=== PATIENT | female | born 1965 | race Caucasian/White ===

== ENCOUNTER 2017-03-05 16:41 | Emergency (ER) | payer BC ==
[2017-03-05 16:45] VITALS: BP 125/82; PULSE 103; TEMP 98; BMI 29.2
--- NOTE | 2017-03-13 17:54 | EKG ---
Test Reason : Blood Pressure : / mmHG Vent. Rate : 102 BPM Atrial Rate : 102 BPM P-R Int : 158 ms QRS Dur : 102 ms QT Int : 378 ms P-R-T Axes : 065 042 077 degrees QTc Int : 492 ms SINUS TACHYCARDIA ,I CANNOT RULE OUT INFERIOR WALL NC OFINDETERMINATE AGE ABNORMAL ECG WHEN COMPARED WITH ECG OF 28-FEB-2017 13:18, PREMATURE VENTRICULAR COMPLEXES ARE NO LONGER PRESENT REPEAT EKG IF CLINICALLY INDICATED Confirmed by REJI KHAN MD ([id number]) on 03/13/2017 5:54:27 PM Referred By: Confirmed By:REJI KHAN MD
== END 2017-03-05 18:17 | disposition left against medical advice (07) ==
LOC: JER 16:41
DX: Z53.21 Procedure and treatment not carried out due to patient leaving prior to being seen by health care provider (principal)
CPT/HCPCS: 93005; 93010; 99281-25

== ENCOUNTER 2017-03-05 18:33 | Emergency (ER) | payer BC ==
--- NOTE | 2017-03-05 19:12 | PDOC ---
History of Present Illness - General History Source: Patient, Old Records, Primary Care Provider Exam Limitations: No Limitations <Kacey Clements - Last Filed: 03/05/17 19:53> - General History Source: Patient Exam Limitations: No Limitations <Kelechi uAgustin I - Last Filed: 03/05/17 20:22> - General Chief Complaint: Tachycardia Stated Complaint: ABNORMAL EKG Time Seen by Provider: 03/05/17 19:09 - History of Present Illness Initial Comments: 03/05/17 19:46 The patient is a 51 year old female, with a significant past medical history of asthma, hypertension, chronic back pain, uterine CA and bilateral breast CA, who presents to the emergency department sent by her PCP for evaluation. The patient states that she is scheduled to undergo a bilateral mastectomy tomorrow secondary to breast CA and as part of her medical clearance for surgery, she had an EKG done in her PCPs office earlier today. However, in office she was slightly tachycardic at 108 bpm and her EKG was read as abnormal so she was referred to the ED for further evaluation. PAST MEDICAL HISTORY: See HPI. PAST SURGICAL HISTORY: No significant history. FAMILY HISTORY: No pertinent history. SOCIAL HISTORY: Patient lives with family and is employed. MEDICATIONS: Reviewed. ALLERGIES: As per nursing notes. Adult ROS General: No fevers or chills, no weakness, no weight loss HEENT: No change in vision. No sore throat. No ear pain CardioVascular: No chest pain or shortness of breath Respiratory: No cough or wheezing Gastrointestinal: No nausea, vomiting, diarrhea or constipation. No rectal bleeding Genitourinary: No dysuria, hematuria, or frequency Musculoskeletal: No joint or muscle pain or swelling Neurologic: No headache, vertigo, dizziness or loss of consciousness Psychiatric: No depression Skin: No rashes or easy bruising Endocrine: No increased thirst or abnormal weight change Allergic: No skin or latex allergy All other systems reviewed and normal. Adult Exam: General: Well-nourished well-developed individual, no acute distress. HEENT: Throat: Normal, tonsils normal, no erythema or exudate. Neck: Supple, no meningeal signs, no lymphadenopathy. Eyes: Pupils equal reactive and round, extraocular motion intact. Chest: Nontender to palpation. Cardiac: S1-S2 normal, regular rate and rhythm, no murmurs rubs or gallops. Respiratory: Lungs clear to auscultation bilateral. Abdomen: Soft, nondistended, normal bowel sounds, nontender to palpation diffusely. Extremities: Warm, dry, no cyanosis, clubbing or edema. Skin: No rashes. Neuro: Alert and oriented x3, nonfocal exam, grossly intact, normal gait. Psych: Normal mood and affect. (Kacey Clements) 03/05/17 20:18 A portion of this note was documented by scribe services under my direction. I have reviewed the details of the note, within reason, and agree with the documentation. The case summary and management plan written by me. This is a 51-year-old female who was sent in by her primary care doctor for evaluation of an abnormal EKG. Patient had an a.m. EKG in the office that was read by the machine as being abnormal. Patient's EKG was repeated here in the emergency room and was unchanged from the one in the office however my interpretation of the EKG is that there is no acute ST-T wave changes there is no acute pathology it is a normal EKG. Patient had a basic workup including a CBC chemistries and a TSH as well as a troponin. Patient's workup was negative however the TSH was still pending at the time patient was discharged. Patient was given copies of her blood work and well exam with her tomorrow morning when she goes for her surgery. Patient is scheduled for bilateral mastectomy for breast cancer. Patient's surgeon was called Dr. Pina and discussed the workup with him as well. I told Dr. Pina that I would give her copies of her blood work at that she would take that with her in the morning. (Kelechi Augustin I) Past History <Kacey Clements - Last Filed: 03/05/17 19:53> - Past Medical History Anemia: No Asthma: Yes Cancer: Yes (uterine ca stage 1, hemangioma of chest and thigh) Cardiac Disorders: No CVA: No COPD: No CHF: No Dementia: No Diabetes: No GI Disorders: No Disorders: No HTN: Yes Hypercholesterolemia: No Kidney Stones: Yes Liver Disease: No Suicide Attempt (Hx): No Seizures: No Thyroid Disease: No Other medical history: CHRONIC BACK PAIN - Surgical History Abdominal Surgery: No Appendectomy: No Cardiac Surgery: No Cholecystectomy: No Lung Surgery: No Neurologic Surgery: No Orthopedic Surgery: No - Immunization History Immunization Up to Date: Yes - Psycho/Social/Smoking Cessation Hx Anxiety: No Suicidal Ideation: No Smoking History: Never smoked Have you smoked in the past 12 months: Yes Number of Cigarettes Smoked Daily: 20 'Breaking Loose' booklet given: 07/11/14 Hx Alcohol Use: No Drug/Substance Use Hx: No Substance Use Type: None Hx Substance Use Treatment: No <Kelechi Augustin I - Last Filed: 03/05/17 20:22> - Past Medical History Allergies/Adverse Reactions: Allergies Allergy/AdvReac Type Severity Reaction Status Date / Time Iodine and Iodide Containing Allergy Hives Verified 03/05/17 16:46 Produc Penicillins Allergy Rash Verified 03/05/17 16:46 Home Medications: Ambulatory Orders Morphine Sulfate [Ms Contin] 15 mg PO BID 07/21/14 Diphenhydramine HCl [Benadryl Capsule -] 25 mg PO Q6H PRN #30 capsule 07/23/14 Methylnaltrexone [place] [Relistor -] 12 mg SQ DAILY PRN 02/28/17 Alprazolam [Xanax] 0.5 mg PO TID 03/05/17 Cyclobenzaprine HCl [Flexeril 10 mg] 10 mg PO BID PRN 03/05/17 Escitalopram Oxalate [Lexapro -] 10 mg PO DAILY 03/05/17 Hydrochlorothiazide [Hctz -] 25 mg PO DAILY 03/05/17 Hydromorphone [Dilaudid -] 2 mg PO Q6H 03/05/17 Valsartan [Diovan] 160 mg PO DAILY 03/05/17 Cardiac Specific PMH - Complaint Specific PMHX Pacemaker: No <Kelechi Augustin I - Last Filed: 03/05/17 20:22> - Vital Signs Last Vital Signs Temp Pulse Resp BP Pulse Ox 99.4 F 95 H 18 121/72 96 03/05/17 18:34 03/05/17 18:34 03/05/17 18:34 03/05/17 18:34 03/05/17 18:34 Heart Score/ECG Review #1 General ECG Interpretation: Sinus Rhythm, Normal Rate (95 bpm; Normal EKG.) <VeniceKacey benjamin - Last Filed: 03/05/17 19:53> ED Treatment Course - LABORATORY CBC & Chemistry Diagram: 03/05/17 19:40 03/05/17 19:40 <VeniceKacey benjamin - Last Filed: 03/05/17 19:53> - LABORATORY CBC & Chemistry Diagram: 03/05/17 19:40 03/05/17 19:40 <Kelechi Augustin Sher - Last Filed: 03/05/17 20:22> - ADDITIONAL ORDERS Additional order review: Laboratory Results 03/05/17 19:40 Sodium 135 L Potassium 3.5 Chloride 95 L Carbon Dioxide 32 H Anion Gap 8 BUN 24 H Creatinine 0.8 Creat Clearance w eGFR > 60 Random Glucose 92 Calcium 9.6 Total Bilirubin 0.2 AST 22 ALT 22 Alkaline Phosphatase 75 Creatine Kinase 65 Total Protein 6.9 Albumin 3.9 03/05/17 19:40 RBC 4.95 MCV 89.4 MCHC 33.8 RDW 13.4 MPV 9.0 Neutrophils % 71.0 Lymphocytes % 20.0 Monocytes % 5.5 Eosinophils % 1.4 Basophils % 2.1 H *DC/Admit/Observation/Transfer <VeniceKacey benjamin - Last Filed: 03/05/17 19:53> - Discharge Dispostion Admit: No <KrishnaIfeanyiKelechi hawkins Sher - Last Filed: 03/05/17 20:22> Diagnosis at time of Disposition: General medical exam - Discharge Dispostion Disposition: HOME Condition at time of disposition: Good - Referrals Referrals: Sergio Dennis MD [Primary Care Provider] - - Patient Instructions Additional Instructions: Take a copy of your blood work with you tomorrow when you go for your surgery. You were given a copy of your blood work take it with you tomorrow when you go for your surgery. A copy of her EKG was transmitted to your surgical's Center. They will also be able to get a copy of your blood work at the surgical center but take your copy with your copy with you. Return to the emergency department immediately with ANY new, persistent or worsening symptoms. Continue any medications as previously prescribed by your physician. You should follow up with your primary doctor as soon as possible regarding today's emergency department visit. . Please make sure your doctor reviews the results of your emergency evaluation. Thank you for coming to the Emergency Department today for your care. It was a pleasure to see you today. Please note that your evaluation is INCOMPLETE until you follow-up with your doctor. - Attestations Scribe Attestion: 03/05/17 19:37 Documentation prepared by Kacey Clements, acting as medical reimbursement specialist for Kelechi Augustin MD. (Kacey Clements)
[2017-03-05 19:13] VITALS: BP 121/72; PULSE 95; TEMP 99.4; BMI 29.2
[2017-03-05 19:57] LABS: BASOPHIL 2.1 % (0-2.0); EOSINOPHIL 1.4 % (0-4.5); MCH 30.2 pg (25.7-33.7); MCHC 33.8 g/dl (32.0-36.0); MEAN CELL VOLUME 89.4 fl (80-96); PLATELET COUNT 219 K/MM3 (134-434); RDW 13.4 % (11.6-15.6); WHITE BLOOD COUNT 8.3 K/mm3 (4.0-10.8)
[2017-03-05 20:13] LABS: ALBUMIN 3.9 g/dl (3.5-5.0); ALK PHOS 75 U/L (32-92); ANION GAP 8 (8-16); BILIRUBIN,TOTAL 0.2 mg/dl (0.2-1.0); CALCIUM 9.6 mg/dl (8.4-10.2); CO2 32 mmol/L (22-28); CPK 65 IU/L (26-192); CREATININE 0.8 mg/dl (0.6-1.3); GLUCOSE,RANDOM 92 mg/dl (74-106); SGOT/AST 22 U/L (10-42); SGPT/ALT 22 U/L (10-40); TOT PROT 6.9 g/dl (6.4-8.3)
[2017-03-05 20:22] LABS: TROPONIN I (DFP) < 0.03 ng/ml (0.03-0.50)
[2017-03-05 21:19] LABS: THYROID STIMULATING HORMONE 0.36 uIU/ml (0.358-3.74)
--- NOTE | 2017-03-06 19:34 | EKG ---
Test Reason : Blood Pressure : / mmHG Vent. Rate : 095 BPM Atrial Rate : 095 BPM P-R Int : 148 ms QRS Dur : 104 ms QT Int : 380 ms P-R-T Axes : 060 029 070 degrees QTc Int : 477 ms NORMAL SINUS RHYTHM LEFT ATRIAL ABNORMALITY ST-T ABNORMALITIES WHEN COMPARED WITH ECG OF 05-MAR-2017 16:54, ST-T ABNORMALITIES ARE AGAIN NOTED IN aVL CLINICAL CORRELATION IS RECOMMENDED Confirmed by REJI KHAN MD ([id number]) on 03/06/2017 7:34:27 PM Referred By: Jason MORALES Confirmed By:REJI KHAN MD
== END 2017-03-05 20:27 | disposition home or self-care (01) ==
LOC: FER 18:33
DX: Z01.818 Encounter for other preprocedural examination (principal); I10 Essential (primary) hypertension; J45.909 Unspecified asthma, uncomplicated; Z85.3 Personal history of malignant neoplasm of breast; Z85.42 Personal history of malignant neoplasm of other parts of uterus
CPT/HCPCS: 36415; 80053; 84443; 84484; 85025; 93005; 93010; 99282-25

== ENCOUNTER 2017-03-06 07:23 | Day surgery (SDC) | payer BC ==
[2017-02-28 13:07] VITALS: BMI 29.2
--- NOTE | 2017-02-28 14:27 | HP ---
Admitting History and Physical - Primary Care Physician PCP: Joy Maxwell - Admission Chief Complaint: bilateral breast cancer History of Present Illness: 51 yo female noted to have suspicious lesions on mammo and US bilateral breast, underwent bilateral US guided core bxs (01/19/2017) which were positive for invasive ductal carcinoma. Hormone studies as follows: right- ER positive, IA and Her 2 negative, left- ER and IA positive, Her 2 negative. Patient has opted to have bilateral mastectomies, snbxs, possible andxs with lymphoscintogram and reconstruction. History Source: Patient Limitations to Obtaining History: No Limitations - Past Medical History CLINICAL BUSINESS ANALYST: Yes: Other (hearing impaired) Cardiovascular: Yes: HTN Gastrointestinal: Yes: Other (h/o radiation colitis) Heme/Onc: Yes: Cancer (uterine cancer 2013) Infectious Disease: Yes: C-Diff, MRSA Psych: Yes: Panic - Past Surgical History Past Surgical History: Yes: Hysterectomy, Oopherectomy Additional Past Surgical History: multiple exploratory laps sec to radiation colitis - Smoking History Smoking history: Current every day smoker Have you smoked in the past 12 months: Yes Aproximately how many cigarettes per day: 20 - Alcohol/Substance Use Hx Alcohol Use: No Home Medications - Allergies Allergies/Adverse Reactions: Allergies Allergy/AdvReac Type Severity Reaction Status Date / Time Iodine and Iodide Containing Allergy Hives Verified 02/28/17 13:24 Produc Penicillins Allergy Rash Verified 02/28/17 13:24 - Home Medications Home Medications: Ambulatory Orders Morphine Sulfate [Ms Contin] 15 mg PO BID 07/21/14 Diphenhydramine HCl [Benadryl Capsule -] 25 mg PO Q6H PRN #30 capsule 07/23/14 FENTANYL 12mcg PATCH [DURAGESIC 12mcg PATCH -] 1 each TD Q72H #10 patch.td72 Methylnaltrexone [place] [Relistor -] 12 mg SQ DAILY PRN 02/28/17 Family Disease History - Family Disease History Family Disease History: CA: Mother (breast cancer 50s) Other Family History: maternal GM-breast cancer 70s. maternal cousin-breast cancer-20s. maternal aunt-uterine cancer. maternal aunt-cancer unknown type Review of Systems - Review of Systems Constitutional: reports: Chills, Other (insomnia and weight gain) Eyes: reports: Blurred Vision HENT: reports: Hearing Loss Cardiovascular: reports: Palpitations Respiratory: reports: Wheezing Musculoskeletal: reports: Back Pain, Joint Pain, Muscle Pain, Other (neck pain) Neurological: reports: Change in Speech, Syncope Hematology/Lymphatic: reports: Easily Bruised Psychiatric: reports: Anxiety Physical Examination Constitutional: Yes: Well Nourished Cardiovascular: Yes: Regular Rate and Rhythm Respiratory: Yes: CTA Bilaterally Breast(s): Yes: Other (breasts are diffusely nodular without suspicious masses or adenopathy noted bilaterally) Problem List - Problems (1) Bilateral breast cancer Code(s): C50.911 - MALIGNANT NEOPLASM OF UNSP SITE OF RIGHT FEMALE BREAST C50.912 - MALIGNANT NEOPLASM OF UNSPECIFIED SITE OF LEFT FEMALE BREAST Qualifiers: Breast location: overlapping sites of breast Patient sex: female Assessment/Plan Plan: bilateral mastectomy with snbx, poss andx, lymphoscintogram and reconstruction
[2017-03-06] MEDS ORDERED: ISOSULFAN BLUE 10 MG/ML VIAL SQ ONE (07:56)
[2017-03-06] MEDS ORDERED: HEPARIN NA (PORCINE) 5,000 UNITS/ML 1ML VIAL ONE (07:56)
[2017-03-07] MEDS ORDERED: HEPARIN NA (PORCINE) 5,000 UNITS/ML 1ML VIAL SQ SCH (10:00)
--- NOTE | 2017-03-07 14:59 | HP ---
History & Physical Update - History History: Change (see notes) (Patient had an abnormal EKG during preop and was seen by a manager business continuity who has cleared patient.) - Physical Physical: No Change - Assessment Assessment: No Change - Plan Plan: No Change
[2017-03-14] MEDS ORDERED: HEPARIN NA (PORCINE) 5,000 UNITS/ML 1ML VIAL SQ SCH (10:00)
== END 2017-03-06 09:30 | disposition home or self-care (01) ==
LOC: JASUSAT 07:23 → JSAMEDAYSX 07:23 → UNDOADMIN 07:23 → EDSTATUS 09:00 → UNDODISIN 09:30 → JASUSAT 09:30
PROVIDERS: ATTEND Surgery Surgical Oncology
PROC: 0HBV0ZZ Excision of Bilateral Breast, Open Approach (ICD-10-PCS; principal; 2017-03-06)
DX: C50.912 Malignant neoplasm of unspecified site of left female breast (principal); C50.911 Malignant neoplasm of unspecified site of right female breast; Z53.8 Procedure and treatment not carried out for other reasons
CPT/HCPCS: 78195-TC; A9541; J1644

== ENCOUNTER 2017-03-13 06:06 | Inpatient (IN) | payer BC ==
[2017-03-13 06:38] VITALS: BMI 29.2
[2017-03-13] MEDS ORDERED: ACETAMINOPHEN INJECTION 200 ML IVPB ONE (07:34)
[2017-03-13] MEDS ORDERED: ROPIVACAINE HCL 0.5% 30ML VIAL ONE (07:36)
[2017-03-13] MEDS ORDERED: DESFLURANE GAS 240 ML BOTTLE IH ONE (07:36)
[2017-03-13] MEDS ORDERED: SEVOFLURANE 250 ML BTL ONE (07:36)
[2017-03-13] MEDS ORDERED: SCOPOLAMINE HYDROBROMIDE 1 PATCH PATCH.TD72 ONE (07:36)
[2017-03-13] MEDS ORDERED: PROPOFOL 20 ML ONE ×2 (07:44)
[2017-03-13] MEDS ORDERED: ISOSULFAN BLUE 10 MG/ML VIAL SQ ONE (07:44)
[2017-03-13] MEDS ORDERED: PHENYLEPHRINE HCL 10 MG/1 ML SINGLE DOSE VIAL ONE (07:44)
[2017-03-13] MEDS ORDERED: DEXAMETHASONE SOD PHOSPHATE 4 MG/1 ML VIAL ONE (07:44)
[2017-03-13] MEDS ORDERED: ROCURONIUM BROMIDE 50 MG/5 ML VIAL ONE ×4 (07:45)
[2017-03-13] MEDS ORDERED: MIDAZOLAM HCL 2 MG/2 ML SINGLE DOSE VIAL ONE ×2 (07:45)
[2017-03-13] MEDS ORDERED: SUCCINYLCHOLINE CHLORIDE 200 MG/10 ML VIAL ONE (07:45)
[2017-03-13] MEDS ORDERED: LIDOCAINE HCL/PF 2% SDV 5ML VIAL ONE (07:50)
[2017-03-13] MEDS ORDERED: DEXAMETHASONE SOD PHOSPHATE/PF 10 MG/ML SDV ONE (07:59)
[2017-03-13] MEDS ORDERED: ZOLPIDEM TARTRATE 5 MG TABLET PO PRN (08:59)
[2017-03-13] MEDS ORDERED: ONDANSETRON 4 MG/2 ML VIAL IVPB PRN (08:59)
[2017-03-13] MEDS ORDERED: DEXTROSE 5%-0.45% SALINE 1,000 ML IV SCH (09:00)
[2017-03-13] MEDS ORDERED: CYCLOBENZAPRINE HCL 10 MG TABLET (FP) PO PRN (09:01)
[2017-03-13] MEDS ORDERED: HYDROmorphone HCL 2 MG TABLET PO SCH (09:15)
[2017-03-13] MEDS ORDERED: HEPARIN NA (PORCINE) 5,000 UNITS/ML 1ML VIAL ONE (09:21)
[2017-03-13] MEDS ORDERED: LEVOFLOXACIN 500 MG IVPB 100 ML IVPB ONE ×2 (09:25→16:53)
[2017-03-13] MEDS ORDERED: CLINDAMYCIN PHOSPHATE 600 MG/4 ML VIAL ONE (09:26)
[2017-03-13] MEDS ORDERED: CLINDAMYCIN 600 MG PREMIX BAG IVPB ONE (09:28)
[2017-03-13] MEDS: ACETAMINOPHEN 1000 MG/100 ML VIAL (NON FORMULARY) IVPB ONE ×2 (10:00→16:30)
[2017-03-13] MEDS ORDERED: amLODIPine BESYLATE 10 MG TABLET (FP) PO SCH (10:00)
[2017-03-13] MEDS ORDERED: morphine SO4 SUSTAINED ACTING 15 MG TABLET.SA PO SCH (10:00)
[2017-03-13] MEDS ORDERED: ESCITALOPRAM OXALATE 10 MG TABLET (FP) PO SCH (10:00)
[2017-03-13] MEDS ORDERED: HYDROmorphone HCL/PF 1 MG/ML VIAL (FOR PYXIS CHARGING ONLY) ONE (10:42)
[2017-03-13] MEDS ORDERED: GENTAMICIN SO4 80 MG/2 ML VIAL ONE ×2 (11:31→12:38)
[2017-03-13] MEDS ORDERED: SODIUM CHLORIDE 0.9% P/F 10 ML VIAL IJ ONE (13:22)
[2017-03-13] MEDS ORDERED: GLYCOPYRROLATE 0.2 MG/1 ML VIAL ONE (13:22)
[2017-03-13] MEDS ORDERED: NEOSTIGMINE METHYLSULFATE 0.5 MG/ML - 10 ML MDV ONE (13:25)
[2017-03-13] MEDS ORDERED: HYDROmorphone *PCA* 10MG/50ML DISP.SYRIN PCA ONE (15:50)
[2017-03-13] MEDS ORDERED: ONDANSETRON 4 MG/2 ML VIAL IVPUSH PRN (15:55)
[2017-03-13] MEDS ORDERED: PROMETHAZINE HCL 25 MG/1 ML VIAL IVPUSH PRN (15:55)
[2017-03-13] MEDS ORDERED: PROMETHAZINE HCL 25 MG/1 ML VIAL IVPB PRN (15:55)
--- NOTE | 2017-03-13 15:55 | OP ---
Operative Note - Note: Operative Date: 03/13/17 Pre-Operative Diagnosis: bilateral absence of breasts Operation: bilateral breast reconstruction with tissue expanders and ADM, bilateral axillary closures and SPY Findings: above Post-Operative Diagnosis: Same as Pre-op Surgeon: Alan Sharma Tack Cleaner: Yoon Thrasher Anesthesia: General Specimens Removed: bilateral breast skin Estimated Blood Loss (mls): 400 Drains & Tubes with Location: OSMAR x 2 each side
[2017-03-13] MEDS ORDERED: LACTATED RINGERS SOLUTION 1,000 ML IV SCH (16:00)
[2017-03-13] MEDS: HYDROmorphone *PCA* 10MG/50ML DISP.SYRIN PCA SCH (16:05)
--- NOTE | 2017-03-13 16:12 | SURG ---
Surgery Tobacco Packing Machine Operator Note Tobacco Packing Machine Operator: Yoon Thrasher PA-C Date of Service: 03/13/17 Diagnosis: bilateral absence of breasts Procedure: bilateral breast reconstruction with tissue expanders and ADM, bilateral axillary closures and SPY I was present for the entirety of the operative procedure. For further detail, please refer to operative report. Visit type - Case Type Case Type: Scheduled Admission - Emergency Emergency Visit: No - New patient This patient is new to me today: Yes Date on this admission: 03/13/17 - Critical Care Critical Care patient: No
--- NOTE | 2017-03-13 16:48 | OP ---
DATE OF OPERATION: 03/13/2017 ADDENDUM Please note that the patient was given sequential compression stockings and GLEN hose preoperatively and were on for the entirety of the case. UMANG CUNNINGHAM M.D. [id number]
[2017-03-13] MEDS ORDERED: LEVOFLOXACIN 500 MG PREMIX BAG IVPB ONE (17:00)
[2017-03-13] MEDS: HYDROCHLOROTHIAZIDE 25 MG TABLET (FP) PO SCH (18:28)
[2017-03-13] MEDS: SODIUM CHLORIDE 0.9%/KCL 1,000 ML IV SCH (18:31)
--- NOTE | 2017-03-13 18:44 | OP ---
DATE OF OPERATION: 03/13/2017 PREOPERATIVE DIAGNOSIS: Bilateral breast cancer. POSTOPERATIVE DIAGNOSIS: Bilateral breast cancer. PROCEDURE: Left modified radical mastectomy, right total mastectomy, and bilateral sentinel lymph node biopsies. ANESTHESIA: General intubated. ATTENDING SURGEON: Mady Maxwell MD CUSTOMER COUNTER REPRESENTATIVE: PENG Barbosa ESTIMATED BLOOD LOSS: Minimal. COMPLICATIONS: None. Patient was made aware of the risks and benefits of the procedure and consented. She was placed in a supine position after going to Nuclear Medicine where radioactive mapping was performed on both breasts. After general anesthesia was induced, the patient was intubated. The left side was approached first, and 2.5 mL of 1% isosulfan blue were locally infiltrated. The operative site was prepped and draped in the usual sterile fashion. After waiting approximately 10 minutes with gentle manual compression, a curvilinear incision was made in the left axilla. Using blunt and sharp dissection, tissues were dissected down. Using the Neoprobe, we identified at least 4 lymph nodes that were blue and hot, and these were submitted for frozen section. Frozen section was reported as positive for metastasis. While we waited for that report, a circular incision was widely made around the left nipple. After injecting the breast with a mixture of 1 L injectable normal saline with an ampule of epinephrine and 40 mL of 1% lidocaine. Using sharp dissection with the facelift scissors, skin flaps were made superior to the clavicle, medial to the sternum, lateral to latissimus dorsi, and inferior to the inframammary fold. Using electrocautery, the breast tissue was taken off the pectoral muscle extending laterally. The clavipectoral fascia was incised, revealing the lateral chest wall and the axillary vein. Long thoracic nerve was identified and retracted medially, as well as the thoracodorsal trunk which was retracted laterally. Tissues between the two were bluntly and sharply dissected free. Hemostasis maintained by pressure and electrocautery. The specimen was then submitted with a short suture superior/long suture lateral. Additional axillary nodes were submitted separately. Investigation of the breast showed that there was some dense breast tissue anteriorly, so an additional anterior margin was submitted with a clip at the new margin. X-ray of the left breast showed that the clips were all in the specimen. Wound was copiously irrigated with normal saline. Hemostasis maintained by pressure, electrocautery, and hemoclips. That procedure was then turned over to Dr. Sharma who performed an hvac service technician reconstruction. He will dictate that portion of the procedure. After changing gloves and gowns as well as obtaining new instruments, the right side was approached. Next, 2.5 mL of 1% isosulfan blue were locally infiltrated. After waiting approximately 10 minutes, with gentle manual compression, a curvilinear incision was made in the right axilla. Using blunt and sharp dissection, tissues were dissected down where again a cluster of blue and hot lymph nodes were identified, totaling about 3 lymph nodes which were submitted for frozen section. These were reported as no evidence of metastasis. Palpation of the rest of the axilla showed no other suspicious masses, and interrogation by the Neoprobe showed the background was low, less than 10% of the baseline. The right breast was then injected with the fluid previously described. A wide circular incision was made around the nipple, and using facelift scissors, flaps were made superior to the clavicle, medial to the sternum, lateral to latissimus dorsi, and inferior to the inframammary fold. Using electrocautery, the breast tissue was taken off the pectoralis muscle extending to the latissimus dorsi. The specimen was then submitted with a short suture superior/long suture lateral. The wound was copiously irrigated with normal saline. Hemostasis maintained by electrocautery. Dr. Sharma again was to perform an hvac service technician implant on that portion of the chest wall which he will dictate separately. MADY MAXWELL M.D. [id number]
[2017-03-13] MEDS: HYDROmorphone HCL 2 MG TABLET PO SCH (21:13)
[2017-03-13] MEDS: BUDESONIDE/FORMETEROL FUMARATE 80/4.5 mcg INHALER IH SCH (21:45)
[2017-03-14] MEDS: CYCLOBENZAPRINE HCL 10 MG TABLET (FP) PO PRN (00:50)
[2017-03-14] MEDS: HYDROmorphone HCL 2 MG TABLET PO SCH (03:34)
[2017-03-14] MEDS: SODIUM CHLORIDE 0.9%/KCL 1,000 ML IV SCH (03:35)
[2017-03-14] MEDS ORDERED: HYDROmorphone *PCA* 10MG/50ML DISP.SYRIN PCA ONE (06:05)
[2017-03-14] MEDS: HYDROmorphone *PCA* 10MG/50ML DISP.SYRIN PCA SCH ×4 (06:08→23:55)
--- NOTE | 2017-03-14 08:08 | PN ---
Progress Note (short form) - Note Progress Note: POD 1 All tissues viable, VSSAF No collections, no bleed, CBC pending OSMAR's thin and functioning UOP 1000 josue shrestha d/c'd this morning OOB ambulate today Patient with pain, will continue KEYPUNCH OPERATORS SUPERVISOR for today, evaluated by anesthesia Fluids decreased to maintenance
[2017-03-14] MEDS ORDERED: HYDROmorphone *PCA* 10MG/50ML DISP.SYRIN PCA SCH (08:30)
--- NOTE | 2017-03-14 08:32 | PN ---
Progress Note (short form) - Note Progress Note: Anesthesia postop note. POD#1. S/P Bilateral mastectomy , under GETA. HIGHWAY PAINTER HELPER. Pat seen and examined. VSS. No post anesthesia complications. C/O pain. 6-04/17, when trying to move. Reviewed the HIGHWAY PAINTER HELPER . Increased Dilaudid, 0.3 mg q 6 min and 0.5 mg iv Dilaudid for breakthrough pain. D/C all po narcotic orders.Informed the RN, Ms Ferguson and the pharmacy. Will follow uo.
--- NOTE | 2017-03-14 08:56 | PN ---
Progress Note, Physician Chief Complaint: Bilateral breast cancer S/P Left modified radical mastectomy and right total mastectomy sentenel node biopsies director global and alloder reconstruction POD #1 History of Present Illness: Patient is C/O pain , eating small amounts. Anesthesia discontinued all PO narcotics and increased Dilaudid and added breakthrough dose. Patient has not been OOB walking this am - Current Medication List Current Medications: Active Medications Acetaminophen (Tylenol -) 650 mg PO Q4H PRN PRN Reason: FEVER Amlodipine Besylate (Norvasc -) 10 mg PO DAILY [facility] Budesonide/Formoterol Fumarate (Symbicort 80/4.5mcg -) 2 puff IH BID RUBEN Last Admin: 03/13/17 21:45 Dose: 2 puff Cyclobenzaprine HCl (Flexeril -) 10 mg PO BID PRN PRN Reason: PAIN Last Admin: 03/14/17 00:50 Dose: 10 mg Escitalopram Oxalate (Lexapro -) 10 mg PO DAILY [facility] Heparin Sodium (Porcine) (Heparin -) 5,000 unit SQ BID [facility] Hydrochlorothiazide (Hctz -) 25 mg PO BID@0600,1800 [facility] Last Admin: 03/13/17 18:28 Dose: Not Given Sodium Chloride (1/2 Normal Saline) 1,000 mls @ 75 mls/hr IV ASDIR [facility] Ondansetron HCl (Zofran Injection) 4 mg IVPB Q6H PRN PRN Reason: NAUSEA AND/OR VOMITING Promethazine HCl (Phenergan Injection -) 12.5 mg IVPB Q6H PRN PRN Reason: NAUSEA AND/OR VOMITING - Objective Vital Signs: Vital Signs Temperature 98.0 F 03/14/17 05:00 Pulse Rate 96 H 03/14/17 06:08 Respiratory Rate 20 03/14/17 06:08 Blood Pressure 96/70 03/14/17 06:08 O2 Sat by Pulse Oximetry (%) 93 L 03/13/17 21:00 Constitutional: Yes: Other (C/O pain) Breast(s): Yes: Other (Bilateral Flaps viable incision intact no signs of infection OSMAR drains functioning) Problem List - Problems (1) History of bilateral breast cancer Code(s): Z85.3 - PERSONAL HISTORY OF MALIGNANT NEOPLASM OF BREAST Assessment/Plan continue ARCHITECTURAL PRACTICE MANAGER to be reevaluated by anesthesia, All po narcotics were DC'd OOB with assitance Iv antibiotics SCD and heparin BID CBC pending
[2017-03-14 09:05] LABS: MCH 29.7 pg (25.7-33.7); MEAN PLT VOLUME 8.7 fl (7.5-11.1); PLATELET COUNT 180 K/MM3 (134-434); RDW 14.3 % (11.6-15.6); WHITE BLOOD COUNT 11.4 K/mm3 (4.0-10.0)
[2017-03-14] MEDS ORDERED: PT OWN MED DRAWER 7, Y5N ONE ×2 (09:22→20:47)
[2017-03-14] MEDS: ESCITALOPRAM OXALATE 10 MG TABLET (FP) PO SCH (09:32)
[2017-03-14] MEDS: amLODIPine BESYLATE 10 MG TABLET (FP) PO SCH (09:32)
[2017-03-14] MEDS: HEPARIN NA (PORCINE) 5,000 UNITS/ML 1ML VIAL SQ SCH ×2 (09:32→21:27)
[2017-03-14] MEDS: SODIUM CHLORIDE 0.45% 1,000 ML IV SCH (09:34)
[2017-03-14] MEDS: BUDESONIDE/FORMETEROL FUMARATE 80/4.5 mcg INHALER IH SCH ×2 (09:35→21:27)
--- NOTE | 2017-03-14 10:21 | CONSULT ---
Consult Reason for Consultation:: HTN - History of Present Illness History of Present Illness: 51 Y/O FEMALE WITH H/O ENDOMETRIAL CA S/P PRANAV AND DSO,HTN ADMITTED FOR MASTECTOMY PT IS POD #1 C/O PAIN WHEN MOVING - Past Medical History VP TRANSPORTATION: Yes: Other (hearing impaired) Cardio/Vascular: Yes: HTN Gastrointestinal: Yes: Other (h/o radiation colitis) Reproductive: Yes: Other (ENDOMETRIAL CA) Infectious Disease: Yes: C-Diff Psych: Yes: Anxiety, Depression, Panic - Past Surgical History Past Surgical History: Yes: Hysterectomy, Oopherectomy - Alcohol/Substance Use Hx Alcohol Use: No - Smoking History Smoking history: Current every day smoker Have you smoked in the past 12 months: Yes Aproximately how many cigarettes per day: 20 Home Medications - Allergies Allergies/Adverse Reactions: Allergies Allergy/AdvReac Type Severity Reaction Status Date / Time Iodine and Iodide Containing Allergy Hives Verified 03/05/17 16:46 Produc Penicillins Allergy Rash Verified 03/05/17 16:46 - Home Medications Home Medications: Ambulatory Orders Morphine Sulfate [Ms Contin] 15 mg PO BID 07/21/14 Cyclobenzaprine HCl [Flexeril 10 mg] 10 mg PO BID PRN 03/05/17 Escitalopram Oxalate [Lexapro -] 10 mg PO DAILY 03/05/17 Hydrochlorothiazide [Hctz -] 25 mg PO BID 03/05/17 Hydromorphone [Dilaudid -] 2 mg PO Q6H 03/05/17 Amlodipine Besylate 10 mg PO DAILY 03/13/17 Budesonide/Formeterol Fumarate [SYMBICORT 80/4.5mcg -] 2 inh PO BID 03/13/17 Family Disease History - Family Disease History Family Disease History: CA: Mother (breast cancer 50s) Review of Systems - Review of Systems Cardiovascular: reports: Chest Pain (WHEN MOVING). denies: Palpitations, Shortness of Breath Respiratory: denies: SOB, SOB on Exertion Gastrointestinal: reports: No Symptoms Physical Exam Vital Signs: Vital Signs Temperature 98.0 F 03/14/17 05:00 Pulse Rate 96 H 03/14/17 06:08 Respiratory Rate 20 03/14/17 06:08 Blood Pressure 96/70 03/14/17 06:08 O2 Sat by Pulse Oximetry (%) 93 L 03/13/17 21:00 Cardiovascular: Yes: Regular Rate and Rhythm Respiratory: Yes: Diminished Gastrointestinal: Yes: Normal Bowel Sounds, Soft Edema: No Wound/Incision: Yes: Dressing Dry and Intact Labs: CBC, BMP 03/14/17 08:00 Problem List - Problems (1) DVT prophylaxis Assessment/Plan: ORDERED Code(s): [id number] - (2) History of bilateral breast cancer Assessment/Plan: PER SURGERY ONCOLOGY CONSULT OUTPATIENT Code(s): Z85.3 - PERSONAL HISTORY OF MALIGNANT NEOPLASM OF BREAST (3) S/P mastectomy, bilateral Assessment/Plan: PER SUREGERY INCENTIVE SPIROMETRY NEBS Code(s): Z90.13 - ACQUIRED ABSENCE OF BILATERAL BREASTS AND NIPPLES (4) HTN (hypertension) Assessment/Plan: MONITOR ON MEDS Code(s): I10 - ESSENTIAL (PRIMARY) HYPERTENSION
[2017-03-14] MEDS: ALBUTEROL SO4 2.5/IPRATROPIUM 0.5 INH SOL 3 ML VIAL.NEB. NEB SCH ×2 (11:14→18:50)
[2017-03-14] MEDS: HYDROCHLOROTHIAZIDE 25 MG TABLET (FP) PO SCH (17:22)
[2017-03-15] MEDS: SODIUM CHLORIDE 0.45% 1,000 ML IV SCH (02:40)
[2017-03-15] MEDS: HYDROCHLOROTHIAZIDE 25 MG TABLET (FP) PO SCH ×3 (06:22→17:08)
[2017-03-15] MEDS: ALBUTEROL SO4 2.5/IPRATROPIUM 0.5 INH SOL 3 ML VIAL.NEB. NEB SCH ×5 (06:30→23:05)
[2017-03-15] MEDS: HYDROmorphone *PCA* 10MG/50ML DISP.SYRIN PCA SCH (07:18)
[2017-03-15] MEDS ORDERED: PT OWN MED DRAWER 7, Y5N ONE ×2 (09:06→15:21)
--- NOTE | 2017-03-15 09:06 | PN ---
Progress Note, Physician Chief Complaint: S/P bilateral mastectomy with reconstruction POD#2 History of Present Illness: Patient seen this am and continues to complain of pain. Otherwise she is tolerating po well and is ambulating. - Current Medication List Current Medications: Active Medications Acetaminophen (Tylenol -) 650 mg PO Q4H PRN PRN Reason: FEVER Albuterol/Ipratropium (Duoneb -) 1 amp NEB QIDR [facility] Last Admin: 03/15/17 06:30 Dose: 1 amp Amlodipine Besylate (Norvasc -) 10 mg PO DAILY [facility] Last Admin: 03/14/17 09:32 Dose: 10 mg Budesonide/Formoterol Fumarate (Symbicort 80/4.5mcg -) 2 puff IH BID [facility] Last Admin: 03/14/17 21:27 Dose: 2 puff Cyclobenzaprine HCl (Flexeril -) 10 mg PO BID PRN PRN Reason: PAIN Last Admin: 03/14/17 00:50 Dose: 10 mg Diphenhydramine HCl (Benadryl Injection -) 12.5 mg IVPUSH ONCE PRN PRN Reason: FOR ITCHING Escitalopram Oxalate (Lexapro -) 10 mg PO DAILY [facility] Last Admin: 03/14/17 09:32 Dose: 10 mg Heparin Sodium (Porcine) (Heparin -) 5,000 unit SQ BID [facility] Last Admin: 03/14/17 21:27 Dose: 5,000 unit Hydrochlorothiazide (Hctz -) 25 mg PO BID@0600,1800 [facility] Last Admin: 03/15/17 06:22 Dose: 25 mg Hydromorphone HCl (Dilaudid Softball Coach -) 10 mg MANAGER FLORAL MANAGER FLORAL [facility] PRN Reason: Protocol Stop: 03/21/17 09:45 Last Admin: 03/15/17 07:18 Dose: 10 mg Sodium Chloride (1/2 Normal Saline) 1,000 mls @ 75 mls/hr IV ASDIR [facility] Last Admin: 03/15/17 02:40 Dose: 75 mls/hr Ondansetron HCl (Zofran Injection) 4 mg IVPB Q6H PRN PRN Reason: NAUSEA AND/OR VOMITING Promethazine HCl (Phenergan Injection -) 12.5 mg IVPB Q6H PRN PRN Reason: NAUSEA AND/OR VOMITING - Objective Vital Signs: Vital Signs Temperature 98.3 F 03/15/17 05:00 Pulse Rate 102 H 03/15/17 06:00 Respiratory Rate 20 03/15/17 06:00 Blood Pressure 112/64 03/15/17 06:00 O2 Sat by Pulse Oximetry (%) 93 L 03/13/17 21:00 Constitutional: Yes: Well Nourished, Mild Distress Breast(s): Yes: Other (Bilateral incisions clean with flaps that are somewhat dusky. JPs with serosanginous discharge noted. Very tender to touch.) Labs: CBC, BMP 03/14/17 08:00 Problem List - Problems (1) History of bilateral breast cancer Code(s): Z85.3 - PERSONAL HISTORY OF MALIGNANT NEOPLASM OF BREAST Assessment/Plan Assessment: Bilateral mastectomy with reconstruction POD#2 Plan: Pain management consult flight attendant inflight services to see patient for VNS OOB today with assistance IS 10xs hourly Plan as per Dr. Sharma
[2017-03-15] MEDS: HEPARIN NA (PORCINE) 5,000 UNITS/ML 1ML VIAL SQ SCH ×2 (09:11→22:06)
[2017-03-15] MEDS: ESCITALOPRAM OXALATE 10 MG TABLET (FP) PO SCH (09:11)
[2017-03-15] MEDS: amLODIPine BESYLATE 10 MG TABLET (FP) PO SCH (09:11)
[2017-03-15] MEDS: BUDESONIDE/FORMETEROL FUMARATE 80/4.5 mcg INHALER IH SCH ×2 (10:10→22:12)
--- NOTE | 2017-03-15 10:32 | PN ---
Progress Note, Physician Chief Complaint: BL mastectomy History of Present Illness: Ms Reynolds, a pleasant 51 yo femal had BL mastectomy 2 days ago. Seen by me and anesthesiology in the room, complains of BL breast pain 04/17. Also has chronic back pain, for which she sees Dr Tucker Jensen outpatient. currently on PASSENGER SERVICE REPRESENTATIVE Dilaudid 10 mg/day, cyclobenzaprine 10 BID. at home takes MS contin 15 BID, and dilaudid 2 mg Q6H and cyclobenzaprine for chronic back pain. She absolutely has high tolerance to pain medications at this time and would require higher doses and better management. - Current Medication List Current Medications: Active Medications Acetaminophen (Tylenol -) 650 mg PO Q4H PRN PRN Reason: FEVER Albuterol/Ipratropium (Duoneb -) 1 amp NEB QIDR [facility] Last Admin: 03/15/17 06:30 Dose: 1 amp Amlodipine Besylate (Norvasc -) 10 mg PO DAILY [facility] Last Admin: 03/15/17 09:11 Dose: 10 mg Budesonide/Formoterol Fumarate (Symbicort 80/4.5mcg -) 2 puff IH BID [facility] Last Admin: 03/15/17 10:10 Dose: 2 puff Cyclobenzaprine HCl (Flexeril -) 10 mg PO BID PRN PRN Reason: PAIN Last Admin: 03/14/17 00:50 Dose: 10 mg Diphenhydramine HCl (Benadryl Injection -) 12.5 mg IVPUSH ONCE PRN PRN Reason: FOR ITCHING Escitalopram Oxalate (Lexapro -) 10 mg PO DAILY [facility] Last Admin: 03/15/17 09:11 Dose: 10 mg Heparin Sodium (Porcine) (Heparin -) 5,000 unit SQ BID [facility] Last Admin: 03/15/17 09:11 Dose: 5,000 unit Hydrochlorothiazide (Hctz -) 25 mg PO BID@0600,1800 [facility] Last Admin: 03/15/17 06:22 Dose: 25 mg Hydromorphone HCl (Dilaudid Filament Shaper -) 10 mg PASSENGER SERVICE REPRESENTATIVE PASSENGER SERVICE REPRESENTATIVE [facility] PRN Reason: Protocol Stop: 03/21/17 09:45 Last Admin: 03/15/17 07:18 Dose: 10 mg Sodium Chloride (1/2 Normal Saline) 1,000 mls @ 75 mls/hr IV ASDIR [facility] Last Admin: 03/15/17 02:40 Dose: 75 mls/hr Ondansetron HCl (Zofran Injection) 4 mg IVPB Q6H PRN PRN Reason: NAUSEA AND/OR VOMITING Promethazine HCl (Phenergan Injection -) 12.5 mg IVPB Q6H PRN PRN Reason: NAUSEA AND/OR VOMITING - Objective Vital Signs: Vital Signs Temperature 98.3 F 03/15/17 05:00 Pulse Rate 102 H 03/15/17 06:00 Respiratory Rate 20 03/15/17 06:00 Blood Pressure 112/64 03/15/17 06:00 O2 Sat by Pulse Oximetry (%) 93 L 03/13/17 21:00 Constitutional: Yes: Well Nourished, Calm, Mild Distress (pain) Cardiovascular: Yes: Regular Rate and Rhythm Respiratory: Yes: Regular, Diminished (BLL) Gastrointestinal: Yes: Normal Bowel Sounds Musculoskeletal: Yes: WNL Extremities: Yes: WNL Edema: No Peripheral Pulses WNL: Yes Neurological: Yes: Alert, Oriented Psychiatric: Yes: Alert, Oriented Labs: CBC, BMP 03/14/17 08:00 Problem List - Problems (1) HTN (hypertension) Code(s): I10 - ESSENTIAL (PRIMARY) HYPERTENSION (2) History of bilateral breast cancer Code(s): Z85.3 - PERSONAL HISTORY OF MALIGNANT NEOPLASM OF BREAST (3) S/P mastectomy, bilateral Code(s): Z90.13 - ACQUIRED ABSENCE OF BILATERAL BREASTS AND NIPPLES Assessment/Plan -BP controlled -pain management- Dr Jensen to see her -Physical therapy -labs today -Goal to get her off PASSENGER SERVICE REPRESENTATIVE -Nitro paste ordered by Surgery, would monitor her BP closely.
--- NOTE | 2017-03-15 10:54 | PN ---
Progress Note (short form) - Note Progress Note: Pain Follow up Pain is not under control,iv BEAUTY DIRECTOR helps but still needed. Continue BEAUTY DIRECTOR. Taylor Mobley MD
[2017-03-15 11:01] LABS: BASOPHIL 0.5 % (0-2.0); EOSINOPHIL 0.5 % (0-4.5); MCH 29.7 pg (25.7-33.7); MCHC 33.2 g/dl (32.0-36.0); MEAN CELL VOLUME 89.5 fl (80-96); MEAN PLT VOLUME 8.2 fl (7.5-11.1); NEUTROPHILS 74.3 % (42.8-82.8); PLATELET COUNT 160 K/MM3 (134-434); RDW 14.6 % (11.6-15.6); WHITE BLOOD COUNT 7.9 K/mm3 (4.0-10.0)
[2017-03-15 11:36] LABS: ALBUMIN 2.9 g/dl (3.4-5.0); ALK PHOS 64 U/L (45-117); ANION GAP 5 (8-16); BILIRUBIN,TOTAL 0.3 mg/dL (0.2-1.0); CALCIUM 8.7 mg/dL (8.5-10.1); CO2 33 mmol/L (21-32); CREATININE 0.7 mg/dL (0.55-1.02); GLUCOSE,RANDOM 95 mg/dL (74-106); SGOT/AST 23 U/L (15-37); SGPT/ALT 24 U/L (12-78); TOT PROT 5.9 g/dl (6.4-8.2)
[2017-03-15] MEDS ORDERED: morphine SO4 SUSTAINED ACTING 15 MG TABLET.SA PO PRN (12:32)
[2017-03-15] MEDS: NITROGLYCERIN 2% OINTMENT - 1GM PACKET TD SCH ×2 (15:28)
[2017-03-15] MEDS: morphine SO4 SUSTAINED ACTING 15 MG TABLET.SA PO SCH ×2 (17:08→22:05)
--- NOTE | 2017-03-15 19:02 | PN ---
Progress Note (short form) - Note Progress Note: VSS AF POD 2 Pain is much better controlled on MS contin 15mg TID as per pain management No collections Skin flaps with some duskiness, but I believe that they are entirely viable OOB ambulating, Good UOP Patient can go home tomorrow on current pain regimen and PO levaquin prophylaxis. f/u heron in one week.
[2017-03-15] MEDS: CYCLOBENZAPRINE HCL 10 MG TABLET (FP) PO PRN (20:08)
[2017-03-15] MEDS: LEVOFLOXACIN 500 MG TABLET (FP) PO SCH (20:08)
[2017-03-15] MEDS ORDERED: morphine SO4 SUSTAINED ACTING 15 MG TABLET.SA PO SCH (22:00)
[2017-03-15] MEDS: ACETAMINOPHEN 325 MG TABLET (FP) PO PRN (23:16)
[2017-03-16] MEDS ORDERED: HYDROmorphone HCL CARPU-JECT 1 MG/1 ML DISP.SYRIN IVPB ONE (00:30)
[2017-03-16] MEDS: morphine SO4 SUSTAINED ACTING 15 MG TABLET.SA PO SCH ×3 (05:50→21:28)
[2017-03-16] MEDS: HYDROCHLOROTHIAZIDE 25 MG TABLET (FP) PO SCH ×2 (05:51→18:28)
[2017-03-16] MEDS: ALBUTEROL SO4 2.5/IPRATROPIUM 0.5 INH SOL 3 ML VIAL.NEB. NEB SCH ×3 (06:58→17:20)
--- NOTE | 2017-03-16 08:49 | PN ---
Progress Note, Physician Chief Complaint: S/P bilateral mastectomy with reconstruction POD#2 History of Present Illness: Patient seen this am and reports better pain control then yesterday. Tolerating po well. - Current Medication List Current Medications: Active Medications Acetaminophen (Tylenol -) 650 mg PO Q4H PRN PRN Reason: FEVER Last Admin: 03/15/17 23:16 Dose: 650 mg Albuterol/Ipratropium (Duoneb -) 1 amp NEB QIDR [facility] Last Admin: 03/16/17 06:58 Dose: 1 amp Amlodipine Besylate (Norvasc -) 10 mg PO DAILY [facility] Last Admin: 03/15/17 09:11 Dose: 10 mg Budesonide/Formoterol Fumarate (Symbicort 80/4.5mcg -) 2 puff IH BID [facility] Last Admin: 03/15/17 22:12 Dose: 2 puff Cyclobenzaprine HCl (Flexeril -) 10 mg PO BID PRN PRN Reason: PAIN Last Admin: 03/15/17 20:08 Dose: 10 mg Diphenhydramine HCl (Benadryl Injection -) 12.5 mg IVPUSH ONCE PRN PRN Reason: FOR ITCHING Escitalopram Oxalate (Lexapro -) 10 mg PO DAILY [facility] Last Admin: 03/15/17 09:11 Dose: 10 mg Heparin Sodium (Porcine) (Heparin -) 5,000 unit SQ BID [facility] Last Admin: 03/15/17 22:06 Dose: 5,000 unit Hydrochlorothiazide (Hctz -) 25 mg PO BID@0600,1800 [facility] Last Admin: 03/16/17 05:51 Dose: 25 mg Levofloxacin (Levaquin -) 500 mg PO DAILY [facility] Last Admin: 03/15/17 20:08 Dose: 500 mg Morphine Sulfate (Ms Contin -) 15 mg PO TID [facility] Last Admin: 03/16/17 05:50 Dose: 15 mg Nitroglycerin (Nitro-Bid 2% Paste -) 1 inch TD DAILY [facility] Last Admin: 03/15/17 15:28 Dose: 1 inch Nitroglycerin (Nitro-Bid 2% Paste -) 1 inch TD DAILY [facility] Last Admin: 03/15/17 15:28 Dose: 1 inch Ondansetron HCl (Zofran Injection) 4 mg IVPB Q6H PRN PRN Reason: NAUSEA AND/OR VOMITING Promethazine HCl (Phenergan Injection -) 12.5 mg IVPB Q6H PRN PRN Reason: NAUSEA AND/OR VOMITING - Objective Vital Signs: Vital Signs Temperature 98.5 F 03/16/17 05:55 Pulse Rate 102 H 03/16/17 05:55 Respiratory Rate 20 03/16/17 05:55 Blood Pressure 148/86 03/16/17 05:55 O2 Sat by Pulse Oximetry (%) 96 03/15/17 23:07 Constitutional: Yes: Well Nourished, Calm Breast(s): Yes: Other (Incision is clean without discharge. OSMAR intact with serosanginous discharge noted. Flaps appear less dusky. Less pain with touch is noted. Nitrate patch in place.) Labs: CBC, BMP 03/15/17 10:45 03/15/17 10:45 Problem List - Problems (1) History of bilateral breast cancer Code(s): Z85.3 - PERSONAL HISTORY OF MALIGNANT NEOPLASM OF BREAST Assessment/Plan Assessment/Plan 1. Febrile at 101 around 10 pm but is currently afebrile -con't axbx and IS 10xs hourly 2. Will discuss possible discharge later with Dr. Maxwell 3. environmental services lead to set up VNS at home 4. Patient to followup with Dr. Maxwell and Dr. Sharma next week.
--- NOTE | 2017-03-16 09:20 | PN ---
Progress Note (short form) - Note Progress Note: Post op day33.Patient stable.NONPROFIT MANAGER was DC yesterday and patient on po pain medication now and is doing well.No any anesthesia related problem.Patient DC from the anesthesia care.
[2017-03-16] MEDS ORDERED: PT OWN MED DRAWER 7, Y5N ONE (10:03)
[2017-03-16] MEDS: BUDESONIDE/FORMETEROL FUMARATE 80/4.5 mcg INHALER IH SCH ×2 (10:04→21:31)
[2017-03-16] MEDS: LEVOFLOXACIN 500 MG TABLET (FP) PO SCH (10:05)
[2017-03-16] MEDS: amLODIPine BESYLATE 10 MG TABLET (FP) PO SCH (10:06)
[2017-03-16] MEDS: CYCLOBENZAPRINE HCL 10 MG TABLET (FP) PO PRN (10:06)
[2017-03-16] MEDS: ESCITALOPRAM OXALATE 10 MG TABLET (FP) PO SCH (10:06)
[2017-03-16] MEDS: HEPARIN NA (PORCINE) 5,000 UNITS/ML 1ML VIAL SQ SCH ×2 (10:06→21:28)
[2017-03-16] MEDS: NITROGLYCERIN 2% OINTMENT - 1GM PACKET TD SCH ×2 (10:10)
--- NOTE | 2017-03-16 10:34 | PN ---
Progress Note, Physician Chief Complaint: BL mastectomy History of Present Illness: Ms Reynolds, a pleasant 51 yo femal had BL mastectomy 2 days ago. Seen by me and anesthesiology in the room, complains of BL breast pain 04/17. Also has chronic back pain, for which she sees Dr Tucker Jensen outpatient. currently on NURSE EMERGENCY Dilaudid 10 mg/day, cyclobenzaprine 10 BID. at home takes MS contin 15 BID, and dilaudid 2 mg Q6H and cyclobenzaprine for chronic back pain. She absolutely has high tolerance to pain medications at this time and would require higher doses and better management. Still in severe pain on MS contin 15 TID and cyclobenzaprine 10 BID. Crying, anxious, has been on lexapro recently started outpatient. OOB without assistance. - Current Medication List Current Medications: Active Medications Acetaminophen (Tylenol -) 650 mg PO Q4H PRN PRN Reason: FEVER Last Admin: 03/15/17 23:16 Dose: 650 mg Albuterol/Ipratropium (Duoneb -) 1 amp NEB QIDR [facility] Last Admin: 03/16/17 06:58 Dose: 1 amp Amlodipine Besylate (Norvasc -) 10 mg PO DAILY [facility] Last Admin: 03/16/17 10:06 Dose: 10 mg Budesonide/Formoterol Fumarate (Symbicort 80/4.5mcg -) 2 puff IH BID [facility] Last Admin: 03/16/17 10:04 Dose: 2 puff Cyclobenzaprine HCl (Flexeril -) 10 mg PO BID PRN PRN Reason: PAIN Last Admin: 03/16/17 10:06 Dose: 10 mg Diphenhydramine HCl (Benadryl Injection -) 12.5 mg IVPUSH ONCE PRN PRN Reason: FOR ITCHING Escitalopram Oxalate (Lexapro -) 10 mg PO DAILY [facility] Last Admin: 03/16/17 10:06 Dose: 10 mg Heparin Sodium (Porcine) (Heparin -) 5,000 unit SQ BID [facility] Last Admin: 03/16/17 10:06 Dose: 5,000 unit Hydrochlorothiazide (Hctz -) 25 mg PO BID@0600,1800 [facility] Last Admin: 03/16/17 05:51 Dose: 25 mg Levofloxacin (Levaquin -) 500 mg PO DAILY [facility] Last Admin: 03/16/17 10:05 Dose: 500 mg Morphine Sulfate (Ms Contin -) 15 mg PO TID [facility] Last Admin: 03/16/17 05:50 Dose: 15 mg Nitroglycerin (Nitro-Bid 2% Paste -) 1 inch TD DAILY [facility] Last Admin: 03/16/17 10:10 Dose: 1 inch Nitroglycerin (Nitro-Bid 2% Paste -) 1 inch TD DAILY [facility] Last Admin: 03/16/17 10:10 Dose: 1 inch Ondansetron HCl (Zofran Injection) 4 mg IVPB Q6H PRN PRN Reason: NAUSEA AND/OR VOMITING Promethazine HCl (Phenergan Injection -) 12.5 mg IVPB Q6H PRN PRN Reason: NAUSEA AND/OR VOMITING - Objective Vital Signs: Vital Signs Temperature 98.6 F 03/16/17 09:00 Pulse Rate 102 H 03/16/17 09:00 Respiratory Rate 20 03/16/17 09:00 Blood Pressure 159/90 03/16/17 09:00 O2 Sat by Pulse Oximetry (%) 96 03/15/17 23:07 Constitutional: Yes: Well Nourished, Anxious, Mild Distress Cardiovascular: Yes: Regular Rate and Rhythm Respiratory: Yes: Other (shallow due to pain) Gastrointestinal: Yes: Normal Bowel Sounds Genitourinary: Yes: WNL Musculoskeletal: Yes: WNL Extremities: Yes: WNL Edema: No Peripheral Pulses WNL: Yes Neurological: Yes: Alert, Oriented Psychiatric: Yes: Alert, Oriented Labs: CBC, BMP 03/15/17 10:45 03/15/17 10:45 Problem List - Problems (1) HTN (hypertension) Code(s): I10 - ESSENTIAL (PRIMARY) HYPERTENSION (2) History of bilateral breast cancer Code(s): Z85.3 - PERSONAL HISTORY OF MALIGNANT NEOPLASM OF BREAST (3) S/P mastectomy, bilateral Code(s): Z90.13 - ACQUIRED ABSENCE OF BILATERAL BREASTS AND NIPPLES Assessment/Plan -BP controlled -pain management- added Valium 5 mg po TID PRN -seen by Physical therapy -labs today -off NURSE EMERGENCY -Nitro paste ordered by Surgery, would monitor her BP closely. -discharge as per surgery, when ready
[2017-03-16] MEDS: diazePAM 5 MG TABLET PO PRN ×2 (11:21→19:51)
[2017-03-16] MEDS: ACETAMINOPHEN 325 MG TABLET (FP) PO PRN (11:22)
--- NOTE | 2017-03-16 18:31 | PN ---
Progress Note (short form) - Note Progress Note: Afebrile todya All tissues viable with no collections No wound infection Pt requesting more pain meds. Dr. Jensen to make recommendations prior to discharge. If afebrile, may discharge tomorrow.
[2017-03-17] MEDS: ALBUTEROL SO4 2.5/IPRATROPIUM 0.5 INH SOL 3 ML VIAL.NEB. NEB SCH ×3 (00:05→11:13)
[2017-03-17] MEDS: CYCLOBENZAPRINE HCL 10 MG TABLET (FP) PO PRN (02:36)
[2017-03-17] MEDS: diazePAM 5 MG TABLET PO PRN (03:35)
[2017-03-17] MEDS: morphine SO4 SUSTAINED ACTING 15 MG TABLET.SA PO SCH ×2 (05:50→14:03)
[2017-03-17] MEDS: HYDROCHLOROTHIAZIDE 25 MG TABLET (FP) PO SCH (05:51)
--- NOTE | 2017-03-17 08:42 | PN ---
Progress Note, Physician History of Present Illness: 51 Y/O FEMALE WITH H/O ENDOMETRIAL CA S/P PRANAV AND DSO,HTN ADMITTED FOR MASTECTOMY PT IS POD #1 C/O PAIN WHEN MOVING - Current Medication List Current Medications: Active Medications Acetaminophen (Tylenol -) 650 mg PO Q4H PRN PRN Reason: FEVER Last Admin: 03/16/17 11:22 Dose: 650 mg Albuterol/Ipratropium (Duoneb -) 1 amp NEB QIDR [facility] Last Admin: 03/17/17 07:20 Dose: 1 amp Amlodipine Besylate (Norvasc -) 10 mg PO DAILY [facility] Last Admin: 03/16/17 10:06 Dose: 10 mg Budesonide/Formoterol Fumarate (Symbicort 80/4.5mcg -) 2 puff IH BID [facility] Last Admin: 03/16/17 21:31 Dose: 2 puff Cyclobenzaprine HCl (Flexeril -) 10 mg PO BID PRN PRN Reason: PAIN Last Admin: 03/17/17 02:36 Dose: 10 mg Diazepam (Valium -) 5 mg PO TID PRN PRN Reason: ANXIETY Last Admin: 03/17/17 03:35 Dose: 5 mg Diphenhydramine HCl (Benadryl Injection -) 12.5 mg IVPUSH ONCE PRN PRN Reason: FOR ITCHING Escitalopram Oxalate (Lexapro -) 10 mg PO DAILY [facility] Last Admin: 03/16/17 10:06 Dose: 10 mg Heparin Sodium (Porcine) (Heparin -) 5,000 unit SQ BID [facility] Last Admin: 03/16/17 21:28 Dose: 5,000 unit Hydrochlorothiazide (Hctz -) 25 mg PO BID@0600,1800 [facility] Last Admin: 03/17/17 05:51 Dose: 25 mg Levofloxacin (Levaquin -) 500 mg PO DAILY [facility] Last Admin: 03/16/17 10:05 Dose: 500 mg Morphine Sulfate (Ms Contin -) 15 mg PO TID [facility] Last Admin: 03/17/17 05:50 Dose: 15 mg Nitroglycerin (Nitro-Bid 2% Paste -) 1 inch TD DAILY [facility] Last Admin: 03/16/17 10:10 Dose: 1 inch Nitroglycerin (Nitro-Bid 2% Paste -) 1 inch TD DAILY [facility] Last Admin: 03/16/17 10:10 Dose: 1 inch Ondansetron HCl (Zofran Injection) 4 mg IVPB Q6H PRN PRN Reason: NAUSEA AND/OR VOMITING Promethazine HCl (Phenergan Injection -) 12.5 mg IVPB Q6H PRN PRN Reason: NAUSEA AND/OR VOMITING - Objective Vital Signs: Vital Signs Temperature 98 F 03/17/17 06:00 Pulse Rate 91 H 03/17/17 06:00 Respiratory Rate 20 03/17/17 06:00 Blood Pressure 160/87 03/17/17 06:00 O2 Sat by Pulse Oximetry (%) 94 L 03/16/17 20:00 Cardiovascular: Yes: Regular Rate and Rhythm Respiratory: Yes: Regular, CTA Bilaterally Gastrointestinal: Yes: Normal Bowel Sounds, Soft Wound/Incision: Yes: Dressing Dry and Intact Labs: CBC, BMP 03/15/17 10:45 03/15/17 10:45 Problem List - Problems (1) DVT prophylaxis Code(s): [id number] - (2) History of bilateral breast cancer Assessment/Plan: PER SURGERY ONCOLOGY CONSULT OUTPATIENT Code(s): Z85.3 - PERSONAL HISTORY OF MALIGNANT NEOPLASM OF BREAST (3) S/P mastectomy, bilateral Assessment/Plan: PER SUREGERY INCENTIVE SPIROMETRY NEBS Code(s): Z90.13 - ACQUIRED ABSENCE OF BILATERAL BREASTS AND NIPPLES (4) HTN (hypertension) Assessment/Plan: CONTROLLED MONITOR ON MEDS Code(s): I10 - ESSENTIAL (PRIMARY) HYPERTENSION (5) Pain Assessment/Plan: SAME MEDS D/W PT WILL FOLLOW UP OUTPATIENT Code(s): R52 - PAIN, UNSPECIFIED Assessment/Plan DC HOME ONCE CLEARED BY SURGERY
[2017-03-17 08:50] VITALS: BP 134/66; TEMP 98.8
[2017-03-17] MEDS: HEPARIN NA (PORCINE) 5,000 UNITS/ML 1ML VIAL SQ SCH (09:27)
[2017-03-17] MEDS: LEVOFLOXACIN 500 MG TABLET (FP) PO SCH (09:38)
[2017-03-17] MEDS: ESCITALOPRAM OXALATE 10 MG TABLET (FP) PO SCH (09:39)
[2017-03-17] MEDS: BUDESONIDE/FORMETEROL FUMARATE 80/4.5 mcg INHALER IH SCH (09:39)
[2017-03-17] MEDS: amLODIPine BESYLATE 10 MG TABLET (FP) PO SCH (09:39)
[2017-03-17 11:13] VITALS: PULSE 73
--- NOTE | 2017-03-19 14:42 | PATH ---
Surgical Pathology Report Patient Name: JIM BENDER [facility]. Rec. #: [id number] /Age/Gender: 1965 (Age: 51) / F Account: [id number] Location: [address] [place] [address] [place] Taken: 03/13/2017 Received: 03/13/2017 Reported: 03/19/2017 Physicians: Ray Morales Specimen(s) Received A: LEFT AXILLARY SENTINEL NODES B: RIGHT AXILLARY SENTINEL NODES C: LEFT BREAST D: ANTERIOR MARGIN E: LEFT AXILLARY CONTENTS F: RIGHT BREAST G: LEFT BREAST SKIN H: RIGHT BREAST SKIN Clinical History Bilateral breast cancer Intraoperative Consult Diagnosis A. Left axillary sentinel nodes, 3 touch preps, 2 frozen sections: 3 lymph nodes, 2 nodes positive for carcinoma. B. Right axillary nodes, 2 frozen sections: 3 lymph nodes, no carcinoma identified. Ernst Arzate M.D., 03/13/17 Final Diagnosis A. SENTINEL LYMPH NODES, LEFT AXILLARY, BIOPSY: ONE OF THREE LYMPH NODES POSITIVE FOR METASTATIC CARCINOMA (1/3). SIZE OF THE LARGERST TUMOR DEPOSIT: 0.5 CM (MACROMETASTASIS). EXTRANODAL EXTENSIONS: NOT DEFINITIVELY IDENTIFIED. Comment: Metastases in two fragments of lymph node were seen on original frozen sections; they appear to be portions of the same lymph node on the permanent sections. B. SENTINEL LYMPH NODES, RIGHT AXILLARY, BIOPSY: THREE LYMPH NODES NEGATIVE FOR METASTATIC CARCINOMA BY H&E STAIN (0/3). C. BREAST, LEFT, MASTECTOMY: INVASIVE DUCTAL CARCINOMA, MODERATELY DIFFERENTIATED, WITH FOCAL MICROPAPILLARY FEATURES (MAITE HISTOLOGIC SCORE OF 7: TUBULE FORMATION 3 OF 3, NUCLEAR PLEOMORPHISM 2 OF 2, MITOTIC RATE 2 OF 2). INVASIVE CARCINOMA FOCALITY AND SIZE: 2.5 CM FOCUS IN THE UPPER INNER QUADRANT, 1.2 CM FOCUS IN THE LOWER INNER QUADRANT AND 0.2 CM SATELLITE FOCUS IN THE UPPER INNER QUADRANT. DUCTAL CARCINOMA IN SITU (DCIS), INTERMEDIATE NUCLEAR GRADE, CRIBRIFORM AND SOLID TYPES. DCIS EXTENT: DCIS IS MINOR (<25%), PRESENT IN ASSOCIATION WITH THE FOCI OF INVASIVE CARCINOMA AND IS PRESENT FOCALLY AWAY THEM. SURGICAL RESECTION MARGINS: NEGATIVE FOR INVASIVE CARCINOMA OR DCIS; CLOSEST MARGIN (ANTERIOR SOFT TISSUE) IS 0.9 CM FROM INVASIVE CARCINOMA AND 1.2 CM FROM DCIS. PRIOR BIOPSY SITE CHANGES PRESENT (x2). LYMPHOVASCULAR INVASION: FOCALLY IDENTIFIED. PERINEURAL INVASION: NOT DEFINITIVELY IDENTIFIED. SKIN: NOT INVOLVES BY CARCINOMA NIPPLE: NOT INVOLVED BY DCIS. SKELETAL MUSCLE: NOT INVOLVED BY CARCINOMA. SURROUNDING BREAST TISSUE: FIBROCYSTIC CHANGE WITH FOCAL USUAL DUCTAL HYPERPLASIA, CYSTIC APOCRINE METAPLASIA, DUCT DILATATION, CYSTS FORMATION WITH EVIDENCE OF CYSTS RUPTURE. FOUR INTRAMAMMARY LYMPH NODES NEGATIVE FOR METASTATIC CARCINOMA (0/4). PATHOLOGIC STAGING: mpT2 pN1a (ALSO REFER TO CHECKLIST BELOW). RECEPTOR STATUS: REFER TO CHECKLIST BELOW. Comment: Immunohistochemical stain for E-cadherin performed and interpreted at [facility] on block C3 shows strong membranous staining in tumor cells supporting ductal phenotype. D. BREAST, LEFT, ANTERIOR MARGIN, EXCISION: BENIGN FATTY TISSUE. NEGATIVE FOR INVASIVE OR IN SITU CARCINOMA. E. AXILLARY CONTENTS, LEFT, DISSECTION: FOURTEEN LYMPH NODES NEGATIVE FOR METASTATIC CARCINOMA (0/14). F. BREAST, RIGHT, MASTECTOMY: INVASIVE DUCTAL CARCINOMA, MODERATELY DIFFERENTIATED, WITH LOBULAR GROWTH PATTERN (MAITE HISTOLOGIC SCORE OF 7 TUBULE FORMATION 3 OF 3, NUCLEAR PLEOMORPHISM 2 OF 2, MITOTIC RATE 2 OF 2). INVASIVE CARCINOMA FOCALITY AND SIZE: SINGLE FOCUS, 1.0 CM (LOWER INNER QUADRANT). DUCTAL CARCINOMA IN SITU (DCIS), INTERMEDIATE NUCLEAR GRADE, CRIBRIFORM AND SOLID TYPES. DCIS EXTENT: DCIS IS MINOR (<25%), ASSOCIATED WITH INVASIVE CARCINOMA. SURGICAL RESECTION MARGINS: NEGATIVE FOR INVASIVE CARCINOMA OR DCIS; CLOSEST RESECTION MARGIN (ANTERIOR SOFT TISSUE) IS >1.0 CM FROM INVASIVE CARCINOMA AND DCIS PRIOR BIOPSY SITE CHANGES PRESENT. LYMPHOVASCULAR INVASION: NOT DEFINITIVELY IDENTIFIED. PERINEURAL INVASION: NOT IDENTIFIED. SKIN: NOT INVOLVED BY CARCINOMA. NIPPLE: NOT INVOLVED BY DCIS. SURROUNDING BREAST TISSUE: INTRADUCTAL PAPILLOMA, FIBROCYSTIC CHANGE WITH FOCAL USUAL DUCTAL HYPERPLASIA, CYSTIC APOCRINE METAPLASIA, DUCT DILATATION, CYSTS FORMATION WITH EVIDENCE OF CYSTS RUPTURE. PATHOLOGIC STAGING: pT1b pN0(sn) (ALSO REFER TO CHECKLIST BELOW). RECEPTOR STATUS: REFER TO CHECKLIST BELOW. Comment: Immunohistochemical stain for E-cadherin performed and interpreted [facility] on block F22 shows strong membranous staining in tumor cells supporting ductal phenotype. G. SKIN, LEFT BREAST, EXCISION: BENIGN SKIN AND SUBCUTANEOUS TISSUE. NEGATIVE FOR INVASIVE OR IN SITU CARCINOMA. H. SKIN, RIGHT BREAST, EXCISION: BENIGN SKIN AND SUBCUTANEOUS TISSUE. NEGATIVE FOR INVASIVE CARCINOMA OR IN SITU CARCINOMA. Comments Breast Invasive Carcinoma: Surgical Pathology Cancer Case Summary Based on AJCC/UICC TNM, 7th edition PART C: Procedure _x_ Total mastectomy (including nipple and skin) Lymph Node Sampling _x_ [place] lymph nodes (left axillar) _x_ Left axillary dissection _x_ Lymph nodes present within the left breast specimen Specimen Laterality _x_ Left Tumor Size: Size of Largest Invasive Carcinoma Greatest dimension of largest focus of invasion over 1 mm: 2.5 cm (25 mm) Tumor Focality _x_ Multiple foci of invasive carcinoma Number of foci: 2 main foci and 1 satellite focus Sizes of individual foci: 2.5 cm, 1.2 cm and 0.2 cm (satellite focus) Macroscopic and Microscopic Extent of Tumor Skin _x_ Invasive carcinoma does not invade into the dermis or epidermis Nipple _x_ DCIS does not involve the nipple epidermis Skeletal Muscle _x_ Carcinoma does not invades skeletal muscle Ductal Carcinoma In Situ (DCIS) _x_ DCIS is present _x_ as a minor component (< 25% of tumor) Histologic Type of Invasive Carcinoma: _x_ Invasive ductal carcinoma with focal micropapillary features Histologic Grade: (Maite Histologic Score) Tubular Differentiation _x_ Score 3 Nuclear Pleomorphism _x_ Score 2 Mitotic Rate _x_ Score 2 Overall Grade _x_ Grade 2: scores of 7 (moderately differentiated) Margins _x_ Margins uninvolved by invasive carcinoma Distance from closest margin: 0.9 cm Specify margin: anterior soft tissue _x_ Margins uninvolved by DCIS (required only if residual DCIS is present in specimen) Distance from closest margin: 1.2 cm Specify margin: anterior soft tissue Lymph-Vascular Invasion _x_ Focally identified Lymph Nodes Total number of lymph nodes examined (sentinel and nonsentinel): 21 Number of sentinel lymph nodes examined: 3 Number of lymph nodes with macrometastases (> 2 mm): 1 Number of lymph nodes with micrometastases (>0.2 mm to 2 mm and/or >200cells):0 Number of lymph nodes with isolated tumor cells (=0.2 mm and =200 cells): 0 Size of largest metastatic deposit (if present): 0.5 cm Extranodal Extension _x_ Not identified Pathologic Staging (pTNM) Primary Tumor (Invasive Carcinoma): mpT2 Regional Lymph Nodes (pN): pN1a Distant Metastasis (pM): not applicable Biomarker Studies Results of ER and SD studies performed on this specimen (block C3) at [facility] are as follows: ER (clone [id number] mouse monoclonal antibody by [employer]): >95% nuclear staining with strong intensity (POSITIVE). SD (clone16 mouse monoclonal antibody by [employer]): `15% nuclear staining with moderate to weak intensity (POSITIVE). Results of Her2 and Ki67 studies will be reported separately in an addendum. Positive and negative controls (internal if applicable) show appropriate results. Formalin fixation and cold ischemic times are within current ASCO/CAP recommendations for ER, SD and Her2 testing. PART F: Procedure _x_ Total mastectomy (including nipple and skin) Lymph Node Sampling _x_ [place] lymph nodes (right axillary) Specimen Laterality _x_ Right Tumor Size: Size of Largest Invasive Carcinoma Greatest dimension of largest focus of invasion over 1 mm: 1.0 cm (10 mm) Tumor Focality _x_ Single focus of invasive carcinoma Macroscopic and Microscopic Extent of Tumor Skin _x_ Invasive carcinoma does not invade into the dermis or epidermis Nipple _x_ DCIS does not involve the nipple epidermis Skeletal Muscle _x_ No skeletal muscle present Ductal Carcinoma In Situ (DCIS) _x_ DCIS is present _x_ as a minor component (< 25% of tumor) Histologic Type of Invasive Carcinoma: _x_ Invasive ductal carcinoma with lobular growth features Histologic Grade: (Maite Histologic Score) Tubular Differentiation _x_ Score 3 Nuclear Pleomorphism _x_ Score 2 Mitotic Rate _x_ Score 2 Overall Grade _x_ Grade 2: scores of 6 or 7 (moderately differentiated) Margins _x_ Margins uninvolved by invasive carcinoma Distance from closest margin: >1.0 cm Specify margin: anterior soft tissue _x_ Margins uninvolved by DCIS Distance from closest margin: >1.0 mm Specify margin: anterior soft tissue Lymph-Vascular Invasion _x_ Not definitively identified Lymph Nodes Total number of lymph nodes examined (sentinel and nonsentinel): 3 Number of sentinel lymph nodes examined: 3 Number of lymph nodes with macrometastases (> 2 mm): 0 Number of lymph nodes with micrometastases (>0.2 mm to 2 mm and/or >200cells):0 Number of lymph nodes with isolated tumor cells (=0.2 mm and =200 cells): 0 Size of largest metastatic deposit (if present): n/a Extranodal Extension _x_ Not applicable Pathologic Staging (pTNM) Primary Tumor (Invasive Carcinoma): pT1b Regional Lymph Nodes (pN): pN0(sn) Distant Metastasis (pM): not applicable Biomarker Studies Results of ER and SD studies performed on this specimen (block F22) at [facility] are as follows: ER (clone [id number] mouse monoclonal antibody by [employer]): ~80% nuclear staining with moderate intensity (POSITIVE). SD (clone16 mouse monoclonal antibody by [employer]): ~90% nuclear staining with strong intensity (POSITIVE). Results of Her2 and Ki67 studies will be reported separately in an addendum. Positive and negative controls (internal if applicable) show appropriate results. Formalin fixation and cold ischemic times are within current ASCO/CAP recommendations for ER, SD and Her2 testing. Electronically Signed Venkatesh Arzate M.D. Addendum Reported: 03/21/2017 Addendum Diagnosis Part C: Results of Her2 (IHC) & Ki-67 studies performed on block C3 at [place], [place] ([id number]) are as follows: Her2 IHC (EP3 from [employer], formerly known as [id number], using [employer] Polymer Refine detection kit): 0 (Negative) Ki-67: up to 45-50% (High proliferation index) Part F: Results of Her2 (IHC) & Ki-67 studies performed on block F22 at [place], [place] ([id number]) are as follows: Her2 IHC (EP3 from [employer], formerly known as [id number], using [employer] Polymer Refine detection kit): 1+ (Negative) Ki-67: up to 15-20% (Intermediate proliferation index) Positive and negative controls (internal if applicable) show appropriate results. Venkatesh Arzate M.D. Gross Description A. Received fresh labeled "left axillary sentinel nodes" are 3 white, irregular lymph nodes with attached fat ranging from 0.7-1.1 cm in greatest dimension. The 2 larger lymph nodes are bisected and touch preps are performed on all of the lymph nodes. The specimen is entirely submitted for frozen section. The frozen section residue is entirely submitted in 2 cassettes as follows: 1-one whole bisected lymph node; 2-one whole bisected lymph node and one whole lymph node (differentially inked blue). B. Received fresh labeled "right axillary sentinel nodes" are 3 white, irregular lymph nodes with attached fat ranging from 0.3-1.7 cm in greatest dimension. The largest lymph node is bisected and one of the smaller lymph nodes is differentially inked blue. The specimen is entirely submitted for frozen section. The frozen section residue is entirely submitted in 2 cassettes as follows: 1-2 whole lymph nodes (one differentially inked blue); 2-one whole bisected lymph node. C. Received in formalin, labeled "left breast" is a 1028 gram, 22.0 x 16.0 x 6.8 cm left mastectomy specimen with a short suture marking the superior aspect and a long suture marking the lateral aspect of the specimen, per the surgeon. The anterior surface displays a 7.0 x 6.5 cm white, elliptical portion of skin with a 1.2 cm in diameter nipple. The deep margin is inked black and the anterior soft tissue margin is inked blue. The specimen is serially sectioned from medial to lateral. Sectioning reveals 2.5 x 2.5 x 2.2 cm white, indurated mass in the upper inner quadrant (UIQ). The mass is at 1.2 cm from the anterior soft tissue margin and 3.1 cm from the deep margin. There is a second mass identified in the lower inner quadrant (LIQ). The mass is 1.2 x 1.0 x 0.9 cm and is 2 cm from the skin. The remaining breast parenchyma displays foci of white fibrous tissue. There are 4 lymph nodes identified at the lateral aspect of the specimen. [employer] sections are submitted in 23 cassettes as follows: 1-serially sectioned nipple; 2-subareolar shave; 3-4-one full face bisected section of mass; 5-additional mass; 6-7-mass with anterior soft tissue margin; 8-7-ksrnzsgbxm UIQ tissue; 10-11-lower inner quadrant; 12-13-upper outer quadrant; 14-15-lower outer quadrant; 16-skin and anterior soft tissue margin; 17-deep margin; 18- two whole lymph nodes; 19-20-one bisected lymph node each; 21-22-one full face section each of second (LIQ) mass; 23-fibrous tissue surrounding second mass. Time to fixation: <1h Total formalin fixation time: ~29h D. Received in formalin labeled "anterior margin" is a 5.0 x 3.3 x 0.8 cm irregular portion of fibroadipose tissue with a clip marking the new margin, per the surgeon. The new margin is inked blue and the specimen is serially sectioned. The specimen is entirely and sequentially submitted in 7 cassettes. E. Received in formalin labeled "left axillary contents" is a 7.0 x 6.8 x 1.8 cm aggregate of yellow, lobulated adipose tissue. Sectioning reveals multiple white-brown, irregular lymph nodes. The lymph nodes are entirely submitted in 5 cassettes as follows: 1-3 whole lymph nodes; 2-5-one bisected lymph node each. F. Received in formalin, labeled "right breast" is a 1217 gram, 20.0 x 19.0 x 7.2 cm. right mastectomy specimen with a short suture marking the superior aspect and a long suture marking the lateral aspect of the specimen, per the surgeon. The anterior surface displays an 8.8 x 6.5 cm white, elliptical portion of skin with a 1.2 cm in diameter nipple. The deep margin is inked black and the anterior soft tissue margin is inked blue. The specimen is serially sectioned from lateral to medial. Sectioning reveals a focus of hemorrhage in the upper inner quadrant (UIQ). The focus of hemorrhage abuts the anterior soft tissue margin. The remaining breast parenchyma displays multiple foci of fibrocystic tissue. Additional, 0.3 cm focus of hemorrhage is seen in the lower inner quadrant (LIQ). Separately received within the same container is an additional 14.5 x 5.5 x 3.3 cm irregular, unoriented portion of fibroadipose tissue. Sectioning reveals foci of white fibrous tissue. [employer] sections are submitted in 34 cassettes as follows: 1-serially sectioned nipple; 2-subareolar shave; 3-5-UIQ possible previous biopsy site; 6-1-ctbguqcvde UIQ tissue; 10-12-lower inner quadrant; 13-15-upper outer quadrant; 16-18-lower outer quadrant; 19-skin and anterior soft tissue margin; 20-deep margin; 21-fibrous tissue firm separately received portion of tissue; 28-71-stbagmsrne LIQ tissue; 85-46-oitqmayazmyo tissue Time to fixation: <1h Total formalin fixation time: ~29h G. Received in formalin labeled "left breast skin" is a 9.0 x 5.7 cm white, irregular, unoriented portion of skin excised to a depth of 0.9 cm. Additionally received within the same container is a 17.0 x 0.8 cm white, irregular, unoriented skin shave. The epidermal surfaces are unremarkable. No lesions are identified. [employer] sections are submitted in one cassette. H. Received in formalin labeled "right breast skin" is an 11.0 x 8.0 x 1.3 cm aggregate of multiple irregular, unoriented, unremarkable portions of skin and lobulated soft tissue. No lesions or masses are identified. [employer]mer sections are submitted in one cassette. 03/13/2017 [facility]03/13/2017
== END 2017-03-17 15:25 | disposition home or self-care (01) | DRG 580 ==
LOC: JSAMEDAYSX 06:06 → EDSTATUS 08:30 → JSAMEDAYSX 09:42 → J6S 18:09
PROVIDERS: ADMIT Surgery Surgical Oncology; ATTEND Surgery Surgical Oncology
PROC: 0HHV0NZ Insertion of Tissue Expander into Bilateral Breast, Open Approach (ICD-10-PCS; 2017-03-13)
PROC: 0HRV0JZ Replacement of Bilateral Breast with Synthetic Substitute, Open Approach (ICD-10-PCS; 2017-03-13)
PROC: 4A1GXSH Monitoring of Skin and Breast Vascular Perfusion using Indocyanine Green Dye, External Approach (ICD-10-PCS; 2017-03-13)
PROC: 0HTV0ZZ Resection of Bilateral Breast, Open Approach (ICD-10-PCS; principal; 2017-03-13 08:30)
PROC: 07B60ZX Excision of Left Axillary Lymphatic, Open Approach, Diagnostic (ICD-10-PCS; 2017-03-13 08:30)
PROC: 07B50ZX Excision of Right Axillary Lymphatic, Open Approach, Diagnostic (ICD-10-PCS; 2017-03-13 08:30)
DX: C50.911 Malignant neoplasm of unspecified site of right female breast (principal); C77.3 Secondary and unspecified malignant neoplasm of axilla and upper limb lymph nodes; C50.912 Malignant neoplasm of unspecified site of left female breast; H91.8X3 Other specified hearing loss, bilateral; E78.5 Hyperlipidemia, unspecified; E05.80 Other thyrotoxicosis without thyrotoxic crisis or storm; E66.8 Other obesity; I10 Essential (primary) hypertension; F41.8 Other specified anxiety disorders; F17.210 Nicotine dependence, cigarettes, uncomplicated; M54.89 Other dorsalgia; Z85.42 Personal history of malignant neoplasm of other parts of uterus; Z68.29 Body mass index [BMI] 29.0-29.9, adult
CPT/HCPCS: 36415; 80053; 85025; 85027; 86850; 86900; 86901; 88305-TC; 88307-TC; 88331-TC; 88332; 94010; 94640; 94760; 97116-GP; 97161-GP; J1644

== ENCOUNTER 2019-06-20 12:58 | Day surgery (SDC) | payer BC ==
[2019-06-20 13:29] LABS: BASO % 0.6 % (0-2.0); EOS % 1.3 % (0-4.5); HEMOGLOBIN 15.8 GM/dL (10.7-15.3); LYMPH % 27.7 % (8-40); MCH 30.2 pg (25.7-33.7); MCHC 33.6 g/dl (32.0-36.0); MEAN CELL VOLUME 89.7 fl (80-96); MEAN PLT VOLUME 8.3 fl (7.5-11.1); MONO % 8.1 % (3.8-10.2); NEUT % 62.3 % (42.8-82.8); PLATELET COUNT 188 K/MM3 (134-434); RBC 5.24 M/mm3 (3.60-5.2); RDW 15.4 % (11.6-15.6); WHITE BLOOD COUNT 5.6 K/mm3 (4.0-10.0)
[2019-06-20 13:59] LABS: BILIRUBIN,TOTAL 0.4 mg/dL (0.2-1); BLOOD UREA NITROGEN 24.8 mg/dL (7-18); CALCIUM 9.6 mg/dL (8.5-10.1); CREATININE 0.9 mg/dL (0.55-1.3); POTASSIUM 3.2 mmol/L (3.5-5.1); TOT PROT 7.1 g/dl (6.4-8.2)
[2019-06-20 14:00] LABS: INR 0.99 (0.83-1.09); PROTHROMBIN TIME (PATIENT) 11.7 SEC (9.7-13.0)
[2019-06-20 14:33] VITALS: BP 137/91; PULSE 110; TEMP 98.7; BMI 30.9
== END 2019-06-20 16:30 | disposition home or self-care (01) ==
LOC: JRADIR 12:58
PROVIDERS: ATTEND Neurological Surgery
DX: Z53.8 Procedure and treatment not carried out for other reasons (principal)
CPT/HCPCS: 36415; 80053; 85025; 85610

== ENCOUNTER 2019-06-26 09:06 | Day surgery (SDC) | payer BC ==
[2019-06-25 18:05] VITALS: BMI 30.9
[2019-06-26] MEDS ORDERED: methylPREDNISolone NA SUCC 125 MG/2 ML VIAL IVPUSH ONE (10:42)
[2019-06-26 15:15] VITALS: TEMP 97.9
[2019-06-26 16:16] VITALS: BP 152/108; PULSE 102
== END 2019-06-26 16:00 | disposition home or self-care (01) ==
LOC: JRADIR 09:06
PROVIDERS: ATTEND Neurological Surgery
PROC: 3E0R3KZ Introduction of Other Diagnostic Substance into Spinal Canal, Percutaneous Approach (ICD-10-PCS; principal; 2019-06-26)
PROC: B01BYZZ Fluoroscopy of Spinal Cord using Other Contrast (ICD-10-PCS; 2019-06-26)
DX: M50.80 Other cervical disc disorders, unspecified cervical region (principal)
CPT/HCPCS: 62302; 72125-TC; 72240-TC-FY

== ENCOUNTER → 2019-10-03 | Day surgery (SDC) | payer BC | END | disposition home or self-care (01) | LOC: JRADIR 09:10 | PROVIDERS: ATTEND Nurse Practitioner | PROC: 0TP5X0Z Removal of Drainage Device from Kidney, External Approach (ICD-10-PCS; principal; 2019-10-03) | DX: N13.8 Other obstructive and reflux uropathy (principal) | CPT/HCPCS: 50431 ==

== ENCOUNTER 2021-04-12 11:56 | Inpatient (IN) | payer BC ==
[2021-04-12 14:32] LABS: EPI CELLS 14 /uL (0-25.1); HYALINE CASTS 1 /uL (0-3.1); PH,URINE 5.5 (5.0-8.0); URINE APPEARANCE CLEAR; URINE BACTERIA 14 /uL (0-1359); URINE BILIRUBIN NEGATIVE (NEGATIVE); URINE COLOR YELLOW; URINE GLUCOSE (UA) NEGATIVE (NEGATIVE); URINE KETONE NEGATIVE (NEGATIVE); URINE LEUK ESTERASE 2+ (NEGATIVE); URINE NITRITE NEGATIVE (NEGATIVE); URINE PROTEIN TRACE (NEGATIVE); URINE RBC 19 /uL (0-23.9); URINE UROBILINOGEN 0.2 mg/dL (0.2-1.0); URINE WBC 77 /uL (0-25.8)
[2021-04-12 15:16] LABS: ALBUMIN 3.5 g/dl (3.4-5.0); CALCIUM 8.6 mg/dL (8.5-10.1)
[2021-04-12 15:17] LABS: BLOOD UREA NITROGEN 76.7 mg/dL (7-18); MAGNESIUM 2.2 mg/dL (1.8-2.4)
[2021-04-12 15:19] LABS: URIC ACID 4.7 mg/dL (2.6-7.2)
[2021-04-12 15:20] LABS: CREATININE 4.6 mg/dL (0.55-1.3)
[2021-04-12 15:21] LABS: BILIRUBIN,TOTAL 0.4 mg/dL (0.2-1); TOT PROT 7.8 g/dl (6.4-8.2)
[2021-04-12 15:44] LABS: BASO % 0.8 % (0-2.0); EOS % 1.9 % (0-4.5); HEMATOCRIT 30.1 % (32.4-45.2); LYMPH % 15.7 % (8-40); MCH 31.6 pg (25.7-33.7); MCHC 33.2 g/dl (32.0-36.0); MEAN CELL VOLUME 95.2 fl (80-96); MEAN PLT VOLUME 8.7 fl (7.5-11.1); MONO % 6.7 % (3.8-10.2); NEUT % 74.9 % (42.8-82.8); PLATELET COUNT 167 10^3/uL (134-434); RBC 3.16 M/mm3 (3.60-5.2); RDW 14.3 % (11.6-15.6); WHITE BLOOD COUNT 5.4 K/mm3 (4.0-10.0)
[2021-04-12 15:54] LABS: INR 0.94 (0.83-1.09); PROTHROMBIN TIME (PATIENT) 11.6 SEC (9.7-13.0)
[2021-04-12 16:06] LABS: CHLORIDE 111 mmol/L (98-107); SODIUM 141 mmol/L (136-145)
[2021-04-12 16:08] LABS: CALCIUM 8.5 mg/dL (8.5-10.1)
[2021-04-12 16:09] LABS: ALBUMIN 3.4 g/dl (3.4-5.0); ANION GAP 6 MMOL/L (8-16); BLOOD UREA NITROGEN 78.9 mg/dL (7-18); CO2 23 mmol/L (21-32); GLUCOSE,RANDOM 132 mg/dL (74-106); MAGNESIUM 2.1 mg/dL (1.8-2.4)
[2021-04-12 16:12] LABS: CREATININE 4.6 mg/dL (0.55-1.3); PHOSPHOROUS 4.7 mg/dL (2.5-4.9); SGOT/AST 20 U/L (15-37); SGPT/ALT 18 U/L (13-61)
[2021-04-12 16:13] LABS: BILIRUBIN,TOTAL 0.3 mg/dL (0.2-1)
[2021-04-12 16:14] LABS: TOT PROT 7.5 g/dl (6.4-8.2)
[2021-04-12 16:15] LABS: ALK PHOS 88 U/L (45-117)
[2021-04-12] MEDS ORDERED: ACETAMINOPHEN 325 MG TABLET (FP) PO PRN (17:05)
[2021-04-12] MEDS ORDERED: SODIUM CHLORIDE 1,000 ML IV SCH (17:15)
[2021-04-12] MEDS ORDERED: ALBUTEROL SO4 HFA INHALER IH PRN (17:15)
[2021-04-12] MEDS ORDERED: SODIUM CHLORIDE 0.45% 1,000 ML IV SCH (17:30)
[2021-04-12] MEDS: HEPARIN NA (PORCINE) 5,000 UNITS/ML 1ML VIAL SQ SCH (22:12)
[2021-04-12] MEDS: oxyCODONE HCL 10 MG SUSTAINED ACTING TABLET PO SCH (22:12)
[2021-04-13] MEDS: oxyCODONE HCL 5 MG TABLET PO PRN ×3 (00:09→15:55)
[2021-04-13] MEDS: BUDESONIDE/FORMETEROL FUMARATE 160/4.5 mcg INHALER IH SCH ×3 (00:11→21:24)
[2021-04-13 08:36] LABS: BASO % 0.9 % (0-2.0); EOS % 2.5 % (0-4.5); HEMATOCRIT 28.9 % (32.4-45.2); HEMOGLOBIN 9.6 GM/dL (10.7-15.3); LYMPH % 18.9 % (8-40); MCH 31.6 pg (25.7-33.7); MCHC 33.4 g/dl (32.0-36.0); MEAN CELL VOLUME 94.7 fl (80-96); MEAN PLT VOLUME 8.3 fl (7.5-11.1); MONO % 9.9 % (3.8-10.2); NEUT % 67.8 % (42.8-82.8); PLATELET COUNT 150 10^3/uL (134-434); RBC 3.05 M/mm3 (3.60-5.2); RDW 14.2 % (11.6-15.6); WHITE BLOOD COUNT 5.2 K/mm3 (4.0-10.0)
[2021-04-13 08:43] LABS: INR 0.99 (0.83-1.09); PROTHROMBIN TIME (PATIENT) 12.2 SEC (9.7-13.0)
[2021-04-13 09:10] LABS: CALCIUM 8.2 mg/dL (8.5-10.1)
[2021-04-13 09:11] LABS: BLOOD UREA NITROGEN 80.1 mg/dL (7-18)
[2021-04-13 09:13] LABS: CREATININE 4.7 mg/dL (0.55-1.3)
[2021-04-13 09:15] LABS: BILIRUBIN,TOTAL 0.4 mg/dL (0.2-1); TOT PROT 6.6 g/dl (6.4-8.2)
[2021-04-13] MEDS: oxyCODONE HCL 10 MG SUSTAINED ACTING TABLET PO SCH ×2 (13:00→21:25)
[2021-04-13] MEDS ORDERED: predniSONE 40 MG, predniSONE 10 MG PO ONE (14:45)
[2021-04-13] MEDS ORDERED: PT OWN MED DRAWER 7, Y5N ONE (15:43)
[2021-04-13] MEDS: amLODIPine BESYLATE 5 MG TABLET (FP) PO SCH (15:55)
[2021-04-13] MEDS: NEBIVOLOL 10 MG TABLET (FP) PO SCH (18:39)
[2021-04-13] MEDS ORDERED: predniSONE 20 MG TABLET (UD) PO SCH (20:00)
[2021-04-13] MEDS ORDERED: predniSONE 20 MG TABLET (UD) PO ONE (20:00)
[2021-04-13] MEDS ORDERED: predniSONE 20 MG TABLET (UD) ONE (20:19)
[2021-04-13] MEDS ORDERED: predniSONE 10 MG TABLET (UD) ONE (20:19)
[2021-04-13] MEDS: predniSONE 40 MG, predniSONE 10 MG PO SCH (20:31)
[2021-04-13] MEDS: diazePAM 2 MG TABLET PO PRN (20:32)
[2021-04-14] MEDS ORDERED: predniSONE 10 MG TABLET (UD) ONE ×2 (01:11→07:48)
[2021-04-14] MEDS ORDERED: predniSONE 20 MG TABLET (UD) ONE ×2 (01:12→07:48)
[2021-04-14] MEDS: oxyCODONE HCL 5 MG TABLET PO PRN ×4 (01:31→20:24)
[2021-04-14] MEDS: predniSONE 40 MG, predniSONE 10 MG PO SCH ×2 (01:32→07:53)
[2021-04-14] MEDS ORDERED: predniSONE 20 MG TABLET (UD) PO ONE ×2 (02:00→08:00)
[2021-04-14] MEDS ORDERED: predniSONE 40 MG, predniSONE 10 MG PO ONE ×3 (02:00→08:00)
[2021-04-14] MEDS ORDERED: diphenhydrAMINE HCL 25 MG CAPSULE (FP) PO ONE ×2 (08:00)
[2021-04-14] MEDS ORDERED: SODIUM CHLORIDE 500 ML IV ONE (09:40)
[2021-04-14] MEDS ORDERED: MIDAZOLAM HCL 2 MG/2 ML SINGLE DOSE VIAL IVPUSH ONE ×3 (09:50→10:15)
[2021-04-14] MEDS: oxyCODONE HCL 10 MG SUSTAINED ACTING TABLET PO SCH ×2 (10:00→21:49)
[2021-04-14] MEDS ORDERED: PT OWN MED DRAWER 7, Y5N ONE (13:54)
[2021-04-14] MEDS: amLODIPine BESYLATE 5 MG TABLET (FP) PO SCH (14:13)
[2021-04-14] MEDS: NEBIVOLOL 10 MG TABLET (FP) PO SCH (14:13)
[2021-04-14] MEDS: BUDESONIDE/FORMETEROL FUMARATE 160/4.5 mcg INHALER IH SCH ×2 (14:14→21:54)
[2021-04-14] MEDS: diazePAM 2 MG TABLET PO PRN (21:53)
[2021-04-15] MEDS: oxyCODONE HCL 5 MG TABLET PO PRN ×3 (02:51→19:35)
[2021-04-15 09:10] LABS: BASO % 0.1 % (0-2.0); HEMATOCRIT 29.1 % (32.4-45.2); HEMOGLOBIN 9.6 GM/dL (10.7-15.3); LYMPH % 10.7 % (8-40); MCH 31.2 pg (25.7-33.7); MCHC 32.9 g/dl (32.0-36.0); MEAN CELL VOLUME 94.9 fl (80-96); MONO % 7.3 % (3.8-10.2); NEUT % 81.9 % (42.8-82.8); PLATELET COUNT 164 10^3/uL (134-434); RBC 3.06 M/mm3 (3.60-5.2); RDW 14.4 % (11.6-15.6); WHITE BLOOD COUNT 9.4 K/mm3 (4.0-10.0)
[2021-04-15 09:33] LABS: CALCIUM 8.9 mg/dL (8.5-10.1)
[2021-04-15 09:34] LABS: ALBUMIN 3.4 g/dl (3.4-5.0); BLOOD UREA NITROGEN 86.9 mg/dL (7-18)
[2021-04-15 09:37] LABS: CREATININE 4.9 mg/dL (0.55-1.3)
[2021-04-15 09:38] LABS: BILIRUBIN,TOTAL 0.5 mg/dL (0.2-1)
[2021-04-15 09:39] LABS: TOT PROT 7.4 g/dl (6.4-8.2)
[2021-04-15] MEDS ORDERED: PT OWN MED DRAWER 7, Y5N ONE (10:51)
[2021-04-15] MEDS: oxyCODONE HCL 10 MG SUSTAINED ACTING TABLET PO SCH ×2 (10:52→21:09)
[2021-04-15] MEDS: amLODIPine BESYLATE 5 MG TABLET (FP) PO SCH (10:53)
[2021-04-15] MEDS: NEBIVOLOL 10 MG TABLET (FP) PO SCH (10:53)
[2021-04-15] MEDS: BUDESONIDE/FORMETEROL FUMARATE 160/4.5 mcg INHALER IH SCH ×2 (10:53→22:37)
[2021-04-15] MEDS: HEPARIN NA (PORCINE) 5,000 UNITS/ML 1ML VIAL SQ SCH ×2 (15:09→21:09)
[2021-04-15] MEDS: diazePAM 2 MG TABLET PO PRN (15:16)
[2021-04-15] MEDS ORDERED: oxyCODONE HCL 5 MG TABLET PO ONE (23:45)
[2021-04-15] MEDS ORDERED: ACETAMINOPHEN 325 MG TABLET (FP) PO ONE (23:45)
[2021-04-16] MEDS: oxyCODONE HCL 5 MG TABLET PO PRN ×3 (04:51→19:00)
[2021-04-16] MEDS ORDERED: PT OWN MED DRAWER 7, Y5N ONE (09:15)
[2021-04-16] MEDS: oxyCODONE HCL 10 MG SUSTAINED ACTING TABLET PO SCH ×2 (09:21→21:36)
[2021-04-16] MEDS: NEBIVOLOL 10 MG TABLET (FP) PO SCH ×2 (09:22→11:13)
[2021-04-16] MEDS: amLODIPine BESYLATE 5 MG TABLET (FP) PO SCH ×2 (09:22→11:14)
[2021-04-16] MEDS: PANTOPRAZOLE 40 MG TABLET PO SCH (09:22)
[2021-04-16] MEDS: HEPARIN NA (PORCINE) 5,000 UNITS/ML 1ML VIAL SQ SCH ×2 (09:22→21:37)
[2021-04-16] MEDS: diazePAM 2 MG TABLET PO PRN (09:22)
[2021-04-16] MEDS: BUDESONIDE/FORMETEROL FUMARATE 160/4.5 mcg INHALER IH SCH ×2 (09:32→21:37)
[2021-04-16 12:29] LABS: BASO % 0.5 % (0-2.0); HEMATOCRIT 27.7 % (32.4-45.2); HEMOGLOBIN 9.2 GM/dL (10.7-15.3); LYMPH % 23.7 % (8-40); MCH 31.6 pg (25.7-33.7); MCHC 33.4 g/dl (32.0-36.0); MEAN CELL VOLUME 94.7 fl (80-96); MONO % 11.9 % (3.8-10.2); NEUT % 62.9 % (42.8-82.8); PLATELET COUNT 151 10^3/uL (134-434); RBC 2.92 M/mm3 (3.60-5.2); RDW 14.4 % (11.6-15.6); WHITE BLOOD COUNT 5.8 K/mm3 (4.0-10.0)
[2021-04-16 12:56] LABS: CALCIUM 8.5 mg/dL (8.5-10.1)
[2021-04-16 12:58] LABS: ALBUMIN 2.9 g/dl (3.4-5.0); BLOOD UREA NITROGEN 94.4 mg/dL (7-18)
[2021-04-16 13:01] LABS: BILIRUBIN,TOTAL 0.3 mg/dL (0.2-1); CREATININE 5.4 mg/dL (0.55-1.3); TOT PROT 6.7 g/dl (6.4-8.2)
[2021-04-17] MEDS: oxyCODONE HCL 5 MG TABLET PO PRN ×3 (00:48→20:21)
[2021-04-17 09:25] LABS: BASO % 0.5 % (0-2.0); EOS % 1.3 % (0-4.5); HEMATOCRIT 29.2 % (32.4-45.2); HEMOGLOBIN 9.6 GM/dL (10.7-15.3); LYMPH % 22.2 % (8-40); MCH 31.3 pg (25.7-33.7); MCHC 32.9 g/dl (32.0-36.0); MEAN CELL VOLUME 95.2 fl (80-96); MONO % 12.2 % (3.8-10.2); NEUT % 63.8 % (42.8-82.8); PLATELET COUNT 159 10^3/uL (134-434); RBC 3.06 M/mm3 (3.60-5.2); RDW 14.6 % (11.6-15.6)
[2021-04-17 10:08] LABS: CALCIUM 8.8 mg/dL (8.5-10.1)
[2021-04-17 10:09] LABS: ALBUMIN 3.4 g/dl (3.4-5.0); BLOOD UREA NITROGEN 98.4 mg/dL (7-18)
[2021-04-17 10:12] LABS: CREATININE 5.2 mg/dL (0.55-1.3)
[2021-04-17 10:14] LABS: BILIRUBIN,TOTAL 0.5 mg/dL (0.2-1); TOT PROT 7.3 g/dl (6.4-8.2)
[2021-04-17] MEDS: NEBIVOLOL 10 MG TABLET (FP) PO SCH (10:18)
[2021-04-17] MEDS: amLODIPine BESYLATE 5 MG TABLET (FP) PO SCH (10:18)
[2021-04-17] MEDS: HEPARIN NA (PORCINE) 5,000 UNITS/ML 1ML VIAL SQ SCH ×2 (10:21→22:01)
[2021-04-17] MEDS: PANTOPRAZOLE 40 MG TABLET PO SCH (10:22)
[2021-04-17] MEDS: oxyCODONE HCL 10 MG SUSTAINED ACTING TABLET PO SCH ×2 (10:22→22:01)
[2021-04-17] MEDS: diazePAM 2 MG TABLET PO PRN (10:22)
[2021-04-17] MEDS: BUDESONIDE/FORMETEROL FUMARATE 160/4.5 mcg INHALER IH SCH ×2 (10:25→22:01)
[2021-04-17] MEDS ORDERED: PT OWN MED DRAWER 7, Y5N ONE (11:01)
[2021-04-17] MEDS ORDERED: SODIUM CHLORIDE 500 ML IV ONE (12:00)
[2021-04-17] MEDS: SODIUM CHLORIDE 1,000 ML IV SCH (23:50)
[2021-04-18] MEDS: SODIUM CHLORIDE 1,000 ML IV SCH ×3 (00:12→17:02)
[2021-04-18] MEDS: diazePAM 2 MG TABLET PO PRN (08:18)
[2021-04-18] MEDS ORDERED: ONDANSETRON 4 MG/2 ML VIAL IVPUSH PRN ×2 (10:05→16:47)
[2021-04-18] MEDS ORDERED: PT OWN MED DRAWER 7, Y5N ONE (10:11)
[2021-04-18] MEDS: PANTOPRAZOLE 40 MG TABLET PO SCH (10:13)
[2021-04-18] MEDS: amLODIPine BESYLATE 5 MG TABLET (FP) PO SCH (10:13)
[2021-04-18] MEDS: HEPARIN NA (PORCINE) 5,000 UNITS/ML 1ML VIAL SQ SCH ×2 (10:13→22:01)
[2021-04-18] MEDS: oxyCODONE HCL 10 MG SUSTAINED ACTING TABLET PO SCH ×2 (10:14→22:00)
[2021-04-18] MEDS: NEBIVOLOL 10 MG TABLET (FP) PO SCH (10:14)
[2021-04-18] MEDS: BUDESONIDE/FORMETEROL FUMARATE 160/4.5 mcg INHALER IH SCH ×2 (10:17→22:01)
[2021-04-18 11:01] LABS: BASO % 0.3 % (0-2.0); EOS % 1.1 % (0-4.5); HEMATOCRIT 24.7 % (32.4-45.2); HEMOGLOBIN 8.1 GM/dL (10.7-15.3); LYMPH % 6.6 % (8-40); MCH 31.2 pg (25.7-33.7); MCHC 32.7 g/dl (32.0-36.0); MEAN CELL VOLUME 95.5 fl (80-96); MEAN PLT VOLUME 8.5 fl (7.5-11.1); MONO % 7.1 % (3.8-10.2); NEUT % 84.9 % (42.8-82.8); PLATELET COUNT 133 10^3/uL (134-434); RBC 2.59 M/mm3 (3.60-5.2); WHITE BLOOD COUNT 6.9 K/mm3 (4.0-10.0)
[2021-04-18] MEDS ORDERED: ceFAZolin SODIUM 1 GM VIAL ONE (13:55)
[2021-04-18] MEDS ORDERED: DEXTROSE 5%-WATER - 50 ML IVPB ONE (13:55)
[2021-04-18 14:04] VITALS: BMI 22.1
[2021-04-18] MEDS ORDERED: CEFAZOLIN 1 GM in DEXTROSE 5%-WATER - 50 ML IVPB ONE ×2 (15:00→16:47)
[2021-04-18] MEDS ORDERED: MIDAZOLAM HCL 2 MG/2 ML SINGLE DOSE VIAL ONE (15:24)
[2021-04-18] MEDS ORDERED: PROPOFOL 20 ML ONE (15:24)
[2021-04-18] MEDS ORDERED: ceFAZolin SODIUM 1 GM VIAL IVPB ONE (15:45)
[2021-04-18] MEDS ORDERED: ACETAMINOPHEN 325 MG TABLET (FP) PO PRN (16:47)
[2021-04-18] MEDS ORDERED: diazePAM 2 MG TABLET PO PRN (16:47)
[2021-04-18] MEDS ORDERED: ALBUTEROL SO4 HFA INHALER IH PRN (16:47)
[2021-04-18] MEDS ORDERED: predniSONE 40 MG, predniSONE 10 MG PO ONE (16:47)
[2021-04-18] MEDS ORDERED: CEFAZOLIN 1 GM/D5W 1 GM/50 ML BAG IVPB ONE (17:00)
[2021-04-18 19:55] LABS: BLOOD UREA NITROGEN 95.1 mg/dL (7-18)
[2021-04-18 19:58] LABS: CREATININE 4.7 mg/dL (0.55-1.3)
[2021-04-18 20:42] LABS: ALBUMIN 2.6 g/dl (3.4-5.0); BILIRUBIN,TOTAL 0.3 mg/dL (0.2-1)
[2021-04-18] MEDS: oxyCODONE HCL 5 MG TABLET PO PRN (23:46)
[2021-04-19] MEDS ORDERED: ACETAMINOPHEN 1000 MG/100 ML VIAL IVPB ONE (04:16)
[2021-04-19] MEDS: oxyCODONE HCL 5 MG TABLET PO PRN ×2 (06:19→21:30)
[2021-04-19] MEDS: SODIUM CHLORIDE 1,000 ML IV SCH (06:28)
[2021-04-19 09:51] LABS: BASO % 0.4 % (0-2.0); EOS % 2.6 % (0-4.5); HEMATOCRIT 22.8 % (32.4-45.2); HEMOGLOBIN 7.3 GM/dL (10.7-15.3); LYMPH % 18.4 % (8-40); MCH 31.3 pg (25.7-33.7); MCHC 32.2 g/dl (32.0-36.0); MEAN CELL VOLUME 97.3 fl (80-96); MEAN PLT VOLUME 9.1 fl (7.5-11.1); MONO % 9.9 % (3.8-10.2); NEUT % 68.7 % (42.8-82.8); PLATELET COUNT 119 10^3/uL (134-434); RBC 2.34 M/mm3 (3.60-5.2)
[2021-04-19 10:07] LABS: CALCIUM 7.2 mg/dL (8.5-10.1)
[2021-04-19 10:08] LABS: ALBUMIN 2.4 g/dl (3.4-5.0)
[2021-04-19 10:11] LABS: CREATININE 4.2 mg/dL (0.55-1.3)
[2021-04-19 10:13] LABS: BILIRUBIN,TOTAL 0.2 mg/dL (0.2-1); TOT PROT 5.4 g/dl (6.4-8.2)
[2021-04-19] MEDS: PANTOPRAZOLE 40 MG TABLET PO SCH (10:59)
[2021-04-19] MEDS: amLODIPine BESYLATE 5 MG TABLET (FP) PO SCH ×2 (10:59→11:25)
[2021-04-19] MEDS: oxyCODONE HCL 10 MG SUSTAINED ACTING TABLET PO SCH ×2 (10:59→22:16)
[2021-04-19] MEDS: HEPARIN NA (PORCINE) 5,000 UNITS/ML 1ML VIAL SQ SCH ×2 (11:01→22:16)
[2021-04-19] MEDS: NEBIVOLOL 10 MG TABLET (FP) PO SCH (11:25)
[2021-04-19] MEDS: BUDESONIDE/FORMETEROL FUMARATE 160/4.5 mcg INHALER IH SCH ×2 (11:28→21:32)
[2021-04-19 12:10] LABS: GLIADIN ANTIBODY IGA 2 units (0-19); GLIADIN ANTIBODY IGG 1 units (0-19); TRANSGLUTAMINASE IGG < 2 U/mL (0-5)
[2021-04-19] MEDS ORDERED: SODIUM CHLORIDE 0.45% 1,000 ML IV SCH (13:00)
[2021-04-19] MEDS: SODIUM BICARBONATE 650 MG TABLET PO SCH (13:59)
[2021-04-20] MEDS: oxyCODONE HCL 5 MG TABLET PO PRN ×2 (03:32→15:55)
[2021-04-20 08:08] LABS: BASO % 0.4 % (0-2.0); EOS % 2.8 % (0-4.5); HEMATOCRIT 28.5 % (32.4-45.2); HEMOGLOBIN 9.4 GM/dL (10.7-15.3); LYMPH % 17.7 % (8-40); MCH 31.1 pg (25.7-33.7); MEAN CELL VOLUME 94.2 fl (80-96); MEAN PLT VOLUME 8.5 fl (7.5-11.1); MONO % 10.2 % (3.8-10.2); NEUT % 68.9 % (42.8-82.8); PLATELET COUNT 131 10^3/uL (134-434); RBC 3.02 M/mm3 (3.60-5.2); RDW 15.4 % (11.6-15.6); WHITE BLOOD COUNT 5.8 K/mm3 (4.0-10.0)
[2021-04-20 08:49] LABS: ALBUMIN 2.8 g/dl (3.4-5.0); BLOOD UREA NITROGEN 88.3 mg/dL (7-18)
[2021-04-20 08:52] LABS: BILIRUBIN,TOTAL 0.4 mg/dL (0.2-1); CALCIUM 8.3 mg/dL (8.5-10.1); CREATININE 4.4 mg/dL (0.55-1.3); TOT PROT 6.2 g/dl (6.4-8.2)
[2021-04-20] MEDS ORDERED: PT OWN MED DRAWER 7, Y5N ONE (10:11)
[2021-04-20] MEDS: NEBIVOLOL 10 MG TABLET (FP) PO SCH (10:13)
[2021-04-20] MEDS: BUDESONIDE/FORMETEROL FUMARATE 160/4.5 mcg INHALER IH SCH ×2 (10:13→21:28)
[2021-04-20] MEDS: HEPARIN NA (PORCINE) 5,000 UNITS/ML 1ML VIAL SQ SCH ×2 (10:13→22:08)
[2021-04-20] MEDS: PANTOPRAZOLE 40 MG TABLET PO SCH (10:14)
[2021-04-20] MEDS: amLODIPine BESYLATE 5 MG TABLET (FP) PO SCH (10:14)
[2021-04-20] MEDS: SODIUM BICARBONATE 650 MG TABLET PO SCH (10:14)
[2021-04-20] MEDS: oxyCODONE HCL 10 MG SUSTAINED ACTING TABLET PO SCH ×2 (10:14→21:27)
[2021-04-21] MEDS: oxyCODONE HCL 5 MG TABLET PO PRN (00:14)
[2021-04-21 05:46] VITALS: PULSE 70; TEMP 98.4
[2021-04-21 09:12] LABS: HEMATOCRIT 29.4 % (32.4-45.2); HEMOGLOBIN 9.6 GM/dL (10.7-15.3); MCH 30.9 pg (25.7-33.7); MCHC 32.5 g/dl (32.0-36.0); MEAN CELL VOLUME 94.8 fl (80-96); MEAN PLT VOLUME 8.8 fl (7.5-11.1); PLATELET COUNT 141 10^3/uL (134-434); RDW 15.6 % (11.6-15.6); WHITE BLOOD COUNT 5.3 K/mm3 (4.0-10.0)
[2021-04-21 09:41] LABS: BLOOD UREA NITROGEN 89.4 mg/dL (7-18)
[2021-04-21 09:44] LABS: CREATININE 4.3 mg/dL (0.55-1.3)
[2021-04-21] MEDS: NEBIVOLOL 10 MG TABLET (FP) PO SCH (10:01)
[2021-04-21] MEDS: amLODIPine BESYLATE 5 MG TABLET (FP) PO SCH (10:02)
[2021-04-21] MEDS ORDERED: PT OWN MED DRAWER 7, Y5N ONE (10:14)
[2021-04-21 10:34] VITALS: BP 115/63
[2021-04-21] MEDS: HEPARIN NA (PORCINE) 5,000 UNITS/ML 1ML VIAL SQ SCH (10:34)
[2021-04-21] MEDS: SODIUM BICARBONATE 650 MG TABLET PO SCH (10:34)
[2021-04-21] MEDS: oxyCODONE HCL 10 MG SUSTAINED ACTING TABLET PO SCH (10:37)
[2021-04-21] MEDS: PANTOPRAZOLE 40 MG TABLET PO SCH (10:38)
[2021-04-21] MEDS: BUDESONIDE/FORMETEROL FUMARATE 160/4.5 mcg INHALER IH SCH (10:40)
== END 2021-04-21 12:34 | disposition home or self-care (01) | DRG 661 ==
LOC: JER 11:56 → JERBED 16:27 → J5S 21:53
PROVIDERS: ADMIT Family Medicine; ATTEND Family Medicine
PROC: BT14ZZZ Fluoroscopy of Kidneys, Ureters and Bladder (ICD-10-PCS; 2021-04-18)
PROC: 0TP98DZ Removal of Intraluminal Device from Ureter, Via Natural or Artificial Opening Endoscopic (ICD-10-PCS; principal; 2021-04-18 15:00)
PROC: 0T788DZ Dilation of Bilateral Ureters with Intraluminal Device, Via Natural or Artificial Opening Endoscopic (ICD-10-PCS; 2021-04-18 15:00)
PROC: 30233N1 Transfusion of Nonautologous Red Blood Cells into Peripheral Vein, Percutaneous Approach (ICD-10-PCS; 2021-04-19)
DX: N17.9 Acute kidney failure, unspecified (principal); N13.30 Unspecified hydronephrosis; J44.9 Chronic obstructive pulmonary disease, unspecified; C50.919 Malignant neoplasm of unspecified site of unspecified female breast; F17.210 Nicotine dependence, cigarettes, uncomplicated; E87.5 Hyperkalemia; D64.9 Anemia, unspecified; I10 Essential (primary) hypertension; C55 Malignant neoplasm of uterus, part unspecified; F41.8 Other specified anxiety disorders; M54.9 Dorsalgia, unspecified; N13.1 Hydronephrosis with ureteral stricture, not elsewhere classified
CPT/HCPCS: 36415; 36430; 50432; 74176-TC; 76000-TC-FY; 76775-TC; 76856-TC; 80048; 80053; 81003; 82550; 82607; 82728; 82746; 82784; 83516; 83540; 83550; 83735; 84100; 84155; 84165; 84443; 84484; 84550; 85025; 85027; 85045; 85610; 85730; 86334; 86850; 86900; 86901; 86922; 87086; 87102; 87116; 87206; 87210; 88300-TC; 93005; 93010; 94760; 99285-25; C1729; C1769; C9803; J0131; J1644; P9058; U0003; U0005

== ENCOUNTER 2021-10-16 16:48 | Inpatient (IN) | payer BC ==
[2021-10-16 17:25] VITALS: BMI 23.1
[2021-10-16] MEDS ORDERED: HYDROmorphone HCL CARPU-JECT 2 MG/1 ML DISP.SYRIN IVPUSH ONE (18:02)
[2021-10-16] MEDS ORDERED: ONDANSETRON 4 MG/2 ML VIAL IVPUSH ONE (18:04)
[2021-10-16 18:58] LABS: BASO % 0.7 % (0-2.0); EOS % 1.8 % (0-4.5); HEMATOCRIT 32.4 % (32.4-45.2); HEMOGLOBIN 10.6 GM/dL (10.7-15.3); LYMPH % 12.2 % (8-40); MCHC 32.9 g/dl (32.0-36.0); MEAN CELL VOLUME 94.2 fl (80-96); MONO % 7.1 % (3.8-10.2); NEUT % 78.2 % (42.8-82.8); PLATELET COUNT 199 10^3/uL (134-434); RBC 3.43 M/mm3 (3.60-5.2); RDW 14.7 % (11.6-15.6); WHITE BLOOD COUNT 5.8 K/mm3 (4.0-10.0)
[2021-10-16 19:19] LABS: ALBUMIN 3.2 g/dl (3.4-5.0); CALCIUM 8.4 mg/dL (8.5-10.1)
[2021-10-16 19:20] LABS: BLOOD UREA NITROGEN 70.7 mg/dL (7-18)
[2021-10-16 19:22] LABS: CREATININE 3.1 mg/dL (0.55-1.3)
[2021-10-16 19:24] LABS: BILIRUBIN,TOTAL 0.3 mg/dL (0.2-1); TOT PROT 6.9 g/dl (6.4-8.2)
[2021-10-16] MEDS ORDERED: ALBUTEROL SO4 2.5/IPRATROPIUM 0.5 INH SOL 3 ML VIAL.NEB. NEB ONE ×2 (19:31→19:53)
[2021-10-16] MEDS ORDERED: HYDROmorphone HCl 2 MG/ML VIAL ONE (19:49)
[2021-10-16] MEDS ORDERED: ONDANSETRON 4 MG/2 ML VIAL ONE (19:50)
[2021-10-16] MEDS ORDERED: MEROPENEM 500 MG in DEXTROSE 5%-WATER 100 ML IVPB ONE (20:53)
[2021-10-16] MEDS ORDERED: MEROPENEM 500 MG VIAL (RESTRICTED TO ID) IVPB ONE (21:22)
[2021-10-16 23:19] LABS: EPI CELLS 9 /uL (0-25.1); HYALINE CASTS 3 /uL (0-3.1); PH,URINE 6.5 (5.0-8.0); URINE APPEARANCE TURBID; URINE BACTERIA 4556 /uL (0-1359); URINE BILIRUBIN NEGATIVE (NEGATIVE); URINE COLOR YELLOW; URINE GLUCOSE (UA) NEGATIVE (NEGATIVE); URINE KETONE NEGATIVE (NEGATIVE); URINE LEUK ESTERASE 3+ (NEGATIVE); URINE NITRITE POSITIVE (NEGATIVE); URINE PROTEIN 2+ (NEGATIVE); URINE RBC 114 /uL (0-23.9); URINE UROBILINOGEN 0.2 mg/dL (0.2-1.0); URINE WBC 1874 /uL (0-25.8)
[2021-10-16] MEDS ORDERED: ALBUTEROL SO4 HFA INHALER IH PRN (23:29)
[2021-10-17] MEDS ORDERED: ONDANSETRON 4 MG/2 ML VIAL IVPUSH PRN (03:22)
[2021-10-17] MEDS: DEXTROSE 5%-0.45% SALINE 1,000 ML IV SCH ×2 (05:05→22:21)
[2021-10-17 08:56] LABS: BASO % 0.7 % (0-2.0); EOS % 2.2 % (0-4.5); HEMATOCRIT 28.6 % (32.4-45.2); HEMOGLOBIN 9.2 GM/dL (10.7-15.3); LYMPH % 13.4 % (8-40); MCH 30.9 pg (25.7-33.7); MCHC 32.3 g/dl (32.0-36.0); MEAN CELL VOLUME 95.8 fl (80-96); MEAN PLT VOLUME 8.7 fl (7.5-11.1); MONO % 8.4 % (3.8-10.2); NEUT % 75.3 % (42.8-82.8); PLATELET COUNT 176 10^3/uL (134-434); RBC 2.99 M/mm3 (3.60-5.2); RDW 14.3 % (11.6-15.6); WHITE BLOOD COUNT 5.8 K/mm3 (4.0-10.0)
[2021-10-17] MEDS ORDERED: MEROPENEM 500 MG in DEXTROSE 5%-WATER 100 ML IVPB SCH ×2 (09:00→10:00)
[2021-10-17] MEDS ORDERED: MEROPENEM 500 MG VIAL (RESTRICTED TO ID) IVPB ONE (09:14)
[2021-10-17] MEDS ORDERED: DEXTROSE 5%-WATER 100 ML IVPB ONE ×3 (09:14→21:52)
[2021-10-17 09:31] LABS: BLOOD UREA NITROGEN 71.8 mg/dL (7-18)
[2021-10-17 09:33] LABS: CALCIUM 7.8 mg/dL (8.5-10.1)
[2021-10-17 09:35] LABS: CREATININE 3.5 mg/dL (0.55-1.3)
[2021-10-17 09:36] LABS: BILIRUBIN,TOTAL 0.2 mg/dL (0.2-1); TOT PROT 5.7 g/dl (6.4-8.2)
[2021-10-17 09:49] LABS: ALBUMIN 2.6 g/dl (3.4-5.0)
[2021-10-17] MEDS ORDERED: FLU VACC QS2021-22(6MOS UP)/PF 60 MCG/0.5 ML SYRINGE IM ONE (10:00)
[2021-10-17] MEDS: BUDESONIDE/FORMETEROL FUMARATE 160/4.5 mcg INHALER IH SCH ×2 (11:10→22:14)
[2021-10-17] MEDS ORDERED: CEFEPIME 1 GM in DEXTROSE 5%-WATER - 100 ML IVPB SCH (11:45)
[2021-10-17] MEDS ORDERED: CEFEPIME HCL 1 GM VIAL (RESTRICTED TO ID) ONE ×2 (13:00→21:52)
[2021-10-17] MEDS: CEFEPIME 1 GM in DEXTROSE 5%-WATER 100 ML IVPB SCH ×2 (13:15→22:13)
[2021-10-17] MEDS ORDERED: INSULIN (NOVOLOG) ASPART 100 UNITS/ML 10ML VIAL ONE (21:53)
[2021-10-18] MEDS: DEXTROSE 5%-0.45% SALINE 1,000 ML IV SCH ×2 (06:56→19:00)
[2021-10-18 08:03] LABS: HEMATOCRIT 30.3 % (32.4-45.2); HEMOGLOBIN 9.7 GM/dL (10.7-15.3); MCH 30.4 pg (25.7-33.7); MEAN CELL VOLUME 94.9 fl (80-96); MEAN PLT VOLUME 8.2 fl (7.5-11.1); PLATELET COUNT 164 10^3/uL (134-434); RBC 3.19 M/mm3 (3.60-5.2); WHITE BLOOD COUNT 5.2 K/mm3 (4.0-10.0)
[2021-10-18 08:29] LABS: CALCIUM 8.3 mg/dL (8.5-10.1)
[2021-10-18 08:33] LABS: CREATININE 3.3 mg/dL (0.55-1.3)
[2021-10-18] MEDS ORDERED: CEFEPIME HCL 1 GM VIAL (RESTRICTED TO ID) ONE ×2 (09:33→21:14)
[2021-10-18] MEDS ORDERED: DEXTROSE 5%-WATER 100 ML IVPB ONE ×2 (09:33→21:14)
[2021-10-18] MEDS: CEFEPIME 1 GM in DEXTROSE 5%-WATER 100 ML IVPB SCH ×2 (09:45→22:58)
[2021-10-18] MEDS: BUDESONIDE/FORMETEROL FUMARATE 160/4.5 mcg INHALER IH SCH ×2 (09:46→22:58)
[2021-10-19 08:58] LABS: CALCIUM 8.1 mg/dL (8.5-10.1)
[2021-10-19 08:59] LABS: ALBUMIN 2.6 g/dl (3.4-5.0); BLOOD UREA NITROGEN 58.7 mg/dL (7-18)
[2021-10-19 09:02] LABS: CREATININE 3.3 mg/dL (0.55-1.3)
[2021-10-19 09:03] LABS: BILIRUBIN,TOTAL 0.4 mg/dL (0.2-1); TOT PROT 6.1 g/dl (6.4-8.2)
[2021-10-19] MEDS ORDERED: DEXTROSE 5%-WATER 100 ML IVPB ONE ×2 (10:01→20:56)
[2021-10-19] MEDS ORDERED: CEFEPIME HCL 1 GM VIAL (RESTRICTED TO ID) ONE ×2 (10:01→20:55)
[2021-10-19] MEDS: CEFEPIME 1 GM in DEXTROSE 5%-WATER 100 ML IVPB SCH ×2 (10:08→22:07)
[2021-10-19] MEDS: DEXTROSE 5%-0.45% SALINE 1,000 ML IV SCH ×3 (10:10→23:24)
[2021-10-19] MEDS: BUDESONIDE/FORMETEROL FUMARATE 160/4.5 mcg INHALER IH SCH ×2 (10:10→22:07)
[2021-10-20] MEDS: DEXTROSE 5%-0.45% SALINE 1,000 ML IV SCH ×2 (05:40→13:12)
[2021-10-20 08:37] LABS: HEMATOCRIT 31.6 % (32.4-45.2); HEMOGLOBIN 10.5 GM/dL (10.7-15.3); MCH 30.9 pg (25.7-33.7); MCHC 33.3 g/dl (32.0-36.0); MEAN CELL VOLUME 92.8 fl (80-96); MEAN PLT VOLUME 8.1 fl (7.5-11.1); PLATELET COUNT 161 10^3/uL (134-434); RDW 14.1 % (11.6-15.6); WHITE BLOOD COUNT 5.2 K/mm3 (4.0-10.0)
[2021-10-20 09:01] LABS: BLOOD UREA NITROGEN 57.9 mg/dL (7-18); CALCIUM 8.3 mg/dL (8.5-10.1)
[2021-10-20 09:04] LABS: CREATININE 3.1 mg/dL (0.55-1.3)
[2021-10-20] MEDS ORDERED: CEFEPIME HCL 1 GM VIAL (RESTRICTED TO ID) ONE ×2 (09:11→21:00)
[2021-10-20] MEDS ORDERED: DEXTROSE 5%-WATER 100 ML IVPB ONE ×2 (09:11→21:00)
[2021-10-20] MEDS: CEFEPIME 1 GM in DEXTROSE 5%-WATER 100 ML IVPB SCH ×2 (09:23→21:14)
[2021-10-20] MEDS: BUDESONIDE/FORMETEROL FUMARATE 160/4.5 mcg INHALER IH SCH ×2 (09:32→21:18)
[2021-10-21] MEDS: DEXTROSE 5%-0.45% SALINE 1,000 ML IV SCH ×2 (01:16→03:30)
[2021-10-21 05:50] VITALS: BP 136/80; PULSE 70; TEMP 99
[2021-10-21] MEDS ORDERED: CEFEPIME HCL 1 GM VIAL (RESTRICTED TO ID) ONE (08:43)
[2021-10-21] MEDS ORDERED: DEXTROSE 5%-WATER 100 ML IVPB ONE (08:43)
[2021-10-21] MEDS: CEFEPIME 1 GM in DEXTROSE 5%-WATER 100 ML IVPB SCH (09:22)
[2021-10-21] MEDS: BUDESONIDE/FORMETEROL FUMARATE 160/4.5 mcg INHALER IH SCH (09:23)
== END 2021-10-21 12:58 | disposition home or self-care (01) | DRG 699 ==
LOC: JER 16:48 → JERBED 21:00 → J7W 10-17 01:05
PROVIDERS: ADMIT Internal Medicine; ATTEND Family Medicine
PROC: 0T25X0Z Change Drainage Device in Kidney, External Approach (ICD-10-PCS; principal; 2021-10-17)
DX: N99.522 Malfunction of incontinent external stoma of urinary tract (principal); N17.9 Acute kidney failure, unspecified; N13.30 Unspecified hydronephrosis; N39.0 Urinary tract infection, site not specified; T83.032A Leakage of nephrostomy catheter, initial encounter; Y83.9 Surgical procedure, unspecified as the cause of abnormal reaction of the patient, or of later complication, without mention of misadventure at the time of the procedure; I12.9 Hypertensive chronic kidney disease with stage 1 through stage 4 chronic kidney disease, or unspecified chronic kidney disease; N18.9 Chronic kidney disease, unspecified; J44.9 Chronic obstructive pulmonary disease, unspecified; R10.9 Unspecified abdominal pain; F17.210 Nicotine dependence, cigarettes, uncomplicated
CPT/HCPCS: 36415; 50435; 71046-TC-FY; 74176-TC; 80048; 80053; 81003; 82962; 83605; 85025; 85027; 87040; 87086; 87186; 90686; 93005; 93010; 99285-25; C1729; C1887; C9803-CS; G0008; U0003; U0005

== ENCOUNTER → 2022-01-06 | Day surgery (SDC) | payer BC | END | disposition home or self-care (01) | LOC: JRADIR 10:28 | PROVIDERS: ATTEND Urology | PROC: 0T25X0Z Change Drainage Device in Kidney, External Approach (ICD-10-PCS; principal; 2022-01-06) | DX: T83.022A Displacement of nephrostomy catheter, initial encounter (principal); Y82.8 Other medical devices associated with adverse incidents; Y92.9 Unspecified place or not applicable | CPT/HCPCS: 50431 ==

== ENCOUNTER 2022-02-11 05:17 | Inpatient (IN) | payer BC ==
[2022-02-11] MEDS ORDERED: SODIUM CHLORIDE 0.9% 500 ML INFUS.BAG IV ONE (09:25)
[2022-02-11 09:44] LABS: BASO % 1.1 % (0-2.0); EOS % 3.4 % (0-4.5); HEMATOCRIT 35.7 % (32.4-45.2); HEMOGLOBIN 11.7 GM/dL (10.7-15.3); LYMPH % 16.9 % (8-40); MCH 30.4 pg (25.7-33.7); MCHC 32.9 g/dl (32.0-36.0); MEAN CELL VOLUME 92.4 fl (80-96); MEAN PLT VOLUME 9.1 fl (7.5-11.1); MONO % 9.3 % (3.8-10.2); NEUT % 69.3 % (42.8-82.8); PLATELET COUNT 183 10^3/uL (134-434); RBC 3.86 M/mm3 (3.60-5.2); RDW 14.4 % (11.6-15.6)
[2022-02-11 10:07] LABS: CALCIUM 8.7 mg/dL (8.5-10.1)
[2022-02-11 10:08] LABS: ALBUMIN 3.4 g/dl (3.4-5.0); BLOOD UREA NITROGEN 54.3 mg/dL (7-18)
[2022-02-11 10:12] LABS: BILIRUBIN,TOTAL 0.3 mg/dL (0.2-1)
[2022-02-11] MEDS ORDERED: ACETAMINOPHEN 1000 MG/100 ML BAG IVPB ONE (10:34)
[2022-02-11 11:42] LABS: EPI CELLS 5 /uL (0-25.1); HYALINE CASTS 1 /uL (0-3.1); URINE APPEARANCE CLOUDY; URINE BACTERIA 4350 /uL (0-1359); URINE BILIRUBIN NEGATIVE (NEGATIVE); URINE COLOR YELLOW; URINE GLUCOSE (UA) NEGATIVE (NEGATIVE); URINE KETONE NEGATIVE (NEGATIVE); URINE LEUK ESTERASE 3+ (NEGATIVE); URINE NITRITE POSITIVE (NEGATIVE); URINE PROTEIN 2+ (NEGATIVE); URINE RBC 127 /uL (0-23.9); URINE UROBILINOGEN 0.2 mg/dL (0.2-1.0); URINE WBC 1228 /uL (0-25.8)
[2022-02-11] MEDS ORDERED: IMIPENEM/CILASTATIN SODIUM 250 MG in SODIUM CHLORIDE 100 ML IVPB ONE (11:49)
[2022-02-11] MEDS ORDERED: ACETAMINOPHEN INJECTION 100 ML IVPB ONE ×2 (12:33→14:30)
[2022-02-11] MEDS ORDERED: morphine CARPU-JECT 4 MG/1 ML DISP.SYRIN IVPUSH ONE (13:03)
[2022-02-11] MEDS ORDERED: ACETAMINOPHEN 325 MG TABLET (FP) PO PRN (13:07)
[2022-02-11] MEDS ORDERED: ONDANSETRON *ODT* 4 MG TABLET ONE ×2 (14:29→22:15)
[2022-02-11] MEDS ORDERED: morphine SO4 SUSTAINED ACTING 15 MG TABLET.SA ONE ×2 (14:30→22:16)
[2022-02-11] MEDS: morphine SO4 SUSTAINED ACTING 30 MG TABLET.SA PO SCH ×2 (14:49→23:56)
[2022-02-11] MEDS: ONDANSETRON *ODT* 4 MG TABLET SL SCH ×2 (14:50→23:58)
[2022-02-11] MEDS: D5-1/2NS+20 MEQ KCL - 20 MEQ/1,000 ML INFUS.BAG IV SCH (18:15)
[2022-02-11] MEDS ORDERED: morphine SULFATE 4 MG/ML VIAL ONE (20:03)
[2022-02-11] MEDS ORDERED: HEPARIN NA (PORCINE) 5,000 UNITS/ML 1ML VIAL ONE (22:16)
[2022-02-11] MEDS: HEPARIN NA (PORCINE) 5,000 UNITS/ML 1ML VIAL SQ SCH (23:56)
[2022-02-12] MEDS: BUDESONIDE/FORMETEROL FUMARATE 160/4.5 mcg INHALER IH SCH ×3 (00:33→21:50)
[2022-02-12 01:14] VITALS: BMI 25.1
[2022-02-12] MEDS ORDERED: oxyCODONE HCL 5 MG TABLET PO ONE (06:30)
[2022-02-12] MEDS: ONDANSETRON *ODT* 4 MG TABLET SL SCH ×3 (06:51→21:43)
[2022-02-12 07:27] LABS: BASO % 0.6 % (0-2.0); EOS % 3.2 % (0-4.5); HEMOGLOBIN 10.9 GM/dL (10.7-15.3); LYMPH % 19.4 % (8-40); MCH 29.8 pg (25.7-33.7); MCHC 31.9 g/dl (32.0-36.0); MEAN CELL VOLUME 93.4 fl (80-96); MEAN PLT VOLUME 8.4 fl (7.5-11.1); MONO % 9.5 % (3.8-10.2); NEUT % 67.3 % (42.8-82.8); PLATELET COUNT 151 10^3/uL (134-434); RBC 3.64 M/mm3 (3.60-5.2); RDW 14.5 % (11.6-15.6)
[2022-02-12 07:43] LABS: BLOOD UREA NITROGEN 50.3 mg/dL (7-18); CALCIUM 8.6 mg/dL (8.5-10.1); MAGNESIUM 2.2 mg/dL (1.8-2.4)
[2022-02-12 07:44] LABS: ALBUMIN 3.1 g/dl (3.4-5.0)
[2022-02-12 07:48] LABS: BILIRUBIN,TOTAL 0.2 mg/dL (0.2-1); TOT PROT 6.6 g/dl (6.4-8.2)
[2022-02-12] MEDS: D5-1/2NS+20 MEQ KCL - 20 MEQ/1,000 ML INFUS.BAG IV SCH ×4 (08:27→21:43)
[2022-02-12] MEDS: morphine SO4 SUSTAINED ACTING 30 MG TABLET.SA PO SCH ×2 (09:37→21:44)
[2022-02-12] MEDS: HEPARIN NA (PORCINE) 5,000 UNITS/ML 1ML VIAL SQ SCH ×2 (09:37→21:45)
[2022-02-12] MEDS: CEFTAZIDIME PENTAHYDRATE 1 GM in DEXTROSE 5%-WATER - 50 ML IVPB SCH ×2 (13:13→21:42)
[2022-02-12] MEDS: diazePAM 2 MG TABLET PO PRN (13:13)
[2022-02-12] MEDS: OXYMORPHONE HCL PO SCH (16:11)
[2022-02-13] MEDS: diazePAM 2 MG TABLET PO PRN (01:57)
[2022-02-13] MEDS: ONDANSETRON *ODT* 4 MG TABLET SL SCH ×2 (06:06→14:06)
[2022-02-13] MEDS: HEPARIN NA (PORCINE) 5,000 UNITS/ML 1ML VIAL SQ SCH (09:32)
[2022-02-13] MEDS ORDERED: SODIUM CHLORIDE 500 ML IV ONE (10:40)
[2022-02-13] MEDS: morphine SO4 SUSTAINED ACTING 30 MG TABLET.SA PO SCH (12:11)
[2022-02-13] MEDS: CEFTAZIDIME PENTAHYDRATE 1 GM in DEXTROSE 5%-WATER - 50 ML IVPB SCH (12:12)
[2022-02-13] MEDS: BUDESONIDE/FORMETEROL FUMARATE 160/4.5 mcg INHALER IH SCH (12:19)
[2022-02-13] MEDS: D5-1/2NS+20 MEQ KCL - 20 MEQ/1,000 ML INFUS.BAG IV SCH (13:58)
[2022-02-13 15:09] VITALS: BP 150/91; PULSE 90; RESP 18; TEMP 99.5
== END 2022-02-13 17:15 | disposition home or self-care (01) | DRG 699 ==
LOC: JER 05:17 → JERBED 12:53 → J7W 23:41
PROVIDERS: ADMIT Family Medicine; ATTEND Family Medicine
PROC: 0T25X0Z Change Drainage Device in Kidney, External Approach (ICD-10-PCS; principal; 2022-02-13)
PROC: 0T25X0Z Change Drainage Device in Kidney, External Approach (ICD-10-PCS; 2022-02-13)
PROC: BT03ZZZ Plain Radiography of Bilateral Kidneys (ICD-10-PCS; 2022-02-13)
DX: T83.89XA Other specified complication of genitourinary prosthetic devices, implants and grafts, initial encounter (principal); N13.6 Pyonephrosis; N17.9 Acute kidney failure, unspecified; J44.9 Chronic obstructive pulmonary disease, unspecified; J45.909 Unspecified asthma, uncomplicated; H91.93 Unspecified hearing loss, bilateral; D18.09 Hemangioma of other sites; R31.0 Gross hematuria; K80.80 Other cholelithiasis without obstruction; F41.8 Other specified anxiety disorders; M54.59 Other low back pain; I12.9 Hypertensive chronic kidney disease with stage 1 through stage 4 chronic kidney disease, or unspecified chronic kidney disease; N18.9 Chronic kidney disease, unspecified; B96.1 Klebsiella pneumoniae [K. pneumoniae] as the cause of diseases classified elsewhere; Z85.3 Personal history of malignant neoplasm of breast; Z85.42 Personal history of malignant neoplasm of other parts of uterus; Y83.8 Other surgical procedures as the cause of abnormal reaction of the patient, or of later complication, without mention of misadventure at the time of the procedure; Z88.0 Allergy status to penicillin
CPT/HCPCS: 36415; 50435; 74176-TC; 80053; 81003; 82962; 83735; 84443; 85025; 87040; 87086; 87186; 93005; 93010; 99285-25; C9803-CS; J1644; U0003; U0005

== ENCOUNTER 2022-02-15 03:59 | Emergency (ER) | payer BC ==
[2022-02-15 04:30] VITALS: BP 178/77; PULSE 95; RESP 17; TEMP 98.4; BMI 24.0
== END 2022-02-15 06:58 | disposition home or self-care (01) ==
LOC: JER 03:59
DX: T83.022A Displacement of nephrostomy catheter, initial encounter (principal)
CPT/HCPCS: 99283-25

== ENCOUNTER 2022-06-05 14:40 | Inpatient (IN) | payer BC ==
[2022-06-05 17:02] VITALS: BMI 23.1
[2022-06-05] MEDS ORDERED: HYDROmorphone HCl 2 MG/ML VIAL ONE (18:49)
[2022-06-05 18:52] LABS: BASO % 0.4 % (0-2.0); EOS % 0.1 % (0-4.5); HEMATOCRIT 45.4 % (32.4-45.2); HEMOGLOBIN 14.6 GM/dL (10.7-15.3); LYMPH % 4.2 % (8-40); MCH 29.7 pg (25.7-33.7); MCHC 32.1 g/dl (32.0-36.0); MEAN CELL VOLUME 92.5 fl (80-96); MEAN PLT VOLUME 9.3 fl (7.5-11.1); MONO % 3.4 % (3.8-10.2); NEUT % 91.9 % (42.8-82.8); PLATELET COUNT 257 10^3/uL (134-434); RBC 4.91 M/mm3 (3.60-5.2); RDW 14.5 % (11.6-15.6); WHITE BLOOD COUNT 10.8 K/mm3 (4.0-10.0)
[2022-06-05] MEDS ORDERED: HYDROmorphone HCL 2 MG TABLET PO ONE (18:52)
[2022-06-05] MEDS ORDERED: HYDROmorphone HCL CARPU-JECT 2 MG/1 ML DISP.SYRIN IVPUSH ONE (19:00)
[2022-06-05 19:15] LABS: CHLORIDE 104 mmol/L (98-107); SODIUM 137 mmol/L (136-145)
[2022-06-05 19:17] LABS: CALCIUM 9.2 mg/dL (8.5-10.1); GLUCOSE,RANDOM 137 mg/dL (74-106)
[2022-06-05 19:18] LABS: ALBUMIN 3.4 g/dl (3.4-5.0); CO2 25 mmol/L (21-32); LIPASE 142 U/L (73-393); MAGNESIUM 2.1 mg/dL (1.8-2.4)
[2022-06-05 19:20] LABS: SGPT/ALT 21 U/L (13-61)
[2022-06-05 19:21] LABS: SGOT/AST 28 U/L (15-37)
[2022-06-05 19:22] LABS: BILIRUBIN,TOTAL 0.4 mg/dL (0.2-1); TOT PROT 7.2 g/dl (6.4-8.2)
[2022-06-05 19:23] LABS: ALK PHOS 104 U/L (45-117)
[2022-06-05 19:37] LABS: ANISOCYTOSIS 1+; MACROCYTOSIS 0; PLATELET ESTIMATE NORMAL
[2022-06-05 19:45] LABS: ANION GAP 8 MMOL/L (8-16)
[2022-06-05] MEDS ORDERED: ACETAMINOPHEN 1000 MG/100 ML BAG IVPB ONE (20:12)
[2022-06-05] MEDS ORDERED: SODIUM CHLORIDE 0.9% 500 ML INFUS.BAG IV ONE (20:12)
[2022-06-05] MEDS ORDERED: ONDANSETRON 4 MG/2 ML VIAL IVPUSH ONE (20:12)
[2022-06-05] MEDS ORDERED: ONDANSETRON 4 MG/2 ML VIAL ONE (20:24)
[2022-06-05] MEDS ORDERED: ACETAMINOPHEN INJECTION 100 ML IVPB ONE (20:24)
[2022-06-05] MEDS ORDERED: morphine CARPU-JECT 4 MG/1 ML DISP.SYRIN IVPUSH ONE (21:13)
[2022-06-05 21:25] LABS: EPI CELLS 8 /uL (0-25.1); HYALINE CASTS 1 /uL (0-3.1); PH,URINE 6.5 (5.0-8.0); URINE APPEARANCE TURBID; URINE BACTERIA >9,000 /uL (0-1359); URINE BILIRUBIN NEGATIVE (NEGATIVE); URINE COLOR YELLOW; URINE GLUCOSE (UA) NEGATIVE (NEGATIVE); URINE KETONE NEGATIVE (NEGATIVE); URINE LEUK ESTERASE 3+ (NEGATIVE); URINE NITRITE NEGATIVE (NEGATIVE); URINE PROTEIN 3+ (NEGATIVE); URINE RBC 352 /uL (0-23.9); URINE UROBILINOGEN 0.2 mg/dL (0.2-1.0); URINE WBC 2461 /uL (0-25.8)
[2022-06-05 21:28] LABS: EPI CELLS >36 /uL (0-25.1); HYALINE CASTS 16 /uL (0-3.1); PH,URINE 6.5 (5.0-8.0); URINE APPEARANCE TURBID; URINE BACTERIA >9,000 /uL (0-1359); URINE BILIRUBIN NEGATIVE (NEGATIVE); URINE COLOR YELLOW; URINE GLUCOSE (UA) NEGATIVE (NEGATIVE); URINE KETONE NEGATIVE (NEGATIVE); URINE LEUK ESTERASE 3+ (NEGATIVE); URINE NITRITE NEGATIVE (NEGATIVE); URINE PROTEIN 3+ (NEGATIVE); URINE UROBILINOGEN 0.2 mg/dL (0.2-1.0); URINE WBC 8774 /uL (0-25.8)
[2022-06-05] MEDS ORDERED: cefTAZidime PENTAHYDRATE 1 GM/50ML PRE-DOCKED (RESTRICTED TO ID) IVPB ONE (21:48)
[2022-06-05 22:03] LABS: URINE RBC 305.5 /uL (0-23.9); YEAST NONE SEEN (NEGATIVE)
[2022-06-05] MEDS ORDERED: cefTAZidime PENTAHYDRATE 1 GM VIAL (RESTRICTED TO ID) ONE (22:20)
[2022-06-05] MEDS ORDERED: CALCIUM GLUCONATE 10% - 1,000 MG/10 ML VIAL IVPUSH ONE (22:34)
[2022-06-05] MEDS ORDERED: INSULIN REGULAR HUMAN 100 UNITS/ML *VIAL IVPUSH ONE (22:34)
[2022-06-05] MEDS ORDERED: ALBUTEROL SO4 HFA INHALER IH ONE (22:34)
[2022-06-05] MEDS ORDERED: DEXTROSE 50%-WATER - 25 GM/50 ML VIAL IVPUSH ONE (22:34)
[2022-06-05] MEDS ORDERED: SODIUM CHLORIDE 1,000 ML IV SCH (23:00)
[2022-06-05] MEDS ORDERED: DEXTROSE 50%-WATER 25 GM/50 ML DISP.SYRIN ONE (23:12)
[2022-06-05] MEDS ORDERED: CALCIUM GLUCONATE 10% - 1,000 MG/10 ML VIAL ONE (23:13)
[2022-06-05] MEDS ORDERED: ALBUTEROL SO4 0.083% IH SOL 2.5 MG/3 ML VIAL.NEB. NEB ONE (23:13)
[2022-06-05] MEDS ORDERED: ALBUTEROL SO4 0.083% IH SOL 2.5 MG/3 ML VIAL.NEB. NEB PRN (23:21)
[2022-06-05] MEDS ORDERED: CEFEPIME 2 GM in DEXTROSE 5%-WATER 100 ML IVPB SCH (23:45)
[2022-06-06] MEDS ORDERED: CEFEPIME 2 GM/100 ML BAG IVPB ONE ×2 (01:05→11:30)
[2022-06-06] MEDS: CEFEPIME 2 GM in DEXTROSE 5%-WATER 100 ML IVPB SCH ×2 (01:13→12:40)
[2022-06-06] MEDS ORDERED: HYDROmorphone HCL CARPU-JECT 2 MG/1 ML DISP.SYRIN IM PRN (08:34)
[2022-06-06 08:57] LABS: BASO % 0.7 % (0-2.0); EOS % 1.2 % (0-4.5); HEMATOCRIT 40.1 % (32.4-45.2); HEMOGLOBIN 12.9 GM/dL (10.7-15.3); LYMPH % 10.2 % (8-40); MCH 29.9 pg (25.7-33.7); MEAN CELL VOLUME 93.4 fl (80-96); MEAN PLT VOLUME 8.6 fl (7.5-11.1); MONO % 10.5 % (3.8-10.2); NEUT % 77.4 % (42.8-82.8); PLATELET COUNT 214 10^3/uL (134-434); RBC 4.29 M/mm3 (3.60-5.2); RDW 14.4 % (11.6-15.6); WHITE BLOOD COUNT 7.8 K/mm3 (4.0-10.0)
[2022-06-06] MEDS ORDERED: HYDROmorphone HCl 2 MG/ML VIAL ONE (09:09)
[2022-06-06 09:15] LABS: CALCIUM 8.5 mg/dL (8.5-10.1)
[2022-06-06 09:16] LABS: BLOOD UREA NITROGEN 68.7 mg/dL (7-18); MAGNESIUM 2.1 mg/dL (1.8-2.4)
[2022-06-06 09:19] LABS: CREATININE 3.5 mg/dL (0.55-1.3); PHOSPHOROUS 5.6 mg/dL (2.5-4.9)
[2022-06-06 09:20] LABS: BILIRUBIN,TOTAL 0.4 mg/dL (0.2-1); TOT PROT 6.2 g/dl (6.4-8.2)
[2022-06-06] MEDS ORDERED: guaiFENesin 200 MG/10 ML 10 ML UNIT-DOSE CUPS PO PRN (12:55)
[2022-06-06] MEDS ORDERED: morphine CARPU-JECT 4 MG/1 ML DISP.SYRIN IVPUSH ONE (14:19)
[2022-06-06] MEDS ORDERED: morphine SULFATE 4 MG/ML VIAL IVPUSH ONE (14:30)
[2022-06-06] MEDS ORDERED: ACETAMINOPHEN 1000 MG/100 ML BAG IVPB ONE (21:26)
[2022-06-06] MEDS: POLYETHYLENE GLYCOL (HEALTHYLAX) 3350 17 GM PACKET PO SCH (22:11)
[2022-06-06] MEDS: SODIUM CHLORIDE 0.45% 1,000 ML IV SCH (22:12)
[2022-06-06] MEDS ORDERED: SODIUM ZIRCONIUM CYCLOSILICATE (LOKELMA) 5 GM PACKET PO ONE (22:36)
[2022-06-06] MEDS: CEFEPIME 1 GM in DEXTROSE 5%-WATER 100 ML IVPB SCH (22:48)
[2022-06-06] MEDS ORDERED: HYDROmorphone HCL CARPU-JECT 2 MG/1 ML DISP.SYRIN IVPUSH PRN (22:59)
[2022-06-06] MEDS: HYDROmorphone HCl 2 MG/ML VIAL IVPB PRN (23:10)
[2022-06-07] MEDS: HYDROmorphone HCl 2 MG/ML VIAL IVPB PRN ×4 (05:00→22:30)
[2022-06-07] MEDS: POLYETHYLENE GLYCOL (HEALTHYLAX) 3350 17 GM PACKET PO SCH ×3 (05:13→21:46)
[2022-06-07 10:07] LABS: BASO % 0.7 % (0-2.0); EOS % 2.8 % (0-4.5); HEMATOCRIT 39.6 % (32.4-45.2); HEMOGLOBIN 12.6 GM/dL (10.7-15.3); LYMPH % 12.7 % (8-40); MCH 29.6 pg (25.7-33.7); MCHC 31.8 g/dl (32.0-36.0); MEAN CELL VOLUME 93.2 fl (80-96); MEAN PLT VOLUME 8.4 fl (7.5-11.1); MONO % 8.2 % (3.8-10.2); NEUT % 75.6 % (42.8-82.8); PLATELET COUNT 175 10^3/uL (134-434); RBC 4.25 M/mm3 (3.60-5.2); RDW 14.3 % (11.6-15.6); WHITE BLOOD COUNT 5.8 K/mm3 (4.0-10.0)
[2022-06-07 10:34] LABS: CALCIUM 8.8 mg/dL (8.5-10.1)
[2022-06-07 10:35] LABS: ALBUMIN 2.8 g/dl (3.4-5.0); BLOOD UREA NITROGEN 61.5 mg/dL (7-18)
[2022-06-07 10:38] LABS: BILIRUBIN,DIRECT 0.1 mg/dL (0.0-0.2); CREATININE 3.2 mg/dL (0.55-1.3)
[2022-06-07 10:39] LABS: BILIRUBIN,TOTAL 0.4 mg/dL (0.2-1)
[2022-06-07 10:40] LABS: TOT PROT 5.9 g/dl (6.4-8.2)
[2022-06-07] MEDS: CEFEPIME 1 GM in DEXTROSE 5%-WATER 100 ML IVPB SCH ×2 (11:19→23:52)
[2022-06-07] MEDS ORDERED: SODIUM ZIRCONIUM CYCLOSILICATE (LOKELMA) 5 GM PACKET PO SCH ×2 (12:30→16:00)
[2022-06-07] MEDS ORDERED: Methylnaltrexone Bromide 12 MG/0.6 ML KIT SQ SCH ×2 (15:15)
[2022-06-07] MEDS: Methylnaltrexone Bromide 12 MG/0.6 ML KIT SQ SCH (17:14)
[2022-06-07] MEDS: SODIUM CHLORIDE 0.45% 1,000 ML IV SCH (17:15)
[2022-06-07] MEDS ORDERED: ONDANSETRON *ODT* 4 MG TABLET SL PRN (19:05)
[2022-06-08] MEDS: HYDROmorphone HCl 2 MG/ML VIAL IVPB PRN ×5 (02:30→22:48)
[2022-06-08] MEDS: SODIUM CHLORIDE 0.45% 1,000 ML IV SCH ×3 (08:59→18:46)
[2022-06-08] MEDS: POLYETHYLENE GLYCOL (HEALTHYLAX) 3350 17 GM PACKET PO SCH ×4 (10:15→22:00)
[2022-06-08] MEDS: CEFEPIME 1 GM in DEXTROSE 5%-WATER 100 ML IVPB SCH ×2 (10:34→22:01)
[2022-06-08 14:34] LABS: CALCIUM 8.3 mg/dL (8.5-10.1)
[2022-06-08 14:35] LABS: ALBUMIN 2.6 g/dl (3.4-5.0); BLOOD UREA NITROGEN 52.8 mg/dL (7-18)
[2022-06-08 14:37] LABS: BILIRUBIN,DIRECT 0.1 mg/dL (0.0-0.2)
[2022-06-08 14:39] LABS: BILIRUBIN,TOTAL 0.8 mg/dL (0.2-1); TOT PROT 5.8 g/dl (6.4-8.2)
[2022-06-08 14:41] LABS: CREATININE 2.9 mg/dL (0.55-1.3)
[2022-06-09] MEDS: HYDROmorphone HCl 2 MG/ML VIAL IVPB PRN ×5 (03:03→20:27)
[2022-06-09] MEDS: POLYETHYLENE GLYCOL (HEALTHYLAX) 3350 17 GM PACKET PO SCH ×3 (06:37→21:47)
[2022-06-09] MEDS: CEFEPIME 1 GM in DEXTROSE 5%-WATER 100 ML IVPB SCH ×2 (10:47→22:04)
[2022-06-09 11:27] LABS: ALBUMIN 2.6 g/dl (3.4-5.0)
[2022-06-09 11:29] LABS: BILIRUBIN,TOTAL 0.8 mg/dL (0.2-1)
[2022-06-09 11:30] LABS: TOT PROT 5.8 g/dl (6.4-8.2)
[2022-06-09 11:31] LABS: BILIRUBIN,DIRECT 0.2 mg/dL (0.0-0.2)
[2022-06-09] MEDS: SODIUM CHLORIDE 0.45% 1,000 ML IV SCH (15:06)
[2022-06-09] MEDS: Methylnaltrexone Bromide 12 MG/0.6 ML KIT SQ SCH (17:31)
[2022-06-10] MEDS: HYDROmorphone HCl 2 MG/ML VIAL IVPB PRN ×6 (00:10→20:51)
[2022-06-10] MEDS: POLYETHYLENE GLYCOL (HEALTHYLAX) 3350 17 GM PACKET PO SCH ×3 (05:07→21:14)
[2022-06-10] MEDS: CEFEPIME 1 GM in DEXTROSE 5%-WATER 100 ML IVPB SCH ×2 (11:04→22:50)
[2022-06-10] MEDS: SODIUM CHLORIDE 0.45% 1,000 ML IV SCH ×3 (11:05→16:58)
[2022-06-10 11:36] LABS: ALBUMIN 2.7 g/dl (3.4-5.0)
[2022-06-10 11:37] LABS: CALCIUM 8.6 mg/dL (8.5-10.1)
[2022-06-10 11:39] LABS: CREATININE 2.5 mg/dL (0.55-1.3)
[2022-06-10 11:40] LABS: TOT PROT 5.8 g/dl (6.4-8.2)
[2022-06-10 11:41] LABS: BILIRUBIN,TOTAL 0.4 mg/dL (0.2-1)
[2022-06-10] MEDS: ONDANSETRON 4 MG/2 ML VIAL IVPB PRN (23:44)
[2022-06-11] MEDS: HYDROmorphone HCl 2 MG/ML VIAL IVPB PRN ×5 (03:54→21:49)
[2022-06-11] MEDS: POLYETHYLENE GLYCOL (HEALTHYLAX) 3350 17 GM PACKET PO SCH ×3 (05:08→21:50)
[2022-06-11] MEDS: ONDANSETRON 4 MG/2 ML VIAL IVPB PRN (08:00)
[2022-06-11] MEDS: CEFEPIME 1 GM in DEXTROSE 5%-WATER 100 ML IVPB SCH ×2 (10:51→22:06)
[2022-06-11] MEDS: SODIUM CHLORIDE 0.45% 1,000 ML IV SCH (16:07)
[2022-06-11] MEDS: Methylnaltrexone Bromide 12 MG/0.6 ML KIT SQ SCH (17:18)
[2022-06-12] MEDS: HYDROmorphone HCl 2 MG/ML VIAL IVPB PRN ×2 (02:39→06:56)
[2022-06-12] MEDS: POLYETHYLENE GLYCOL (HEALTHYLAX) 3350 17 GM PACKET PO SCH ×3 (05:27→22:13)
[2022-06-12] MEDS ORDERED: diazePAM 2 MG TABLET PO PRN (07:11)
[2022-06-12] MEDS: CEFEPIME 1 GM in DEXTROSE 5%-WATER 100 ML IVPB SCH (12:38)
[2022-06-12] MEDS: morphine SO4 SUSTAINED ACTING 30 MG TABLET.SA PO SCH ×2 (13:25→22:13)
[2022-06-12 13:51] LABS: BASO % 0.5 % (0-2.0); EOS % 1.4 % (0-4.5); HEMATOCRIT 37.6 % (32.4-45.2); HEMOGLOBIN 12.1 GM/dL (10.7-15.3); LYMPH % 9.6 % (8-40); MCH 29.6 pg (25.7-33.7); MCHC 32.1 g/dl (32.0-36.0); MEAN CELL VOLUME 92.3 fl (80-96); MEAN PLT VOLUME 9.1 fl (7.5-11.1); MONO % 6.7 % (3.8-10.2); NEUT % 81.8 % (42.8-82.8); PLATELET COUNT 160 10^3/uL (134-434); RBC 4.07 M/mm3 (3.60-5.2); RDW 13.8 % (11.6-15.6); WHITE BLOOD COUNT 7.2 K/mm3 (4.0-10.0)
[2022-06-12 14:06] LABS: ALBUMIN 2.8 g/dl (3.4-5.0); BLOOD UREA NITROGEN 42.6 mg/dL (7-18); CALCIUM 8.8 mg/dL (8.5-10.1)
[2022-06-12 14:09] LABS: CREATININE 2.9 mg/dL (0.55-1.3)
[2022-06-12 14:11] LABS: BILIRUBIN,TOTAL 0.2 mg/dL (0.2-1); TOT PROT 6.3 g/dl (6.4-8.2)
[2022-06-13] MEDS: SODIUM CHLORIDE 0.45% 1,000 ML IV SCH (05:38)
[2022-06-13] MEDS: POLYETHYLENE GLYCOL (HEALTHYLAX) 3350 17 GM PACKET PO SCH (06:08)
[2022-06-13] MEDS: morphine SO4 SUSTAINED ACTING 30 MG TABLET.SA PO SCH (09:09)
[2022-06-13 12:14] VITALS: BP 154/95; PULSE 89; RESP 24; TEMP 98.9
== END 2022-06-13 11:47 | disposition home or self-care (01) | DRG 690 ==
LOC: JER 14:40 → JERBED 21:50 → J6W 06-06 13:35 → J4W 06-11 05:09
PROVIDERS: ADMIT Internal Medicine; ATTEND Family Medicine
DX: N39.0 Urinary tract infection, site not specified (principal); N18.9 Chronic kidney disease, unspecified; J44.9 Chronic obstructive pulmonary disease, unspecified; N10 Acute pyelonephritis; H91.90 Unspecified hearing loss, unspecified ear; I12.9 Hypertensive chronic kidney disease with stage 1 through stage 4 chronic kidney disease, or unspecified chronic kidney disease; F41.8 Other specified anxiety disorders; M54.50 Low back pain, unspecified; E87.5 Hyperkalemia; B96.5 Pseudomonas (aeruginosa) (mallei) (pseudomallei) as the cause of diseases classified elsewhere; B96.1 Klebsiella pneumoniae [K. pneumoniae] as the cause of diseases classified elsewhere; N28.1 Cyst of kidney, acquired; N13.8 Other obstructive and reflux uropathy; K43.9 Ventral hernia without obstruction or gangrene; R93.2 Abnormal findings on diagnostic imaging of liver and biliary tract; K83.4 Spasm of sphincter of Oddi; R09.02 Hypoxemia; K59.03 Drug induced constipation; T40.695A Adverse effect of other narcotics, initial encounter; K80.20 Calculus of gallbladder without cholecystitis without obstruction; Z85.3 Personal history of malignant neoplasm of breast; Z85.42 Personal history of malignant neoplasm of other parts of uterus; Z88.0 Allergy status to penicillin
CPT/HCPCS: 0241U-QW; 36415; 71045-TC-FY; 74018-TC-FY; 74176-TC; 76705-TC; 76856-TC; 78226-TC; 80053; 80076; 81003; 82150; 83605; 83690; 83735; 84100; 84132; 84484; 85025; 86140; 87040; 87086; 87186; 93005; 93010; 99285-25; A9537; Q0162

== ENCOUNTER → 2022-06-16 | Day surgery (SDC) | payer BC | END | disposition home or self-care (01) | LOC: JRADIR 08:25 | PROVIDERS: ATTEND Urology | PROC: 0T25X0Z Change Drainage Device in Kidney, External Approach (ICD-10-PCS; principal; 2022-06-16) | DX: Z46.6 Encounter for fitting and adjustment of urinary device (principal) | CPT/HCPCS: 50435; C1729; C1769; C1887 ==

== ENCOUNTER 2022-08-08 13:54 | Observation (INO) | payer BC ==
[2022-08-08 14:02] VITALS: BMI 24.0
[2022-08-08 17:42] LABS: EOS % 2.2 % (0-4.5); HEMATOCRIT 35.1 % (32.4-45.2); HEMOGLOBIN 11.5 GM/dL (10.7-15.3); LYMPH % 20.8 % (8-40); MCHC 32.8 g/dl (32.0-36.0); MEAN CELL VOLUME 94.3 fl (80-96); MEAN PLT VOLUME 8.5 fl (7.5-11.1); MONO % 8.9 % (3.8-10.2); NEUT % 67.1 % (42.8-82.8); PLATELET COUNT 158 10^3/uL (134-434); RBC 3.72 M/mm3 (3.60-5.2); RDW 15.2 % (11.6-15.6); WHITE BLOOD COUNT 5.2 K/mm3 (4.0-10.0)
[2022-08-08 17:49] LABS: INR 0.93 (0.83-1.09); PROTHROMBIN TIME (PATIENT) 10.7 SEC (9.7-13.0)
[2022-08-08 17:51] LABS: ACTIVATED PTT 30.8 SECONDS (25.2-36.5)
[2022-08-08 18:10] LABS: CALCIUM 8.5 mg/dL (8.5-10.1)
[2022-08-08 18:11] LABS: ALBUMIN 3.1 g/dl (3.4-5.0); BLOOD UREA NITROGEN 71.9 mg/dL (7-18)
[2022-08-08 18:15] LABS: TOT PROT 6.3 g/dl (6.4-8.2)
[2022-08-08 18:16] LABS: BILIRUBIN,TOTAL 0.2 mg/dL (0.2-1)
[2022-08-09] MEDS ORDERED: DEXTROSE 5%-0.45% SALINE 1,000 ML IV SCH
[2022-08-09] MEDS ORDERED: morphine SO4 SUSTAINED ACTING 30 MG TABLET.SA PO SCH (01:33)
[2022-08-09] MEDS ORDERED: morphine SO4 SUSTAINED ACTING 15 MG TABLET.SA ONE (01:39)
[2022-08-09] MEDS ORDERED: morphine SO4 SUSTAINED ACTING 15 MG TABLET.SA PO SCH (02:01)
[2022-08-09] MEDS: DOCUSATE SODIUM 100 MG CAPSULE (FP) PO SCH ×2 (05:19→13:24)
[2022-08-09] MEDS ORDERED: oxyCODONE HCL 5 MG TABLET PO PRN (07:00)
[2022-08-09 09:03] LABS: EOS % 2.7 % (0-4.5); HEMATOCRIT 33.4 % (32.4-45.2); HEMOGLOBIN 10.9 GM/dL (10.7-15.3); LYMPH % 19.4 % (8-40); MCHC 32.7 g/dl (32.0-36.0); MEAN CELL VOLUME 94.8 fl (80-96); MEAN PLT VOLUME 8.9 fl (7.5-11.1); MONO % 9.5 % (3.8-10.2); NEUT % 67.4 % (42.8-82.8); PLATELET COUNT 158 10^3/uL (134-434); RBC 3.52 M/mm3 (3.60-5.2); WHITE BLOOD COUNT 4.9 K/mm3 (4.0-10.0)
[2022-08-09 09:28] LABS: CALCIUM 8.4 mg/dL (8.5-10.1)
[2022-08-09 09:29] LABS: BLOOD UREA NITROGEN 64.2 mg/dL (7-18)
[2022-08-09] MEDS ORDERED: FENTANYL CITRATE/PF 50 MCG/ML VIAL ONE (10:29)
[2022-08-09] MEDS ORDERED: SODIUM CHLORIDE 500 ML IV SCH (10:31)
[2022-08-09] MEDS ORDERED: diazePAM 2 MG TABLET PO SCH (14:00)
[2022-08-09 14:37] VITALS: BP 136/74; PULSE 87; RESP 18; TEMP 99
[2022-08-09] MEDS ORDERED: BUDESONIDE/FORMETEROL FUMARATE 160/4.5 mcg INHALER IH SCH (22:00)
== END 2022-08-09 14:59 | disposition home or self-care (01) ==
LOC: JER 13:54 → JERBED 19:30 → J7W 08-09 03:26
PROVIDERS: ADMIT Internal Medicine; ATTEND Family Medicine
PROC: 3E033GC Introduction of Other Therapeutic Substance into Peripheral Vein, Percutaneous Approach (ICD-10-PCS; principal; 2022-08-08)
PROC: 3E033NZ Introduction of Analgesics, Hypnotics, Sedatives into Peripheral Vein, Percutaneous Approach (ICD-10-PCS; 2022-08-08)
PROC: 3E0337Z Introduction of Electrolytic and Water Balance Substance into Peripheral Vein, Percutaneous Approach (ICD-10-PCS; 2022-08-08)
PROC: 0T25X0Z Change Drainage Device in Kidney, External Approach (ICD-10-PCS; 2022-08-08)
DX: T83.032A Leakage of nephrostomy catheter, initial encounter (principal); I13.10 Hypertensive heart and chronic kidney disease without heart failure, with stage 1 through stage 4 chronic kidney disease, or unspecified chronic kidney disease; N18.9 Chronic kidney disease, unspecified; N20.0 Calculus of kidney; Z87.440 Personal history of urinary (tract) infections; N13.30 Unspecified hydronephrosis; Z85.3 Personal history of malignant neoplasm of breast; Z88.0 Allergy status to penicillin; Z85.42 Personal history of malignant neoplasm of other parts of uterus; Y99.8 Other external cause status
CPT/HCPCS: 0241U-QW; 36415; 50435; 80048; 80053; 85025; 85610; 85730; 86850; 86900; 86901; 93005; 93010; 99285-25; G0378

== ENCOUNTER 2022-09-17 23:50 | Emergency (ER) | payer BC ==
[2022-09-17 23:57] VITALS: BMI 24.0
[2022-09-18] MEDS ORDERED: ACETAMINOPHEN 1000 MG/100 ML BAG IVPB ONE (02:49)
[2022-09-18] MEDS ORDERED: ACETAMINOPHEN INJECTION 100 ML IVPB ONE (02:52)
[2022-09-18 03:40] LABS: BASO % 0.8 % (0-2.0); EOS % 1.7 % (0-4.5); HEMATOCRIT 35.6 % (32.4-45.2); HEMOGLOBIN 11.5 GM/dL (10.7-15.3); MCH 30.3 pg (25.7-33.7); MCHC 32.3 g/dl (32.0-36.0); MEAN CELL VOLUME 93.9 fl (80-96); MEAN PLT VOLUME 8.4 fl (7.5-11.1); NEUT % 71.5 % (42.8-82.8); PLATELET COUNT 161 10^3/uL (134-434); RBC 3.79 M/mm3 (3.60-5.2); RDW 14.6 % (11.6-15.6); WHITE BLOOD COUNT 6.6 K/mm3 (4.0-10.0)
[2022-09-18 03:44] LABS: EPI CELLS 10 /uL (0-25.1); HYALINE CASTS 2 /uL (0-3.1); URINE APPEARANCE TURBID; URINE BACTERIA 3192 /uL (0-1359); URINE BILIRUBIN NEGATIVE (NEGATIVE); URINE COLOR YELLOW; URINE GLUCOSE (UA) NEGATIVE (NEGATIVE); URINE KETONE NEGATIVE (NEGATIVE); URINE LEUK ESTERASE 3+ (NEGATIVE); URINE NITRITE POSITIVE (NEGATIVE); URINE PROTEIN 2+ (NEGATIVE); URINE RBC 459 /uL (0-23.9); URINE UROBILINOGEN 0.2 mg/dL (0.2-1.0); URINE WBC 2665 /uL (0-25.8)
[2022-09-18 04:12] LABS: INR 1.08 (0.83-1.09); PROTHROMBIN TIME (PATIENT) 12.5 SEC (9.7-13.0)
[2022-09-18 04:13] LABS: ALBUMIN 3.4 g/dl (3.4-5.0); CALCIUM 8.7 mg/dL (8.5-10.1)
[2022-09-18 04:14] LABS: BLOOD UREA NITROGEN 68.2 mg/dL (7-18)
[2022-09-18 04:15] LABS: ACTIVATED PTT 30.4 SECONDS (25.2-36.5)
[2022-09-18 04:16] LABS: CREATININE 3.5 mg/dL (0.55-1.3)
[2022-09-18 04:18] LABS: BILIRUBIN,TOTAL 0.4 mg/dL (0.2-1); TOT PROT 6.7 g/dl (6.4-8.2)
[2022-09-18] MEDS ORDERED: morphine CARPU-JECT 4 MG/1 ML DISP.SYRIN IVPUSH ONE (04:29)
[2022-09-18] MEDS ORDERED: VANCOMYCIN/WATER FOR INJ (PEG) 1,000 MG/200 ML BAG IVPB ONE (10:30)
[2022-09-18 14:16] VITALS: BP 127/81; PULSE 90; RESP 18; TEMP 97.7
== END 2022-09-18 14:19 | disposition home or self-care (01) ==
LOC: JER 23:50
PROC: 3E03329 Introduction of Other Anti-infective into Peripheral Vein, Percutaneous Approach (ICD-10-PCS; principal; 2022-09-17)
PROC: 3E03329 Introduction of Other Anti-infective into Peripheral Vein, Percutaneous Approach (ICD-10-PCS; 2022-09-17)
PROC: 3E03329 Introduction of Other Anti-infective into Peripheral Vein, Percutaneous Approach (ICD-10-PCS; 2022-09-17)
PROC: 3E033NZ Introduction of Analgesics, Hypnotics, Sedatives into Peripheral Vein, Percutaneous Approach (ICD-10-PCS; 2022-09-17)
PROC: 3E033NZ Introduction of Analgesics, Hypnotics, Sedatives into Peripheral Vein, Percutaneous Approach (ICD-10-PCS; 2022-09-17)
DX: T83.022A Displacement of nephrostomy catheter, initial encounter (principal); N39.0 Urinary tract infection, site not specified; Z20.822 Contact with and (suspected) exposure to COVID-19
CPT/HCPCS: 0241U-QW; 36415; 50435; 80053; 81003; 85025; 85610; 85730; 86850; 86900; 86901; 87086; 87186; 93005; 93010; 99285-25; C1729; C1769; C1887

== ENCOUNTER → 2022-10-03 | Day surgery (SDC) | payer BC | END | disposition home or self-care (01) | LOC: JRADIR 12:37 | PROVIDERS: ATTEND Urology | PROC: 0T25X0Z Change Drainage Device in Kidney, External Approach (ICD-10-PCS; principal; 2022-10-03) | DX: N13.9 Obstructive and reflux uropathy, unspecified (principal) | CPT/HCPCS: 50435 ==

== ENCOUNTER 2022-10-10 13:53 | Emergency (ER) | payer BC ==
[2022-10-10 14:06] VITALS: TEMP 98; BMI 24.0
[2022-10-10] MEDS ORDERED: morphine SO4 SUSTAINED ACTING 30 MG TABLET.SA PO ONE (14:41)
[2022-10-10] MEDS ORDERED: FENTANYL CITRATE/PF 50 MCG/ML VIAL ONE (15:43)
[2022-10-10 16:19] VITALS: RESP 18
[2022-10-10 16:30] VITALS: BP 166/94; PULSE 90
[2022-10-10] MEDS ORDERED: DEXAMETHASONE SOD PHOSPHATE 10 MG/1 ML VIAL IVPUSH ONE (16:39)
[2022-10-10] MEDS ORDERED: ALBUTEROL SO4 2.5/IPRATROPIUM 0.5 INH SOL 3 ML VIAL.NEB. NEB SCH (16:45)
== END 2022-10-10 18:00 | disposition home or self-care (01) ==
LOC: JER 13:53
DX: T83.022A Displacement of nephrostomy catheter, initial encounter (principal); Y84.6 Urinary catheterization as the cause of abnormal reaction of the patient, or of later complication, without mention of misadventure at the time of the procedure
CPT/HCPCS: 50382; 50435; 99284-25

== ENCOUNTER → 2022-11-14 | Day surgery (SDC) | payer BC | END | disposition home or self-care (01) | LOC: JRADIR 09:17 | PROVIDERS: ATTEND Urology | PROC: 0T25X0Z Change Drainage Device in Kidney, External Approach (ICD-10-PCS; principal; 2022-11-14) | DX: Z43.6 Encounter for attention to other artificial openings of urinary tract (principal); N13.9 Obstructive and reflux uropathy, unspecified | CPT/HCPCS: 50435; 87086; 87186; A4358; C1729 ==

== ENCOUNTER 2022-12-16 20:17 | Observation (INO) | payer BC ==
[2022-12-16 22:30] LABS: BASO % 0.6 % (0-2.0); EOS % 1.5 % (0-4.5); HEMATOCRIT 37.6 % (32.4-45.2); HEMOGLOBIN 12.5 GM/dL (10.7-15.3); MCH 30.9 pg (25.7-33.7); MCHC 33.2 g/dl (32.0-36.0); MEAN CELL VOLUME 92.9 fl (80-96); MEAN PLT VOLUME 8.4 fl (7.5-11.1); MONO % 6.7 % (3.8-10.2); NEUT % 78.2 % (42.8-82.8); PLATELET COUNT 165 10^3/uL (134-434); RBC 4.05 M/mm3 (3.60-5.2); RDW 14.6 % (11.6-15.6)
[2022-12-16 22:40] LABS: POTASSIUM 5.1 mmol/L (3.5-5.1)
[2022-12-16 22:43] LABS: ALBUMIN 3.5 g/dl (3.4-5.0); BLOOD UREA NITROGEN 58.1 mg/dL (7-18); CALCIUM 8.8 mg/dL (8.5-10.1); MAGNESIUM 2.2 mg/dL (1.8-2.4)
[2022-12-16 22:47] LABS: BILIRUBIN,TOTAL 0.3 mg/dL (0.2-1); CREATININE 3.3 mg/dL (0.55-1.3); PHOSPHOROUS 3.4 mg/dL (2.5-4.9); TOT PROT 6.6 g/dl (6.4-8.2)
[2022-12-16 22:48] LABS: INR 1.06 (0.83-1.09); PROTHROMBIN TIME (PATIENT) 12.3 SEC (9.7-13.0)
[2022-12-16 22:50] LABS: ACTIVATED PTT 29.5 SECONDS (25.2-36.5)
[2022-12-16] MEDS ORDERED: DOCUSATE SODIUM 100 MG CAPSULE (FP) PO PRN (23:35)
[2022-12-17] MEDS ORDERED: ALBUTEROL SO4 HFA INHALER IH PRN (03:27)
[2022-12-17] MEDS ORDERED: ALBUTEROL SO4 0.083% IH SOL 2.5 MG/3 ML VIAL.NEB. NEB PRN (03:27)
[2022-12-17] MEDS ORDERED: oxyCODONE HCL 5 MG TABLET PO ONE (03:36)
[2022-12-17 03:48] VITALS: BMI 23.8
[2022-12-17] MEDS: morphine SO4 SUSTAINED ACTING 30 MG TABLET.SA PO SCH ×2 (09:12→23:31)
[2022-12-17 09:44] LABS: BASO % 0.7 % (0-2.0); EOS % 2.4 % (0-4.5); HEMATOCRIT 39.5 % (32.4-45.2); HEMOGLOBIN 12.5 GM/dL (10.7-15.3); LYMPH % 13.8 % (8-40); MCH 30.6 pg (25.7-33.7); MCHC 31.7 g/dl (32.0-36.0); MEAN CELL VOLUME 96.5 fl (80-96); MEAN PLT VOLUME 9.5 fl (7.5-11.1); MONO % 8.1 % (3.8-10.2); PLATELET COUNT 179 10^3/uL (134-434); RDW 14.2 % (11.6-15.6)
[2022-12-17] MEDS: BUDESONIDE/FORMETEROL FUMARATE 160/4.5 mcg INHALER IH SCH ×2 (09:49→23:30)
[2022-12-17 10:03] LABS: POTASSIUM 5.2 mmol/L (3.5-5.1)
[2022-12-17 10:06] LABS: BLOOD UREA NITROGEN 53.4 mg/dL (7-18); CALCIUM 8.9 mg/dL (8.5-10.1)
[2022-12-17 10:10] LABS: CREATININE 3.3 mg/dL (0.55-1.3)
[2022-12-17] MEDS ORDERED: diazePAM 2 MG TABLET PO PRN (10:35)
[2022-12-17] MEDS ORDERED: SODIUM ZIRCONIUM CYCLOSILICATE (LOKELMA) 5 GM PACKET PO ONE (10:37)
[2022-12-17] MEDS: oxyCODONE HCL 5 MG TABLET PO PRN (14:16)
[2022-12-17] MEDS: NEBIVOLOL 5 MG TABLET (FP) PO SCH (15:09)
[2022-12-17] MEDS ORDERED: SODIUM ZIRCONIUM CYCLOSILICATE (LOKELMA) 5 GM PACKET PO SCH (18:00)
[2022-12-18] MEDS: oxyCODONE HCL 5 MG TABLET PO PRN (05:00)
[2022-12-18] MEDS: NEBIVOLOL 5 MG TABLET (FP) PO SCH (09:06)
[2022-12-18] MEDS: morphine SO4 SUSTAINED ACTING 30 MG TABLET.SA PO SCH (09:06)
[2022-12-18] MEDS: BUDESONIDE/FORMETEROL FUMARATE 160/4.5 mcg INHALER IH SCH (09:09)
[2022-12-18 09:22] LABS: POTASSIUM 4.6 mmol/L (3.5-5.1)
[2022-12-18 09:32] LABS: ALBUMIN 2.9 g/dl (3.4-5.0); CALCIUM 8.3 mg/dL (8.5-10.1)
[2022-12-18 09:33] LABS: BLOOD UREA NITROGEN 63.3 mg/dL (7-18)
[2022-12-18 09:34] LABS: CREATININE 3.3 mg/dL (0.55-1.3); TOT PROT 5.8 g/dl (6.4-8.2)
[2022-12-18 09:36] LABS: BILIRUBIN,TOTAL 0.8 mg/dL (0.2-1)
[2022-12-18] MEDS ORDERED: FENTANYL CITRATE/PF 50 MCG/ML VIAL ONE (10:22)
[2022-12-18 14:16] VITALS: BP 135/82; PULSE 77; RESP 18; TEMP 99.1
== END 2022-12-18 15:45 | disposition home or self-care (01) ==
LOC: JER 20:17 → JERFT 20:17 → JERBED 22:52 → J5S 12-17 03:28 → J6S 12-17 12:51
PROVIDERS: ADMIT Internal Medicine; ATTEND Family Medicine
PROC: 0T25X0Z Change Drainage Device in Kidney, External Approach (ICD-10-PCS; principal; 2022-12-16)
DX: Z91.041 Radiographic dye allergy status (principal); J44.9 Chronic obstructive pulmonary disease, unspecified; R42 Dizziness and giddiness; N13.9 Obstructive and reflux uropathy, unspecified; I12.9 Hypertensive chronic kidney disease with stage 1 through stage 4 chronic kidney disease, or unspecified chronic kidney disease; N18.9 Chronic kidney disease, unspecified; Z98.2 Presence of cerebrospinal fluid drainage device; N20.0 Calculus of kidney; H91.90 Unspecified hearing loss, unspecified ear; F17.210 Nicotine dependence, cigarettes, uncomplicated; Z88.0 Allergy status to penicillin; G89.29 Other chronic pain
CPT/HCPCS: 36415; 50435; 80048; 80053; 83735; 84100; 85025; 85610; 85730; 86850; 86900; 86901; 93005; 93010; 99285-25; G0378

== ENCOUNTER 2023-01-10 16:00 | Observation (INO) | payer BC ==
[2023-01-10 19:20] LABS: BASO % 0.9 % (0-2.0); EOS % 2.6 % (0-4.5); HEMATOCRIT 36.7 % (32.4-45.2); HEMOGLOBIN 11.5 GM/dL (10.7-15.3); LYMPH % 15.4 % (8-40); MCH 30.4 pg (25.7-33.7); MCHC 31.5 g/dl (32.0-36.0); MEAN CELL VOLUME 96.5 fl (80-96); MEAN PLT VOLUME 10.8 fl (7.5-11.1); MONO % 8.4 % (3.8-10.2); NEUT % 72.7 % (42.8-82.8); PLATELET COUNT 243 10^3/uL (134-434); RDW 14.1 % (11.6-15.6); WHITE BLOOD COUNT 5.4 K/mm3 (4.0-10.0)
[2023-01-10 19:47] LABS: CHLORIDE 114 mmol/L (98-107); SODIUM 144 mmol/L (136-145)
[2023-01-10 19:51] LABS: CALCIUM 8.5 mg/dL (8.5-10.1)
[2023-01-10 19:52] LABS: ALBUMIN 3.2 g/dl (3.4-5.0); BLOOD UREA NITROGEN 53.9 mg/dL (7-18); CO2 25 mmol/L (21-32); GLUCOSE,RANDOM 103 mg/dL (74-106)
[2023-01-10 19:55] LABS: CREATININE 3.8 mg/dL (0.55-1.3); SGOT/AST 54 U/L (15-37)
[2023-01-10 19:57] LABS: BILIRUBIN,TOTAL 0.3 mg/dL (0.2-1); TOT PROT 6.9 g/dl (6.4-8.2)
[2023-01-10 19:58] LABS: ALK PHOS 99 U/L (45-117)
[2023-01-10 19:59] LABS: ANION GAP 6 MMOL/L (8-16); POTASSIUM 6.7 mmol/L (3.5-5.1); SGPT/ALT 21 U/L (13-61)
[2023-01-10] MEDS ORDERED: ACETAMINOPHEN 325 MG TABLET (FP) PO PRN (21:47)
[2023-01-10] MEDS ORDERED: ALBUTEROL SO4 0.083% IH SOL 2.5 MG/3 ML VIAL.NEB. NEB PRN (21:47)
[2023-01-10] MEDS ORDERED: diazePAM 2 MG TABLET PO PRN (21:47)
[2023-01-10 21:52] LABS: EPI CELLS >36 /uL (0-25.1); HYALINE CASTS 2 /uL (0-3.1); PH,URINE 7.5 (5.0-8.0); URINE APPEARANCE TURBID; URINE BACTERIA >9,000 /uL (0-1359); URINE BILIRUBIN NEGATIVE (NEGATIVE); URINE COLOR YELLOW; URINE GLUCOSE (UA) NEGATIVE (NEGATIVE); URINE KETONE NEGATIVE (NEGATIVE); URINE LEUK ESTERASE 3+ (NEGATIVE); URINE NITRITE NEGATIVE (NEGATIVE); URINE PROTEIN 3+ (NEGATIVE); URINE RBC 319 /uL (0-23.9); URINE UROBILINOGEN 0.2 mg/dL (0.2-1.0); URINE WBC 1554 /uL (0-25.8)
[2023-01-10] MEDS ORDERED: DOCUSATE SODIUM 100 MG CAPSULE (FP) PO PRN (21:54)
[2023-01-10] MEDS ORDERED: oxyCODONE HCL 5 MG TABLET PO PRN (21:57)
[2023-01-10] MEDS ORDERED: morphine SO4 SUSTAINED ACTING 30 MG TABLET.SA PO SCH (22:00)
[2023-01-10] MEDS ORDERED: AZTREONAM 1 GM VIAL (RESTRICTED TO ID) IVPB ONE (22:15)
[2023-01-10 22:19] LABS: INR 1.01 (0.83-1.09); POTASSIUM 4.9 mmol/L (3.5-5.1); PROTHROMBIN TIME (PATIENT) 11.7 SEC (9.7-13.0)
[2023-01-10 22:21] LABS: ACTIVATED PTT 31.4 SECONDS (25.2-36.5); BLOOD UREA NITROGEN 54.1 mg/dL (7-18); CALCIUM 8.7 mg/dL (8.5-10.1)
[2023-01-10 22:24] LABS: CREATININE 3.7 mg/dL (0.55-1.3)
[2023-01-11] MEDS ORDERED: morphine SO4 SUSTAINED ACTING 30 MG TABLET.SA PO SCH (02:14)
[2023-01-11] MEDS: BUDESONIDE/FORMETEROL FUMARATE 160/4.5 mcg INHALER IH SCH ×3 (02:28→22:04)
[2023-01-11 02:41] LABS: EPI CELLS >36 /uL (0-25.1); HYALINE CASTS 5 /uL (0-3.1); PH,URINE 5.5 (5.0-8.0); URINE APPEARANCE TURBID; URINE BACTERIA >9,000 /uL (0-1359); URINE BILIRUBIN NEGATIVE (NEGATIVE); URINE COLOR YELLOW; URINE GLUCOSE (UA) NEGATIVE (NEGATIVE); URINE KETONE NEGATIVE (NEGATIVE); URINE LEUK ESTERASE 3+ (NEGATIVE); URINE NITRITE POSITIVE (NEGATIVE); URINE PROTEIN 3+ (NEGATIVE); URINE RBC 4468 /uL (0-23.9); URINE UROBILINOGEN 0.2 mg/dL (0.2-1.0); URINE WBC 12670 /uL (0-25.8)
[2023-01-11] MEDS ORDERED: AZTREONAM 1 GM VIAL (RESTRICTED TO ID) ONE (02:41)
[2023-01-11 04:30] VITALS: BMI 24.7
[2023-01-11] MEDS: morphine SO4 SUSTAINED ACTING 30 MG TABLET.SA PO SCH ×2 (09:54→22:03)
[2023-01-11 10:29] LABS: BASO % 0.9 % (0-2.0); EOS % 2.4 % (0-4.5); HEMATOCRIT 34.2 % (32.4-45.2); HEMOGLOBIN 10.7 GM/dL (10.7-15.3); LYMPH % 18.2 % (8-40); MCH 30.2 pg (25.7-33.7); MCHC 31.3 g/dl (32.0-36.0); MEAN CELL VOLUME 96.5 fl (80-96); MEAN PLT VOLUME 9.8 fl (7.5-11.1); MONO % 9.8 % (3.8-10.2); NEUT % 68.7 % (42.8-82.8); PLATELET COUNT 124 10^3/uL (134-434); RBC 3.55 M/mm3 (3.60-5.2); RDW 14.2 % (11.6-15.6); WHITE BLOOD COUNT 4.3 K/mm3 (4.0-10.0)
[2023-01-11 11:13] LABS: POTASSIUM 4.6 mmol/L (3.5-5.1)
[2023-01-11 11:37] LABS: BLOOD UREA NITROGEN 52.7 mg/dL (7-18); CALCIUM 8.5 mg/dL (8.5-10.1)
[2023-01-11 11:40] LABS: CREATININE 3.7 mg/dL (0.55-1.3)
[2023-01-11] MEDS ORDERED: AZTREONAM 1 GM in DEXTROSE 5%-WATER - 50 ML IVPB SCH (15:00)
[2023-01-12] MEDS: morphine SO4 SUSTAINED ACTING 30 MG TABLET.SA PO SCH (10:01)
[2023-01-12] MEDS: BUDESONIDE/FORMETEROL FUMARATE 160/4.5 mcg INHALER IH SCH (10:02)
[2023-01-12 10:09] LABS: HEMOGLOBIN 10.9 GM/dL (10.7-15.3); MCH 29.9 pg (25.7-33.7); MCHC 31.2 g/dl (32.0-36.0); MEAN CELL VOLUME 95.9 fl (80-96); MEAN PLT VOLUME 9.4 fl (7.5-11.1); PLATELET COUNT 135 10^3/uL (134-434); RBC 3.65 M/mm3 (3.60-5.2); RDW 14.2 % (11.6-15.6); WHITE BLOOD COUNT 4.5 K/mm3 (4.0-10.0)
[2023-01-12 10:41] VITALS: BP 131/75; PULSE 92; RESP 20; TEMP 98
[2023-01-12 10:52] LABS: POTASSIUM 4.6 mmol/L (3.5-5.1)
[2023-01-12 11:15] LABS: ALBUMIN 3.1 g/dl (3.4-5.0)
[2023-01-12 11:16] LABS: BLOOD UREA NITROGEN 64.1 mg/dL (7-18); CALCIUM 8.9 mg/dL (8.5-10.1)
[2023-01-12 11:18] LABS: CREATININE 3.8 mg/dL (0.55-1.3)
[2023-01-12 11:20] LABS: BILIRUBIN,TOTAL 0.2 mg/dL (0.2-1); TOT PROT 6.1 g/dl (6.4-8.2)
[2023-01-12] MEDS ORDERED: AZTREONAM 1 GM in DEXTROSE 5%-WATER - 50 ML IVPB SCH (15:00)
== END 2023-01-12 11:18 | disposition home or self-care (01) ==
LOC: JER 16:00 → JERBED 18:14 → J8W 01-11 03:36
PROVIDERS: ADMIT Internal Medicine; ATTEND Family Medicine
PROC: 0T25X0Z Change Drainage Device in Kidney, External Approach (ICD-10-PCS; principal; 2023-01-10)
PROC: 3E03329 Introduction of Other Anti-infective into Peripheral Vein, Percutaneous Approach (ICD-10-PCS; 2023-01-10)
PROC: 3E0F7SF Introduction of Other Gas into Respiratory Tract, Via Natural or Artificial Opening (ICD-10-PCS; 2023-01-10)
DX: T83.022A Displacement of nephrostomy catheter, initial encounter (principal); N18.9 Chronic kidney disease, unspecified; I12.9 Hypertensive chronic kidney disease with stage 1 through stage 4 chronic kidney disease, or unspecified chronic kidney disease; N17.9 Acute kidney failure, unspecified; N39.0 Urinary tract infection, site not specified; E87.5 Hyperkalemia; R10.9 Unspecified abdominal pain; F11.20 Opioid dependence, uncomplicated; J44.9 Chronic obstructive pulmonary disease, unspecified; F41.8 Other specified anxiety disorders; H91.90 Unspecified hearing loss, unspecified ear; F17.210 Nicotine dependence, cigarettes, uncomplicated; Z87.448 Personal history of other diseases of urinary system; Z85.3 Personal history of malignant neoplasm of breast; Z88.0 Allergy status to penicillin; Z85.42 Personal history of malignant neoplasm of other parts of uterus; Z91.041 Radiographic dye allergy status; Y73.1 Therapeutic (nonsurgical) and rehabilitative gastroenterology and urology devices associated with adverse incidents; Y92.9 Unspecified place or not applicable; N99.528 Other complication of incontinent external stoma of urinary tract
CPT/HCPCS: 36415; 50432; 80048; 80053; 81003; 82962; 85025; 85027; 85610; 85730; 86850; 86900; 86901; 87070; 87075; 87086; 87102; 87116; 87186; 87205; 87206; 87210; 93970-TC; 99285-25; G0378

== ENCOUNTER 2023-03-28 21:37 | Inpatient (IN) | payer BC, OTHER ==
[2023-03-28] MEDS ORDERED: ONDANSETRON 4 MG/2 ML VIAL IVPUSH ONE (22:26)
[2023-03-28] MEDS ORDERED: LACTATED RINGERS SOLUTION 1000 ML INFUS.BAG IV ONE ×2 (22:26→23:36)
[2023-03-28] MEDS ORDERED: FAMOTIDINE 20 MG/50 ML IVPB 20 MG/50 ML MG IVPB ONE ×2 (22:26→22:36)
[2023-03-28] MEDS ORDERED: ACETAMINOPHEN 1000 MG/100 ML BAG IVPB ONE (22:26)
[2023-03-28] MEDS ORDERED: ACETAMINOPHEN INJECTION 100 ML IVPB ONE (22:35)
[2023-03-28] MEDS ORDERED: ONDANSETRON 4 MG/2 ML VIAL ONE (22:35)
[2023-03-28 23:29] LABS: VENOUS BASE EXCESS -14.7 mmol/L (-2-2); VENOUS O2 SATURATION 38.8 % (70-80); VENOUS PCO2 48.7 mmHg (38-52)
[2023-03-28 23:31] LABS: EPI CELLS 8 /uL (0-25.1); HYALINE CASTS 0 /uL (0-3.1); PH,URINE 5.5 (5.0-8.0); URINE APPEARANCE CLOUDY; URINE BACTERIA 5481 /uL (0-1359); URINE BILIRUBIN NEGATIVE (NEGATIVE); URINE COLOR YELLOW; URINE GLUCOSE (UA) NEGATIVE (NEGATIVE); URINE KETONE NEGATIVE (NEGATIVE); URINE LEUK ESTERASE 3+ (NEGATIVE); URINE NITRITE POSITIVE (NEGATIVE); URINE PROTEIN 3+ (NEGATIVE); URINE RBC 656 /uL (0-23.9); URINE UROBILINOGEN 0.2 mg/dL (0.2-1.0); URINE WBC 1273 /uL (0-25.8)
[2023-03-28 23:33] LABS: BASO % 0.1 % (0-2.0); HEMATOCRIT 34.1 % (32.4-45.2); HEMOGLOBIN 11.5 GM/dL (10.7-15.3); LYMPH % 3.7 % (8-40); MCHC 33.7 g/dl (32.0-36.0); MEAN CELL VOLUME 91.9 fl (80-96); MEAN PLT VOLUME 9.2 fl (7.5-11.1); NEUT % 91.2 % (42.8-82.8); PLATELET COUNT 132 10^3/uL (134-434); RBC 3.71 M/mm3 (3.60-5.2); RDW 15.3 % (11.6-15.6); WHITE BLOOD COUNT 7.9 K/mm3 (4.0-10.0)
[2023-03-28 23:35] LABS: VENOUS PH 7.099 (7.310-7.410)
[2023-03-28] MEDS ORDERED: VANCOMYCIN 1,000 MG in DEXTROSE 5%-WATER - 250 ML IVPB ONE (23:39)
[2023-03-28] MEDS ORDERED: MEROPENEM 1 GM in DEXTROSE 5%-WATER 100 ML IVPB ONE (23:40)
[2023-03-28 23:42] LABS: ACTIVATED PTT 28.2 SECONDS (25.2-36.5); INR 1.02 (0.83-1.09); PROTHROMBIN TIME (PATIENT) 11.8 SEC (9.7-13.0)
[2023-03-28 23:53] LABS: POTASSIUM 5.4 mmol/L (3.5-5.1)
[2023-03-28 23:54] LABS: PLATELET ESTIMATE DECREASED
[2023-03-28 23:55] LABS: ALBUMIN 3.5 g/dl (3.4-5.0); BLOOD UREA NITROGEN 97.7 mg/dL (7-18); CALCIUM 7.8 mg/dL (8.5-10.1)
[2023-03-28 23:58] LABS: CREATININE 5.6 mg/dL (0.55-1.3)
[2023-03-29] LABS: BILIRUBIN,TOTAL 0.4 mg/dL (0.2-1); TOT PROT 6.9 g/dl (6.4-8.2)
[2023-03-29] MEDS ORDERED: MEROPENEM 1 GM VIAL (RESTRICTED TO ID) IVPB ONE (00:22)
[2023-03-29] MEDS ORDERED: ONDANSETRON 4 MG/2 ML VIAL IVPUSH ONE (00:36)
[2023-03-29] MEDS ORDERED: ONDANSETRON 4 MG/2 ML VIAL ONE (01:12)
[2023-03-29] MEDS ORDERED: DEXTROSE 5%-WATER - 1,000 ML with SODIUM BICARBONATE 8.4% - 150 MEQ IV SCH (01:30)
[2023-03-29 03:09] LABS: POTASSIUM 4.7 mmol/L (3.5-5.1)
[2023-03-29 03:12] LABS: CALCIUM 7.1 mg/dL (8.5-10.1)
[2023-03-29 03:13] LABS: BLOOD UREA NITROGEN 93.4 mg/dL (7-18); MAGNESIUM 1.9 mg/dL (1.8-2.4)
[2023-03-29 03:16] LABS: CREATININE 4.8 mg/dL (0.55-1.3)
[2023-03-29 03:17] LABS: TOT PROT 5.7 g/dl (6.4-8.2)
[2023-03-29 03:18] LABS: BILIRUBIN,TOTAL 0.3 mg/dL (0.2-1)
[2023-03-29 03:54] LABS: ARTERIAL BLD GAS O2 SATURATION 80.1 % (95-98); ARTERIAL BLOOD GAS BASE EXCESS -18.3 mmol/L (-2-2); ARTERIAL BLOOD GAS PO2 67.5 mmHg (80-100)
[2023-03-29 04:18] LABS: ARTERIAL BLOOD GAS pH 6.965 (7.350-7.450)
[2023-03-29] MEDS ORDERED: NALOXONE HCL 0.4 MG/ML VIAL ONE (04:23)
[2023-03-29] MEDS ORDERED: ALBUTEROL SO4 2.5/IPRATROPIUM 0.5 INH SOL 3 ML VIAL.NEB. NEB ONE ×2 (04:25→04:30)
[2023-03-29] MEDS ORDERED: methylPREDNISolone NA SUCC 125 MG/2 ML VIAL IVPUSH ONE (04:25)
[2023-03-29] MEDS ORDERED: methylPREDNISolone NA SUCC 125 MG/2 ML VIAL ONE (04:30)
[2023-03-29] MEDS ORDERED: NALOXONE HCL 0.4 MG/ML VIAL IVPUSH ONE (05:19)
[2023-03-29] MEDS: ALBUTEROL SO4 2.5/IPRATROPIUM 0.5 INH SOL 3 ML VIAL.NEB. NEB SCH ×4 (06:55→20:05)
[2023-03-29 07:13] LABS: ALLENS TEST POSITIVE; ARTERIAL BLD GAS O2 SATURATION 91.9 % (95-98); ARTERIAL BLOOD GAS BASE EXCESS -18.5 mmol/L (-2-2); ARTERIAL BLOOD GAS PO2 95.6 mmHg (80-100); VENT MODE S/T
[2023-03-29 07:14] LABS: ARTERIAL BLOOD GAS pH 6.961 (7.350-7.450); VENT RATE 14
[2023-03-29] MEDS ORDERED: SODIUM BICARBONATE 8.4% 50 MEQ/50 ML DISP.SYRIN IVPUSH ONE (07:57)
[2023-03-29] MEDS ORDERED: SODIUM CHLORIDE 0.45% 1,000 ML IV SCH (08:15)
[2023-03-29] MEDS ORDERED: morphine SULFATE 4 MG/ML VIAL IVPUSH ONE ×3 (08:18→11:45)
[2023-03-29 09:11] LABS: N-TERMINAL BNP 2376.2 pg/ml (5-125)
[2023-03-29 09:20] LABS: ARTERIAL BLD GAS O2 SATURATION 98.1 % (95-98); ARTERIAL BLOOD GAS BASE EXCESS -14.9 mmol/L (-2-2); ARTERIAL BLOOD GAS PO2 163.3 mmHg (80-100)
[2023-03-29 09:33] LABS: ALLENS TEST POSITIVE
[2023-03-29 09:34] LABS: VENT MODE S/T; VENT RATE 20
[2023-03-29 09:35] LABS: ARTERIAL BLOOD GAS pH 7.027 (7.350-7.450)
[2023-03-29] MEDS: MUPIROCIN 2% TOPICAL OINTMENT FOR DECOLONIZATION NS SCH ×2 (09:45→21:10)
[2023-03-29] MEDS: BUDESONIDE/FORMETEROL FUMARATE 160/4.5 mcg INHALER IH SCH ×2 (09:46→21:11)
[2023-03-29] MEDS: methylPREDNISolone NA SUCC 40 MG/1 ML VIAL IVPUSH SCH ×2 (09:46→17:18)
[2023-03-29] MEDS ORDERED: MEROPENEM 500 MG in DEXTROSE 5%-WATER 100 ML IVPB SCH (10:00)
[2023-03-29] MEDS ORDERED: MEROPENEM 1 GM in DEXTROSE 5%-WATER 100 ML IVPB SCH (10:00)
[2023-03-29] MEDS: NICOTINE 14 MG/24 HOURS TOPICAL PATCH TD SCH (11:02)
[2023-03-29] MEDS ORDERED: DEXMEDETOMIDINE PREMIX 400 MCG/100 ML BAG IVPB ONE (11:44)
[2023-03-29] MEDS ORDERED: DEXMEDETOMIDINE PREMIX 400 MCG/100 ML BAG IVPB SCH (11:45)
[2023-03-29] MEDS ORDERED: ACETAMINOPHEN 1000 MG/100 ML BAG IVPB ONE ×2 (12:32→18:07)
[2023-03-29] MEDS: SODIUM BICARBONATE 8.4% 50 MEQ/50 ML VIAL IVPUSH SCH ×2 (13:04→21:10)
[2023-03-29 13:16] LABS: ARTERIAL BLD GAS O2 SATURATION 89.4 % (95-98); ARTERIAL BLOOD GAS BASE EXCESS -14.5 mmol/L (-2-2); ARTERIAL BLOOD GAS PO2 82.6 mmHg (80-100)
[2023-03-29 13:20] LABS: ALLENS TEST POSITIVE
[2023-03-29 13:21] LABS: VENT MODE S/T; VENT RATE 20
[2023-03-29 13:22] LABS: ARTERIAL BLOOD GAS pH 7.015 (7.350-7.450)
[2023-03-29] MEDS ORDERED: RAPID SEQUENCE INTUBATION KIT NR ONE (13:25)
[2023-03-29 13:31] LABS: HEMATOCRIT 32.9 % (32.4-45.2); HEMOGLOBIN 10.9 GM/dL (10.7-15.3); MCH 30.9 pg (25.7-33.7); MCHC 33.1 g/dl (32.0-36.0); MEAN CELL VOLUME 93.5 fl (80-96); MEAN PLT VOLUME 8.8 fl (7.5-11.1); PLATELET COUNT 110 10^3/uL (134-434); RBC 3.52 M/mm3 (3.60-5.2); RDW 15.2 % (11.6-15.6); WHITE BLOOD COUNT 8.9 K/mm3 (4.0-10.0)
[2023-03-29] MEDS ORDERED: MIDAZOLAM HCL 2 MG/2 ML SINGLE DOSE VIAL ONE (13:41)
[2023-03-29] MEDS ORDERED: PROPOFOL 1,000,000 MCG/100 ML VIAL ONE (13:47)
[2023-03-29 13:52] LABS: POTASSIUM 4.8 mmol/L (3.5-5.1)
[2023-03-29 13:55] LABS: CALCIUM 7.3 mg/dL (8.5-10.1)
[2023-03-29 13:56] LABS: BLOOD UREA NITROGEN 92.3 mg/dL (7-18)
[2023-03-29 14:00] LABS: BILIRUBIN,TOTAL 0.3 mg/dL (0.2-1); TOT PROT 6.1 g/dl (6.4-8.2)
[2023-03-29] MEDS ORDERED: MIDAZOLAM HCL 2 MG/2 ML SINGLE DOSE VIAL IVPUSH ONE (14:00)
[2023-03-29 14:03] LABS: N-TERMINAL BNP 6081.8 pg/ml (5-125)
[2023-03-29 14:07] LABS: ANISOCYTOSIS 0; HELMET CELLS 0; HOWELL-JOLLY BODIES 0; MACROCYTOSIS 0; OVALOCYTE 0; ROULEAU 0; SICKELED CELLS 0; TARGET CELLS 0; TEAR DROP CELLS 0; TOXIC GRANULATION 0
[2023-03-29] MEDS: PROPOFOL 1,000,000 MCG/100 ML VIAL IVPB SCH (14:15)
[2023-03-29] MEDS: HEPARIN NA (PORCINE) 5,000 UNITS/ML 1ML VIAL SQ SCH ×2 (15:27→21:11)
[2023-03-29 15:49] LABS: ARTERIAL BLD GAS O2 SATURATION 99.8 % (95-98); ARTERIAL BLOOD GAS BASE EXCESS -9.7 mmol/L (-2-2); ARTERIAL BLOOD GAS PO2 404.7 mmHg (80-100); ARTERIAL BLOOD GAS pH 7.342 (7.350-7.450)
[2023-03-29 15:53] LABS: ALLENS TEST POSITIVE
[2023-03-29 15:54] LABS: VENT MODE A/C; VENT RATE 20
[2023-03-29] MEDS: FENTANYL NS IVPB 500 MCG/100 ML BAG IVPB SCH ×2 (17:17→22:18)
[2023-03-29 17:26] LABS: EPI CELLS 21 /uL (0-25.1); HYALINE CASTS 0 /uL (0-3.1); PH,URINE 5.5 (5.0-8.0); URINE APPEARANCE CLEAR; URINE BILIRUBIN NEGATIVE (NEGATIVE); URINE COLOR YELLOW; URINE GLUCOSE (UA) NEGATIVE (NEGATIVE); URINE KETONE NEGATIVE (NEGATIVE); URINE LEUK ESTERASE TRACE (NEGATIVE); URINE NITRITE POSITIVE (NEGATIVE); URINE PROTEIN 2+ (NEGATIVE); URINE RBC 37 /uL (0-23.9); URINE UROBILINOGEN 0.2 mg/dL (0.2-1.0); URINE WBC 44 /uL (0-25.8)
[2023-03-29 17:37] LABS: METHADONE, UR NEGATIVE (NEGATIVE); URINE AMPHETAMINES NEGATIVE (NEGATIVE); URINE BENZODIAZEPINES NEGATIVE (NEGATIVE)
[2023-03-29 17:39] LABS: PHENCYCLIDINE,URINE NEGATIVE (NEGATIVE); URINE BARBITURATES NEGATIVE (NEGATIVE)
[2023-03-29] MEDS ORDERED: LABETALOL HCL 5 MG/1 ML (100MG/20 ML VIAL) IVPUSH ONE (17:39)
[2023-03-29] MEDS ORDERED: hydrALAZINE HCL 20 MG/ML VIAL IVPUSH ONE (17:42)
[2023-03-29 17:51] LABS: COCAINE, UR NEGATIVE (NEGATIVE); OPIATES, URI POSITIVE (NEGATIVE)
[2023-03-29] MEDS ORDERED: LORazepam 2 MG/ML SDV VIAL IVPUSH ONE (18:05)
[2023-03-29] MEDS ORDERED: VANCOMYCIN/WATER FOR INJ (PEG) 1,000 MG/200 ML BAG IVPB ONE (18:07)
[2023-03-29] MEDS ORDERED: CALCIUM GLUCONATE 10% - 1,000 MG/10 ML VIAL IVPUSH ONE (18:33)
[2023-03-29] MEDS: NICARDIPINE 25 MG in DEXTROSE 5%-WATER - 240 ML IVPB SCH (18:51)
[2023-03-29 19:08] LABS: BASO % 0.1 % (0-2.0); HEMATOCRIT 31.5 % (32.4-45.2); HEMOGLOBIN 10.7 GM/dL (10.7-15.3); MCH 31.1 pg (25.7-33.7); MEAN CELL VOLUME 91.4 fl (80-96); MEAN PLT VOLUME 8.7 fl (7.5-11.1); MONO % 2.9 % (3.8-10.2); PLATELET COUNT 106 10^3/uL (134-434); RBC 3.45 M/mm3 (3.60-5.2); RDW 14.9 % (11.6-15.6); WHITE BLOOD COUNT 7.8 K/mm3 (4.0-10.0)
[2023-03-29 19:33] LABS: CHLORIDE 115 mmol/L (98-107); POTASSIUM 4.3 mmol/L (3.5-5.1); SODIUM 144 mmol/L (136-145)
[2023-03-29 19:37] LABS: ANION GAP 15 MMOL/L (8-16); CALCIUM 7.7 mg/dL (8.5-10.1); CO2 14 mmol/L (21-32)
[2023-03-29 19:38] LABS: BLOOD UREA NITROGEN 92.2 mg/dL (7-18); GLUCOSE,RANDOM 140 mg/dL (74-106)
[2023-03-29 19:40] LABS: SGOT/AST 32 U/L (15-37)
[2023-03-29 19:41] LABS: SGPT/ALT 26 U/L (13-61)
[2023-03-29 19:42] LABS: BILIRUBIN,TOTAL 0.6 mg/dL (0.2-1); TOT PROT 5.8 g/dl (6.4-8.2)
[2023-03-29 19:43] LABS: ALK PHOS 82 U/L (45-117)
[2023-03-29] MEDS: CHLORHEXIDINE GLUCONATE 4% CLEANSER FOR DECOLONIZATION TP SCH (21:11)
[2023-03-29 22:30] LABS: URINE BACTERIA 97.7 /uL (0-1359)
[2023-03-30] MEDS: PROPOFOL 1,000,000 MCG/100 ML VIAL IVPB SCH ×3 (01:00→20:00)
[2023-03-30] MEDS: methylPREDNISolone NA SUCC 40 MG/1 ML VIAL IVPUSH SCH ×3 (02:03→17:19)
[2023-03-30] MEDS: SODIUM BICARBONATE 8.4% 50 MEQ/50 ML VIAL IVPUSH SCH ×2 (02:03→07:53)
[2023-03-30] MEDS: FENTANYL NS IVPB 500 MCG/100 ML BAG IVPB SCH ×3 (03:14→21:33)
[2023-03-30] MEDS: HEPARIN NA (PORCINE) 5,000 UNITS/ML 1ML VIAL SQ SCH ×3 (05:20→21:13)
[2023-03-30 06:26] LABS: ARTERIAL BLD GAS O2 SATURATION 98.2 % (95-98); ARTERIAL BLOOD GAS BASE EXCESS -8.5 mmol/L (-2-2); ARTERIAL BLOOD GAS PO2 127.3 mmHg (80-100); ARTERIAL BLOOD GAS pH 7.283 (7.350-7.450)
[2023-03-30] MEDS ORDERED: ACETAMINOPHEN 1000 MG/100 ML BAG IVPB ONE (06:31)
[2023-03-30 06:40] LABS: VENT MODE V-A/C; VENT RATE 20
[2023-03-30 07:50] LABS: HEMATOCRIT 29.6 % (32.4-45.2); MCH 30.9 pg (25.7-33.7); MCHC 33.8 g/dl (32.0-36.0); MEAN CELL VOLUME 91.2 fl (80-96); MEAN PLT VOLUME 8.9 fl (7.5-11.1); PLATELET COUNT 110 10^3/uL (134-434); RBC 3.24 M/mm3 (3.60-5.2); RDW 14.6 % (11.6-15.6); WHITE BLOOD COUNT 9.4 K/mm3 (4.0-10.0)
[2023-03-30 08:15] LABS: POTASSIUM 3.8 mmol/L (3.5-5.1)
[2023-03-30 08:16] LABS: CALCIUM 7.7 mg/dL (8.5-10.1)
[2023-03-30] MEDS ORDERED: LORazepam 2 MG/ML SDV VIAL IVPUSH ONE (08:16)
[2023-03-30 08:17] LABS: ALBUMIN 2.8 g/dl (3.4-5.0); BLOOD UREA NITROGEN 93.5 mg/dL (7-18); MAGNESIUM 1.9 mg/dL (1.8-2.4)
[2023-03-30 08:20] LABS: CREATININE 4.9 mg/dL (0.55-1.3); PHOSPHOROUS 3.7 mg/dL (2.5-4.9)
[2023-03-30 08:21] LABS: BILIRUBIN,TOTAL 0.8 mg/dL (0.2-1); TOT PROT 5.4 g/dl (6.4-8.2)
[2023-03-30] MEDS: ALBUTEROL SO4 2.5/IPRATROPIUM 0.5 INH SOL 3 ML VIAL.NEB. NEB SCH ×4 (08:23→20:05)
[2023-03-30] MEDS ORDERED: DEXTROSE 5%-WATER - 1,000 ML IV SCH (08:45)
[2023-03-30] MEDS: BUDESONIDE/FORMETEROL FUMARATE 160/4.5 mcg INHALER IH SCH ×2 (09:07→21:13)
[2023-03-30] MEDS: MUPIROCIN 2% TOPICAL OINTMENT FOR DECOLONIZATION NS SCH ×2 (10:02→21:13)
[2023-03-30] MEDS: NICOTINE 14 MG/24 HOURS TOPICAL PATCH TD SCH (10:03)
[2023-03-30] MEDS: PANTOPRAZOLE SODIUM 40 MG VIAL IVPUSH SCH (10:03)
[2023-03-30 10:21] LABS: ARTERIAL BLOOD GAS BASE EXCESS -4.8 mmol/L (-2-2); ARTERIAL BLOOD GAS PO2 143.7 mmHg (80-100); ARTERIAL BLOOD GAS pH 7.465 (7.350-7.450)
[2023-03-30 10:31] LABS: VENT MODE A/C; VENT RATE 20
[2023-03-30] MEDS ORDERED: LORazepam 2 MG/ML SDV VIAL IM PRN (11:28)
[2023-03-30] MEDS: DEXMEDETOMIDINE PREMIX 400 MCG/100 ML BAG IVPB SCH (13:00)
[2023-03-30] MEDS: NICARDIPINE 25 MG in DEXTROSE 5%-WATER - 240 ML IVPB SCH (18:14)
[2023-03-30] MEDS: CHLORHEXIDINE GLUCONATE 4% CLEANSER FOR DECOLONIZATION TP SCH (21:13)
[2023-03-31] MEDS: PROPOFOL 1,000,000 MCG/100 ML VIAL IVPB SCH ×3 (01:41→18:23)
[2023-03-31] MEDS: FENTANYL NS IVPB 500 MCG/100 ML BAG IVPB SCH ×3 (01:41→18:25)
[2023-03-31] MEDS: methylPREDNISolone NA SUCC 40 MG/1 ML VIAL IVPUSH SCH ×3 (01:41→22:42)
[2023-03-31] MEDS ORDERED: FUROSEMIDE 40 MG/4 ML INJECTABLE VIAL IVPUSH ONE (03:10)
[2023-03-31] MEDS ORDERED: FUROSEMIDE INJECTION 100 MG in DEXTROSE 5%-WATER - 90 ML IVPB SCH (04:00)
[2023-03-31] MEDS: HEPARIN NA (PORCINE) 5,000 UNITS/ML 1ML VIAL SQ SCH ×3 (05:46→22:42)
[2023-03-31] MEDS: DEXMEDETOMIDINE PREMIX 400 MCG/100 ML BAG IVPB SCH (06:14)
[2023-03-31 06:26] LABS: ARTERIAL BLD GAS O2 SATURATION 99.8 % (95-98); ARTERIAL BLOOD GAS BASE EXCESS -4.7 mmol/L (-2-2); ARTERIAL BLOOD GAS PO2 369.5 mmHg (80-100); ARTERIAL BLOOD GAS pH 7.358 (7.350-7.450)
[2023-03-31 06:28] LABS: VENT MODE V-A/C
[2023-03-31 06:29] LABS: VENT RATE 19
[2023-03-31 06:54] LABS: HEMATOCRIT 30.1 % (32.4-45.2); HEMOGLOBIN 10.1 GM/dL (10.7-15.3); MCHC 33.5 g/dl (32.0-36.0); MEAN CELL VOLUME 92.5 fl (80-96); MEAN PLT VOLUME 8.9 fl (7.5-11.1); PLATELET COUNT 91 10^3/uL (134-434); RBC 3.25 M/mm3 (3.60-5.2); RDW 14.9 % (11.6-15.6); WHITE BLOOD COUNT 6.9 K/mm3 (4.0-10.0)
[2023-03-31 07:35] LABS: POTASSIUM 3.3 mmol/L (3.5-5.1)
[2023-03-31 07:44] LABS: ALBUMIN 2.8 g/dl (3.4-5.0); BLOOD UREA NITROGEN 88.2 mg/dL (7-18); CALCIUM 7.3 mg/dL (8.5-10.1); MAGNESIUM 2.1 mg/dL (1.8-2.4)
[2023-03-31 07:47] LABS: CREATININE 4.6 mg/dL (0.55-1.3); PHOSPHOROUS 6.1 mg/dL (2.5-4.9)
[2023-03-31 07:49] LABS: BILIRUBIN,TOTAL 0.4 mg/dL (0.2-1); TOT PROT 5.4 g/dl (6.4-8.2)
[2023-03-31] MEDS: ALBUTEROL SO4 2.5/IPRATROPIUM 0.5 INH SOL 3 ML VIAL.NEB. NEB SCH ×4 (08:40→20:37)
[2023-03-31 08:54] LABS: ANISOCYTOSIS 1+; MACROCYTOSIS 0; OVALOCYTE 1+; TEAR DROP CELLS 2+; TOXIC GRANULATION 2+
[2023-03-31] MEDS ORDERED: KCL 20 MEQ PREMIX BAG 100 ML IVPB STA (08:55)
[2023-03-31] MEDS: PANTOPRAZOLE SODIUM 40 MG VIAL IVPUSH SCH (09:31)
[2023-03-31] MEDS: NICOTINE 14 MG/24 HOURS TOPICAL PATCH TD SCH (09:31)
[2023-03-31] MEDS: MUPIROCIN 2% TOPICAL OINTMENT FOR DECOLONIZATION NS SCH ×2 (09:32→22:42)
[2023-03-31] MEDS: BUDESONIDE/FORMETEROL FUMARATE 160/4.5 mcg INHALER IH SCH ×2 (09:47→22:43)
[2023-03-31] MEDS ORDERED: ACETAMINOPHEN 1000 MG/100 ML BAG IVPB STA (18:09)
[2023-03-31] MEDS ORDERED: ACETAMINOPHEN INJECTION 100 ML IVPB ONE (18:19)
[2023-03-31] MEDS: CHLORHEXIDINE GLUCONATE 4% CLEANSER FOR DECOLONIZATION TP SCH (22:43)
[2023-03-31] MEDS: LORazepam 2 MG/ML SDV VIAL IVPUSH PRN (22:45)
[2023-04-01] MEDS: PROPOFOL 1,000,000 MCG/100 ML VIAL IVPB SCH ×6 (01:44→22:47)
[2023-04-01 05:11] LABS: ARTERIAL BLD GAS O2 SATURATION 99.6 % (95-98); ARTERIAL BLOOD GAS PO2 279.7 mmHg (80-100); ARTERIAL BLOOD GAS pH 7.324 (7.350-7.450)
[2023-04-01 05:13] LABS: ALLENS TEST POSITIVE
[2023-04-01 05:14] LABS: VENT MODE A/C; VENT RATE 16
[2023-04-01 06:42] LABS: HEMATOCRIT 28.8 % (32.4-45.2); HEMOGLOBIN 9.5 GM/dL (10.7-15.3); MCH 30.5 pg (25.7-33.7); MEAN CELL VOLUME 92.6 fl (80-96); PLATELET COUNT 78 10^3/uL (134-434); RBC 3.11 M/mm3 (3.60-5.2); RDW 15.1 % (11.6-15.6); WHITE BLOOD COUNT 10.8 K/mm3 (4.0-10.0)
[2023-04-01] MEDS: HEPARIN NA (PORCINE) 5,000 UNITS/ML 1ML VIAL SQ SCH ×3 (06:56→21:32)
[2023-04-01 07:23] LABS: CHLORIDE 109 mmol/L (98-107); POTASSIUM 4.2 mmol/L (3.5-5.1); SODIUM 142 mmol/L (136-145)
[2023-04-01 07:26] LABS: CALCIUM 7.2 mg/dL (8.5-10.1)
[2023-04-01 07:27] LABS: ANION GAP 11 MMOL/L (8-16); CO2 23 mmol/L (21-32); GLUCOSE,RANDOM 165 mg/dL (74-106)
[2023-04-01 07:30] LABS: CREATININE 4.9 mg/dL (0.55-1.3); PHOSPHOROUS 6.6 mg/dL (2.5-4.9)
[2023-04-01] MEDS: NICARDIPINE 25 MG in DEXTROSE 5%-WATER - 240 ML IVPB SCH ×2 (07:34→21:53)
[2023-04-01] MEDS: NOREPINEPHRINE 0.9 % NACL 8 MG/250 ML BAG IVPB SCH ×2 (07:34→17:00)
[2023-04-01] MEDS: ALBUTEROL SO4 2.5/IPRATROPIUM 0.5 INH SOL 3 ML VIAL.NEB. NEB SCH ×4 (07:45→19:27)
[2023-04-01 08:41] LABS: BLOOD UREA NITROGEN 107.4 mg/dL (7-18)
[2023-04-01] MEDS: methylPREDNISolone NA SUCC 40 MG/1 ML VIAL IVPUSH SCH (09:14)
[2023-04-01] MEDS: PANTOPRAZOLE SODIUM 40 MG VIAL IVPUSH SCH (09:14)
[2023-04-01] MEDS: NICOTINE 14 MG/24 HOURS TOPICAL PATCH TD SCH (09:14)
[2023-04-01] MEDS: BUDESONIDE/FORMETEROL FUMARATE 160/4.5 mcg INHALER IH SCH ×2 (09:14→21:34)
[2023-04-01] MEDS: LORazepam 2 MG/ML SDV VIAL IVPUSH PRN (09:15)
[2023-04-01] MEDS: MUPIROCIN 2% TOPICAL OINTMENT FOR DECOLONIZATION NS SCH ×2 (09:15→21:32)
[2023-04-01] MEDS ORDERED: SODIUM CHLORIDE 0.45% 1,000 ML IV SCH (09:45)
[2023-04-01] MEDS: FENTANYL NS IVPB 500 MCG/100 ML BAG IVPB SCH ×2 (11:26→17:30)
[2023-04-01] MEDS ORDERED: hydrALAZINE HCL 20 MG/ML VIAL IVPUSH ONE (20:34)
[2023-04-01] MEDS: CHLORHEXIDINE GLUCONATE 4% CLEANSER FOR DECOLONIZATION TP SCH (21:33)
[2023-04-02] MEDS: FENTANYL NS IVPB 500 MCG/100 ML BAG IVPB SCH ×3 (02:11→09:28)
[2023-04-02] MEDS: HEPARIN NA (PORCINE) 5,000 UNITS/ML 1ML VIAL SQ SCH ×3 (06:09→21:03)
[2023-04-02 07:17] LABS: ARTERIAL BLD GAS O2 SATURATION 97.4 % (95-98); ARTERIAL BLOOD GAS BASE EXCESS -5.6 mmol/L (-2-2); ARTERIAL BLOOD GAS PO2 104.6 mmHg (80-100); ARTERIAL BLOOD GAS pH 7.315 (7.350-7.450)
[2023-04-02 07:19] LABS: ALLENS TEST POSITIVE
[2023-04-02 07:20] LABS: VENT RATE 16
[2023-04-02 07:51] LABS: HEMOGLOBIN 10.2 GM/dL (10.7-15.3); LYMPH % 3.7 % (8-40); MCH 30.4 pg (25.7-33.7); MCHC 32.8 g/dl (32.0-36.0); MEAN CELL VOLUME 92.5 fl (80-96); MEAN PLT VOLUME 9.9 fl (7.5-11.1); MONO % 6.8 % (3.8-10.2); NEUT % 89.5 % (42.8-82.8); PLATELET COUNT 85 10^3/uL (134-434); RBC 3.35 M/mm3 (3.60-5.2); WHITE BLOOD COUNT 10.4 K/mm3 (4.0-10.0)
[2023-04-02 07:58] LABS: CHLORIDE 110 mmol/L (98-107); POTASSIUM 4.3 mmol/L (3.5-5.1); SODIUM 143 mmol/L (136-145)
[2023-04-02 08:01] LABS: CALCIUM 7.3 mg/dL (8.5-10.1)
[2023-04-02 08:02] LABS: ANION GAP 11 MMOL/L (8-16); CO2 22 mmol/L (21-32); GLUCOSE,RANDOM 111 mg/dL (74-106); MAGNESIUM 1.9 mg/dL (1.8-2.4)
[2023-04-02 08:05] LABS: CREATININE 4.6 mg/dL (0.55-1.3); PHOSPHOROUS 5.1 mg/dL (2.5-4.9)
[2023-04-02] MEDS: ALBUTEROL SO4 2.5/IPRATROPIUM 0.5 INH SOL 3 ML VIAL.NEB. NEB SCH ×4 (08:17→20:05)
[2023-04-02] MEDS: PROPOFOL 1,000,000 MCG/100 ML VIAL IVPB SCH ×2 (08:18→21:02)
[2023-04-02 08:27] LABS: BLOOD UREA NITROGEN 117.2 mg/dL (7-18)
[2023-04-02] MEDS: methylPREDNISolone NA SUCC 40 MG/1 ML VIAL IVPUSH SCH (09:27)
[2023-04-02] MEDS: LORazepam 2 MG/ML SDV VIAL IVPUSH PRN (09:27)
[2023-04-02] MEDS: PANTOPRAZOLE SODIUM 40 MG VIAL IVPUSH SCH (09:27)
[2023-04-02] MEDS: MUPIROCIN 2% TOPICAL OINTMENT FOR DECOLONIZATION NS SCH ×2 (09:28→21:03)
[2023-04-02] MEDS: BUDESONIDE/FORMETEROL FUMARATE 160/4.5 mcg INHALER IH SCH ×2 (09:34→21:03)
[2023-04-02] MEDS: NICOTINE 14 MG/24 HOURS TOPICAL PATCH TD SCH (11:00)
[2023-04-02] MEDS: FOLIC ACID 1 MG TABLET (FP) PO SCH (12:59)
[2023-04-02] MEDS: THIAMINE HCL 200 MG/2 ML VIAL IVPB SCH (12:59)
[2023-04-02 14:31] VITALS: BMI 21.6
[2023-04-02] MEDS: CHLORHEXIDINE GLUCONATE 4% CLEANSER FOR DECOLONIZATION TP SCH (21:03)
[2023-04-03] MEDS ORDERED: ADENOSINE 6 MG/2 ML VIAL IVPUSH ONE (00:06)
[2023-04-03] MEDS ORDERED: METOPROLOL TARTRATE 5 MG/5 ML VIAL IVPUSH ONE (00:25)
[2023-04-03] MEDS ORDERED: CALCIUM GLUCONATE 10% - 1,000 MG/10 ML VIAL IVPB ONE (00:25)
[2023-04-03] MEDS ORDERED: METOPROLOL TARTRATE 25 MG TABLET (FP) PO SCH (00:30)
[2023-04-03] MEDS: NICARDIPINE 25 MG in DEXTROSE 5%-WATER - 240 ML IVPB SCH (00:47)
[2023-04-03] MEDS: ACETAMINOPHEN 325 MG TABLET (FP) PO PRN ×2 (00:57→20:30)
[2023-04-03] MEDS: HEPARIN NA (PORCINE) 5,000 UNITS/ML 1ML VIAL SQ SCH ×3 (05:09→21:02)
[2023-04-03] MEDS: PROPOFOL 1,000,000 MCG/100 ML VIAL IVPB SCH (05:09)
[2023-04-03 06:42] LABS: HEMATOCRIT 32.1 % (32.4-45.2); HEMOGLOBIN 10.5 GM/dL (10.7-15.3); MCH 30.5 pg (25.7-33.7); MCHC 32.7 g/dl (32.0-36.0); MEAN CELL VOLUME 93.3 fl (80-96); MEAN PLT VOLUME 10.2 fl (7.5-11.1); PLATELET COUNT 86 10^3/uL (134-434); RBC 3.43 M/mm3 (3.60-5.2); RDW 15.3 % (11.6-15.6); WHITE BLOOD COUNT 9.5 K/mm3 (4.0-10.0)
[2023-04-03 06:54] LABS: CHLORIDE 112 mmol/L (98-107); POTASSIUM 4.4 mmol/L (3.5-5.1); SODIUM 144 mmol/L (136-145)
[2023-04-03 06:57] LABS: ANION GAP 11 MMOL/L (8-16); CO2 21 mmol/L (21-32); GLUCOSE,RANDOM 124 mg/dL (74-106)
[2023-04-03 06:58] LABS: ALBUMIN 2.4 g/dl (3.4-5.0)
[2023-04-03 06:59] LABS: CALCIUM 7.4 mg/dL (8.5-10.1); MAGNESIUM 1.9 mg/dL (1.8-2.4)
[2023-04-03 07:00] LABS: PHOSPHOROUS 5.4 mg/dL (2.5-4.9)
[2023-04-03 07:01] LABS: CREATININE 4.4 mg/dL (0.55-1.3); SGOT/AST 19 U/L (15-37)
[2023-04-03 07:02] LABS: BILIRUBIN,TOTAL 0.7 mg/dL (0.2-1); TOT PROT 5.4 g/dl (6.4-8.2)
[2023-04-03 07:03] LABS: ALK PHOS 66 U/L (45-117)
[2023-04-03 07:06] LABS: SGPT/ALT 22 U/L (13-61)
[2023-04-03 07:19] LABS: BLOOD UREA NITROGEN 118.5 mg/dL (7-18)
[2023-04-03] MEDS: ALBUTEROL SO4 2.5/IPRATROPIUM 0.5 INH SOL 3 ML VIAL.NEB. NEB SCH ×4 (08:00→19:47)
[2023-04-03] MEDS ORDERED: SEVELAMER CARBONATE 0.8 GM POWDER PACKET PO SCH (08:00)
[2023-04-03] MEDS: methylPREDNISolone NA SUCC 40 MG/1 ML VIAL IVPUSH SCH (09:02)
[2023-04-03] MEDS: ESCITALOPRAM OXALATE 10 MG TABLET PO SCH (09:02)
[2023-04-03] MEDS: FOLIC ACID 1 MG TABLET (FP) PO SCH (09:02)
[2023-04-03] MEDS: NICOTINE 14 MG/24 HOURS TOPICAL PATCH TD SCH (09:02)
[2023-04-03] MEDS: PANTOPRAZOLE SODIUM 40 MG VIAL IVPUSH SCH (09:02)
[2023-04-03] MEDS: METOPROLOL TARTRATE 25 MG TABLET (FP) PO SCH ×3 (09:02→23:21)
[2023-04-03] MEDS: amLODIPine BESYLATE 5 MG TABLET (FP) PO SCH (09:02)
[2023-04-03] MEDS: THIAMINE HCL 200 MG/2 ML VIAL IVPB SCH (09:03)
[2023-04-03] MEDS: BUDESONIDE/FORMETEROL FUMARATE 160/4.5 mcg INHALER IH SCH ×2 (09:42→21:03)
[2023-04-03] MEDS ORDERED: DEXMEDETOMIDINE PREMIX 400 MCG/100 ML BAG IVPB SCH (09:45)
[2023-04-03 11:06] LABS: ARTERIAL BLD GAS O2 SATURATION 92.3 % (95-98); ARTERIAL BLOOD GAS BASE EXCESS -6.4 mmol/L (-2-2); ARTERIAL BLOOD GAS PO2 66.1 mmHg (80-100); ARTERIAL BLOOD GAS pH 7.344 (7.350-7.450)
[2023-04-03 11:07] LABS: ALLENS TEST POSITIVE
[2023-04-03 11:08] LABS: VENT MODE A/C; VENT RATE 16
[2023-04-03] MEDS: CHLORHEXIDINE GLUCONATE 4% CLEANSER FOR DECOLONIZATION TP SCH (21:03)
[2023-04-04] MEDS: LORazepam 2 MG/ML SDV VIAL IVPUSH PRN (02:39)
[2023-04-04] MEDS: PROPOFOL 1,000,000 MCG/100 ML VIAL IVPB SCH (03:00)
[2023-04-04] MEDS: HEPARIN NA (PORCINE) 5,000 UNITS/ML 1ML VIAL SQ SCH ×3 (05:18→21:15)
[2023-04-04 06:50] LABS: HEMATOCRIT 31.7 % (32.4-45.2); HEMOGLOBIN 10.3 GM/dL (10.7-15.3); MCH 30.3 pg (25.7-33.7); MCHC 32.6 g/dl (32.0-36.0); MEAN CELL VOLUME 93.1 fl (80-96); MEAN PLT VOLUME 9.7 fl (7.5-11.1); PLATELET COUNT 84 10^3/uL (134-434); RBC 3.41 M/mm3 (3.60-5.2); RDW 15.3 % (11.6-15.6); WHITE BLOOD COUNT 9.6 K/mm3 (4.0-10.0)
[2023-04-04 07:07] LABS: CHLORIDE 115 mmol/L (98-107); POTASSIUM 4.5 mmol/L (3.5-5.1); SODIUM 146 mmol/L (136-145)
[2023-04-04 07:10] LABS: CALCIUM 8.1 mg/dL (8.5-10.1)
[2023-04-04 07:11] LABS: ALBUMIN 2.4 g/dl (3.4-5.0); ANION GAP 9 MMOL/L (8-16); CO2 22 mmol/L (21-32); GLUCOSE,RANDOM 103 mg/dL (74-106); MAGNESIUM 2.1 mg/dL (1.8-2.4)
[2023-04-04 07:14] LABS: PHOSPHOROUS 5.1 mg/dL (2.5-4.9); SGOT/AST 18 U/L (15-37); SGPT/ALT 24 U/L (13-61)
[2023-04-04 07:16] LABS: BILIRUBIN,TOTAL 0.5 mg/dL (0.2-1); TOT PROT 5.6 g/dl (6.4-8.2)
[2023-04-04 07:17] LABS: ALK PHOS 75 U/L (45-117)
[2023-04-04 07:19] LABS: BLOOD UREA NITROGEN 121.2 mg/dL (7-18)
[2023-04-04] MEDS: ALBUTEROL SO4 2.5/IPRATROPIUM 0.5 INH SOL 3 ML VIAL.NEB. NEB SCH (08:30)
[2023-04-04 08:35] LABS: ANISOCYTOSIS 1+; MACROCYTOSIS 0
[2023-04-04] MEDS: THIAMINE HCL 200 MG/2 ML VIAL IVPB SCH (09:03)
[2023-04-04] MEDS: BUDESONIDE/FORMETEROL FUMARATE 160/4.5 mcg INHALER IH SCH ×2 (09:04→21:16)
[2023-04-04] MEDS: PANTOPRAZOLE SODIUM 40 MG VIAL IVPUSH SCH (09:04)
[2023-04-04] MEDS: methylPREDNISolone NA SUCC 40 MG/1 ML VIAL IVPUSH SCH (09:04)
[2023-04-04] MEDS: NICOTINE 14 MG/24 HOURS TOPICAL PATCH TD SCH (09:04)
[2023-04-04] MEDS: FOLIC ACID 1 MG TABLET (FP) PO SCH (09:30)
[2023-04-04] MEDS: ESCITALOPRAM OXALATE 10 MG TABLET PO SCH (09:30)
[2023-04-04] MEDS: amLODIPine BESYLATE 5 MG TABLET (FP) PO SCH (09:30)
[2023-04-04] MEDS: METOPROLOL TARTRATE 25 MG TABLET (FP) PO SCH ×3 (09:30→23:05)
[2023-04-04] MEDS: IPRATROPIUM BR 0.02% 0.5 MG/2.5 ML VIAL.NEB. NEB SCH ×3 (11:55→20:26)
[2023-04-04] MEDS: LEVALBUTEROL HCL 0.63 MG/3 ML VIAL.NEB. IH SCH ×2 (14:35→20:27)
[2023-04-04] MEDS ORDERED: DEXMEDETOMIDINE PREMIX 400 MCG/100 ML BAG IVPB ONE (14:58)
[2023-04-04] MEDS: DEXMEDETOMIDINE PREMIX 400 MCG/100 ML BAG IVPB SCH (15:32)
[2023-04-04] MEDS: CHLORHEXIDINE GLUCONATE 4% CLEANSER FOR DECOLONIZATION TP SCH (21:15)
[2023-04-04] MEDS: ACETAMINOPHEN 325 MG TABLET (FP) PO PRN (22:51)
[2023-04-05] MEDS: PROPOFOL 1,000,000 MCG/100 ML VIAL IVPB SCH ×3 (02:22→20:23)
[2023-04-05] MEDS: HEPARIN NA (PORCINE) 5,000 UNITS/ML 1ML VIAL SQ SCH ×3 (05:22→21:20)
[2023-04-05] MEDS: IPRATROPIUM BR 0.02% 0.5 MG/2.5 ML VIAL.NEB. NEB SCH ×4 (08:26→20:26)
[2023-04-05] MEDS: LEVALBUTEROL HCL 0.63 MG/3 ML VIAL.NEB. IH SCH ×3 (08:26→20:26)
[2023-04-05] MEDS: METOPROLOL TARTRATE 25 MG TABLET (FP) PO SCH ×2 (09:00→16:51)
[2023-04-05] MEDS: PANTOPRAZOLE SODIUM 40 MG VIAL IVPUSH SCH (09:14)
[2023-04-05] MEDS: DEXMEDETOMIDINE PREMIX 400 MCG/100 ML BAG IVPB SCH (09:14)
[2023-04-05] MEDS: methylPREDNISolone NA SUCC 40 MG/1 ML VIAL IVPUSH SCH (09:15)
[2023-04-05] MEDS: FOLIC ACID 1 MG TABLET (FP) PO SCH (09:15)
[2023-04-05] MEDS: ESCITALOPRAM OXALATE 10 MG TABLET PO SCH (09:15)
[2023-04-05] MEDS: NICOTINE 14 MG/24 HOURS TOPICAL PATCH TD SCH (09:16)
[2023-04-05] MEDS: THIAMINE HCL 200 MG/2 ML VIAL IVPB SCH (09:17)
[2023-04-05] MEDS: amLODIPine BESYLATE 5 MG TABLET (FP) PO SCH (09:17)
[2023-04-05] MEDS: BUDESONIDE/FORMETEROL FUMARATE 160/4.5 mcg INHALER IH SCH ×2 (10:10→21:21)
[2023-04-05 10:28] LABS: HEMATOCRIT 29.8 % (32.4-45.2); HEMOGLOBIN 9.7 GM/dL (10.7-15.3); MCH 30.4 pg (25.7-33.7); MCHC 32.7 g/dl (32.0-36.0); MEAN PLT VOLUME 10.2 fl (7.5-11.1); PLATELET COUNT 103 10^3/uL (134-434); RBC 3.21 M/mm3 (3.60-5.2); RDW 14.5 % (11.6-15.6); WHITE BLOOD COUNT 10.2 K/mm3 (4.0-10.0)
[2023-04-05 10:49] LABS: CHLORIDE 116 mmol/L (98-107); POTASSIUM 4.5 mmol/L (3.5-5.1); SODIUM 147 mmol/L (136-145)
[2023-04-05 10:53] LABS: GLUCOSE,RANDOM 119 mg/dL (74-106)
[2023-04-05 10:54] LABS: ALBUMIN 2.2 g/dl (3.4-5.0)
[2023-04-05 10:57] LABS: CREATININE 3.6 mg/dL (0.55-1.3); MAGNESIUM 2.2 mg/dL (1.8-2.4); PHOSPHOROUS 4.2 mg/dL (2.5-4.9); SGOT/AST 18 U/L (15-37); SGPT/ALT 25 U/L (13-61)
[2023-04-05 10:58] LABS: BILIRUBIN,TOTAL 0.5 mg/dL (0.2-1); TOT PROT 5.6 g/dl (6.4-8.2)
[2023-04-05 10:59] LABS: ALK PHOS 80 U/L (45-117)
[2023-04-05 11:00] LABS: ANION GAP 8 MMOL/L (8-16); CO2 23 mmol/L (21-32)
[2023-04-05] MEDS ORDERED: POLYETHYLENE GLYCOL (HEALTHYLAX) 3350 17 GM PACKET PO ONE (13:30)
[2023-04-05] MEDS: CHLORHEXIDINE GLUCONATE 4% CLEANSER FOR DECOLONIZATION TP SCH (21:20)
[2023-04-06] MEDS: METOPROLOL TARTRATE 25 MG TABLET (FP) PO SCH ×4 (00:35→23:10)
[2023-04-06] MEDS: ACETAMINOPHEN 325 MG TABLET (FP) PO PRN (02:52)
[2023-04-06] MEDS: DEXMEDETOMIDINE PREMIX 400 MCG/100 ML BAG IVPB SCH ×5 (02:52→21:01)
[2023-04-06] MEDS: HEPARIN NA (PORCINE) 5,000 UNITS/ML 1ML VIAL SQ SCH ×3 (05:27→21:01)
[2023-04-06 06:31] LABS: ARTERIAL BLD GAS O2 SATURATION 98.6 % (95-98); ARTERIAL BLOOD GAS BASE EXCESS -5.7 mmol/L (-2-2); ARTERIAL BLOOD GAS pH 7.285 (7.350-7.450)
[2023-04-06 06:35] LABS: VENT MODE A/C; VENT RATE 16
[2023-04-06 07:04] LABS: EOS % 0.5 % (0-4.5); HEMATOCRIT 29.6 % (32.4-45.2); HEMOGLOBIN 9.5 GM/dL (10.7-15.3); LYMPH % 3.7 % (8-40); MCH 30.2 pg (25.7-33.7); MEAN CELL VOLUME 94.4 fl (80-96); MEAN PLT VOLUME 10.5 fl (7.5-11.1); MONO % 8.5 % (3.8-10.2); NEUT % 87.3 % (42.8-82.8); PLATELET COUNT 113 10^3/uL (134-434); RBC 3.13 M/mm3 (3.60-5.2); RDW 14.9 % (11.6-15.6); WHITE BLOOD COUNT 11.8 K/mm3 (4.0-10.0)
[2023-04-06 07:35] LABS: CHLORIDE 116 mmol/L (98-107); POTASSIUM 5.4 mmol/L (3.5-5.1); SODIUM 146 mmol/L (136-145)
[2023-04-06 07:37] LABS: ANION GAP 7 MMOL/L (8-16); CALCIUM 8.6 mg/dL (8.5-10.1); CO2 23 mmol/L (21-32); GLUCOSE,RANDOM 121 mg/dL (74-106)
[2023-04-06 07:38] LABS: ALBUMIN 2.3 g/dl (3.4-5.0); MAGNESIUM 2.4 mg/dL (1.8-2.4)
[2023-04-06 07:40] LABS: CREATININE 3.5 mg/dL (0.55-1.3); PHOSPHOROUS 5.1 mg/dL (2.5-4.9); SGPT/ALT 27 U/L (13-61)
[2023-04-06 07:42] LABS: BILIRUBIN,TOTAL 0.4 mg/dL (0.2-1); TOT PROT 5.7 g/dl (6.4-8.2)
[2023-04-06 07:43] LABS: ALK PHOS 83 U/L (45-117)
[2023-04-06 07:47] LABS: BLOOD UREA NITROGEN 129.3 mg/dL (7-18); SGOT/AST 13 U/L (15-37)
[2023-04-06] MEDS: LEVALBUTEROL HCL 0.63 MG/3 ML VIAL.NEB. IH SCH ×3 (08:25→21:15)
[2023-04-06] MEDS: IPRATROPIUM BR 0.02% 0.5 MG/2.5 ML VIAL.NEB. NEB SCH ×4 (08:25→20:15)
[2023-04-06] MEDS: amLODIPine BESYLATE 5 MG TABLET (FP) PO SCH (09:12)
[2023-04-06] MEDS: ESCITALOPRAM OXALATE 10 MG TABLET PO SCH (09:12)
[2023-04-06] MEDS: FOLIC ACID 1 MG TABLET (FP) PO SCH (09:12)
[2023-04-06] MEDS: THIAMINE HCL 200 MG/2 ML VIAL IVPB SCH (09:12)
[2023-04-06] MEDS: methylPREDNISolone NA SUCC 40 MG/1 ML VIAL IVPUSH SCH (09:13)
[2023-04-06] MEDS: PANTOPRAZOLE SODIUM 40 MG VIAL IVPUSH SCH (09:13)
[2023-04-06] MEDS: BUDESONIDE/FORMETEROL FUMARATE 160/4.5 mcg INHALER IH SCH ×2 (09:25→21:02)
[2023-04-06] MEDS: NICOTINE 14 MG/24 HOURS TOPICAL PATCH TD SCH (09:25)
[2023-04-06] MEDS: PROPOFOL 1,000,000 MCG/100 ML VIAL IVPB SCH ×2 (11:59→13:08)
[2023-04-06] MEDS ORDERED: diazePAM CARPU-JECT 10 MG/2 ML DISP.SYRIN IVPUSH ONE (13:00)
[2023-04-06] MEDS ORDERED: SODIUM ZIRCONIUM CYCLOSILICATE (LOKELMA) 5 GM PACKET PO SCH (17:15)
[2023-04-06] MEDS: CHLORHEXIDINE GLUCONATE 4% CLEANSER FOR DECOLONIZATION TP SCH (21:02)
[2023-04-06 21:41] LABS: CHLORIDE 117 mmol/L (98-107); POTASSIUM 5.4 mmol/L (3.5-5.1); SODIUM 147 mmol/L (136-145)
[2023-04-06 21:43] LABS: CALCIUM 8.3 mg/dL (8.5-10.1)
[2023-04-06 21:44] LABS: ALBUMIN 2.1 g/dl (3.4-5.0); ANION GAP 6 MMOL/L (8-16); CO2 24 mmol/L (21-32); GLUCOSE,RANDOM 107 mg/dL (74-106); MAGNESIUM 2.2 mg/dL (1.8-2.4)
[2023-04-06 21:47] LABS: CREATININE 3.4 mg/dL (0.55-1.3); PHOSPHOROUS 4.6 mg/dL (2.5-4.9); SGOT/AST 16 U/L (15-37); SGPT/ALT 25 U/L (13-61)
[2023-04-06 21:49] LABS: BILIRUBIN,TOTAL 0.4 mg/dL (0.2-1); TOT PROT 5.4 g/dl (6.4-8.2)
[2023-04-06 21:50] LABS: ALK PHOS 81 U/L (45-117)
[2023-04-06 21:53] LABS: BLOOD UREA NITROGEN 131.3 mg/dL (7-18)
[2023-04-07] MEDS: DEXMEDETOMIDINE PREMIX 400 MCG/100 ML BAG IVPB SCH ×2 (06:15→15:48)
[2023-04-07] MEDS: PROPOFOL 1,000,000 MCG/100 ML VIAL IVPB SCH ×2 (06:15→14:49)
[2023-04-07] MEDS: HEPARIN NA (PORCINE) 5,000 UNITS/ML 1ML VIAL SQ SCH ×3 (06:17→21:16)
[2023-04-07 07:15] LABS: HEMATOCRIT 28.2 % (32.4-45.2); MCH 30.1 pg (25.7-33.7); MEAN PLT VOLUME 10.7 fl (7.5-11.1); PLATELET COUNT 126 10^3/uL (134-434); RDW 14.9 % (11.6-15.6); WHITE BLOOD COUNT 12.6 K/mm3 (4.0-10.0)
[2023-04-07 07:46] LABS: CHLORIDE 116 mmol/L (98-107); POTASSIUM 5.1 mmol/L (3.5-5.1); SODIUM 146 mmol/L (136-145)
[2023-04-07 07:48] LABS: ALBUMIN 2.1 g/dl (3.4-5.0); ANION GAP 6 MMOL/L (8-16); CALCIUM 8.5 mg/dL (8.5-10.1); CO2 24 mmol/L (21-32); GLUCOSE,RANDOM 114 mg/dL (74-106)
[2023-04-07 07:51] LABS: CREATININE 3.5 mg/dL (0.55-1.3); SGOT/AST 13 U/L (15-37); SGPT/ALT 23 U/L (13-61)
[2023-04-07 07:53] LABS: BILIRUBIN,TOTAL 0.4 mg/dL (0.2-1); TOT PROT 5.6 g/dl (6.4-8.2)
[2023-04-07 07:54] LABS: ALK PHOS 87 U/L (45-117)
[2023-04-07 08:05] LABS: BLOOD UREA NITROGEN 134.3 mg/dL (7-18)
[2023-04-07] MEDS: IPRATROPIUM BR 0.02% 0.5 MG/2.5 ML VIAL.NEB. NEB SCH ×3 (08:21→20:08)
[2023-04-07] MEDS: LEVALBUTEROL HCL 0.63 MG/3 ML VIAL.NEB. IH SCH ×3 (08:22→20:08)
[2023-04-07] MEDS ORDERED: VORICONAZOLE 200 MG PO SCH ×2 (10:00→22:00)
[2023-04-07] MEDS: PANTOPRAZOLE SODIUM 40 MG VIAL IVPUSH SCH (10:07)
[2023-04-07] MEDS: amLODIPine BESYLATE 5 MG TABLET (FP) PO SCH (10:07)
[2023-04-07] MEDS: THIAMINE HCL 200 MG/2 ML VIAL IVPB SCH (10:08)
[2023-04-07] MEDS: METOPROLOL TARTRATE 25 MG TABLET (FP) PO SCH ×3 (10:08→23:02)
[2023-04-07] MEDS: FOLIC ACID 1 MG TABLET (FP) PO SCH (10:08)
[2023-04-07] MEDS ORDERED: PROPOFOL 200 MG/20 ML VIAL IVPUSH STA (10:19)
[2023-04-07] MEDS ORDERED: MIDAZOLAM HCL 5 MG/1 ML Single Dose Vial IVPUSH STA (10:19)
[2023-04-07] MEDS ORDERED: NOREPINEPHRINE BITARTRATE 4 MG/4 ML ML IV ONE (10:46)
[2023-04-07] MEDS: NICOTINE 14 MG/24 HOURS TOPICAL PATCH TD SCH (11:47)
[2023-04-07 12:17] LABS: ALPRAZOLAM, UR Negative (Cutoff=100); BENZODIAZEPINES, UR See Final Results ng/mL (Cutoff=200); CANNABINOIDS, URINE Negative ng/mL (Cutoff=20); CLONAZEPAM, UR Negative (Cutoff=100); CODEINE, URINE Negative (Cutoff=300); FLURAZEPAM, UR Negative (Cutoff=100); LORAZEPAM, UR Negative (Cutoff=100); METHADONE, URINE Negative ng/mL (Cutoff=300); MORPHINE, URINE Positive (.); OPIATES, UR See Final Results ng/mL (Cutoff=300); OXAZEPAM, UR Negative (Cutoff=100); PHENCYCLIDINE, URINE Negative ng/mL (Cutoff=25); TRIAZOLAM, UR Negative (Cutoff=100)
[2023-04-07] MEDS: VORICONAZOLE 200 MG PO SCH ×2 (12:58→21:48)
[2023-04-07] MEDS: ACETAMINOPHEN 325 MG TABLET (FP) PO PRN (18:21)
[2023-04-07] MEDS: CHLORHEXIDINE GLUCONATE 4% CLEANSER FOR DECOLONIZATION TP SCH (21:16)
[2023-04-08] MEDS: DEXMEDETOMIDINE PREMIX 400 MCG/100 ML BAG IVPB SCH ×3 (01:00→21:43)
[2023-04-08] MEDS: HEPARIN NA (PORCINE) 5,000 UNITS/ML 1ML VIAL SQ SCH ×3 (05:14→21:40)
[2023-04-08] MEDS: PROPOFOL 1,000,000 MCG/100 ML VIAL IVPB SCH ×4 (05:16→21:43)
[2023-04-08] MEDS: METOPROLOL TARTRATE 25 MG TABLET (FP) PO SCH ×3 (07:13→23:24)
[2023-04-08] MEDS: IPRATROPIUM BR 0.02% 0.5 MG/2.5 ML VIAL.NEB. NEB SCH ×4 (07:15→19:59)
[2023-04-08] MEDS: LEVALBUTEROL HCL 0.63 MG/3 ML VIAL.NEB. IH SCH ×3 (07:15→20:01)
[2023-04-08 07:43] LABS: HEMATOCRIT 27.4 % (32.4-45.2); HEMOGLOBIN 8.7 GM/dL (10.7-15.3); MCH 30.1 pg (25.7-33.7); MCHC 31.7 g/dl (32.0-36.0); MEAN PLT VOLUME 10.4 fl (7.5-11.1); PLATELET COUNT 134 10^3/uL (134-434); RBC 2.89 M/mm3 (3.60-5.2); RDW 15.2 % (11.6-15.6); WHITE BLOOD COUNT 12.8 K/mm3 (4.0-10.0)
[2023-04-08 07:51] LABS: CHLORIDE 114 mmol/L (98-107); POTASSIUM 5.2 mmol/L (3.5-5.1); SODIUM 144 mmol/L (136-145)
[2023-04-08 07:56] LABS: CALCIUM 8.2 mg/dL (8.5-10.1)
[2023-04-08] MEDS ORDERED: SODIUM ZIRCONIUM CYCLOSILICATE (LOKELMA) 5 GM PACKET NGT SCH ×2 (07:56→10:00)
[2023-04-08 07:57] LABS: ALBUMIN 2.1 g/dl (3.4-5.0); ANION GAP 8 MMOL/L (8-16); CO2 22 mmol/L (21-32); GLUCOSE,RANDOM 117 mg/dL (74-106); MAGNESIUM 2.3 mg/dL (1.8-2.4)
[2023-04-08 08:00] LABS: CREATININE 3.4 mg/dL (0.55-1.3); PHOSPHOROUS 6.1 mg/dL (2.5-4.9); SGOT/AST 16 U/L (15-37); SGPT/ALT 26 U/L (13-61)
[2023-04-08 08:01] LABS: BILIRUBIN,TOTAL 0.4 mg/dL (0.2-1)
[2023-04-08 08:02] LABS: TOT PROT 5.7 g/dl (6.4-8.2)
[2023-04-08 08:03] LABS: ALK PHOS 86 U/L (45-117)
[2023-04-08 08:11] LABS: BLOOD UREA NITROGEN 146.4 mg/dL (7-18)
[2023-04-08] MEDS: VORICONAZOLE 200 MG PO SCH ×2 (09:09→21:41)
[2023-04-08] MEDS: PANTOPRAZOLE SODIUM 40 MG VIAL IVPUSH SCH (09:09)
[2023-04-08] MEDS: NICOTINE 14 MG/24 HOURS TOPICAL PATCH TD SCH (09:09)
[2023-04-08] MEDS: amLODIPine BESYLATE 5 MG TABLET (FP) PO SCH (09:09)
[2023-04-08] MEDS: THIAMINE HCL 200 MG/2 ML VIAL IVPB SCH (09:09)
[2023-04-08] MEDS: FOLIC ACID 1 MG TABLET (FP) PO SCH (09:09)
[2023-04-08 09:17] LABS: ANISOCYTOSIS 1+; MACROCYTOSIS 0; OVALOCYTE 1+
[2023-04-08] MEDS: CHLORHEXIDINE GLUCONATE 4% CLEANSER FOR DECOLONIZATION TP SCH (21:42)
[2023-04-08] MEDS: ACETAMINOPHEN 325 MG TABLET (FP) PO PRN (21:43)
[2023-04-09] MEDS: HEPARIN NA (PORCINE) 5,000 UNITS/ML 1ML VIAL SQ SCH ×3 (05:54→21:17)
[2023-04-09] MEDS: DEXMEDETOMIDINE PREMIX 400 MCG/100 ML BAG IVPB SCH ×2 (05:55→17:30)
[2023-04-09] MEDS: PROPOFOL 1,000,000 MCG/100 ML VIAL IVPB SCH ×2 (05:55→17:25)
[2023-04-09 06:42] LABS: HEMATOCRIT 27.1 % (32.4-45.2); HEMOGLOBIN 8.5 GM/dL (10.7-15.3); MCH 29.9 pg (25.7-33.7); MCHC 31.5 g/dl (32.0-36.0); MEAN PLT VOLUME 10.4 fl (7.5-11.1); PLATELET COUNT 139 10^3/uL (134-434); RBC 2.86 M/mm3 (3.60-5.2); RDW 15.4 % (11.6-15.6); WHITE BLOOD COUNT 13.9 K/mm3 (4.0-10.0)
[2023-04-09 06:52] LABS: CHLORIDE 113 mmol/L (98-107); POTASSIUM 5.5 mmol/L (3.5-5.1); SODIUM 143 mmol/L (136-145)
[2023-04-09 06:54] LABS: ANION GAP 10 MMOL/L (8-16); CALCIUM 8.3 mg/dL (8.5-10.1); CO2 21 mmol/L (21-32); GLUCOSE,RANDOM 122 mg/dL (74-106); MAGNESIUM 2.3 mg/dL (1.8-2.4)
[2023-04-09 06:57] LABS: CREATININE 3.4 mg/dL (0.55-1.3); SGOT/AST 21 U/L (15-37); SGPT/ALT 25 U/L (13-61)
[2023-04-09 06:59] LABS: BILIRUBIN,TOTAL 0.4 mg/dL (0.2-1); TOT PROT 5.8 g/dl (6.4-8.2)
[2023-04-09 07:00] LABS: ALK PHOS 93 U/L (45-117)
[2023-04-09 07:20] LABS: BLOOD UREA NITROGEN 156.8 mg/dL (7-18)
[2023-04-09] MEDS: LEVALBUTEROL HCL 0.63 MG/3 ML VIAL.NEB. IH SCH ×3 (07:30→20:54)
[2023-04-09] MEDS: IPRATROPIUM BR 0.02% 0.5 MG/2.5 ML VIAL.NEB. NEB SCH ×4 (07:30→20:53)
[2023-04-09 09:02] LABS: ANISOCYTOSIS 0; HELMET CELLS 0; HOWELL-JOLLY BODIES 0; MACROCYTOSIS 0; OVALOCYTE 0; ROULEAU 0; SICKELED CELLS 0; TARGET CELLS 0; TEAR DROP CELLS 0; TOXIC GRANULATION 0
[2023-04-09] MEDS ORDERED: SODIUM ZIRCONIUM CYCLOSILICATE (LOKELMA) 5 GM PACKET PO ONE (09:20)
[2023-04-09] MEDS: NICOTINE 14 MG/24 HOURS TOPICAL PATCH TD SCH (09:32)
[2023-04-09] MEDS: FOLIC ACID 1 MG TABLET (FP) PO SCH (09:32)
[2023-04-09] MEDS: THIAMINE HCL 200 MG/2 ML VIAL IVPB SCH (09:32)
[2023-04-09] MEDS: PANTOPRAZOLE SODIUM 40 MG VIAL IVPUSH SCH (09:32)
[2023-04-09] MEDS: METOPROLOL TARTRATE 25 MG TABLET (FP) PO SCH ×3 (09:33→23:40)
[2023-04-09] MEDS: VORICONAZOLE 200 MG PO SCH ×2 (09:33→21:19)
[2023-04-09] MEDS: amLODIPine BESYLATE 5 MG TABLET (FP) PO SCH (09:33)
[2023-04-09] MEDS ORDERED: SENNOSIDES 8.6MG TABLET (FP) PO PRN (14:00)
[2023-04-09] MEDS: CHLORHEXIDINE GLUCONATE 4% CLEANSER FOR DECOLONIZATION TP SCH (21:17)
[2023-04-09] MEDS: SENNOSIDES 8.6MG TABLET (FP) PO SCH (21:17)
[2023-04-09] MEDS: POLYETHYLENE GLYCOL (HEALTHYLAX) 3350 17 GM PACKET PO SCH (21:17)
[2023-04-10] MEDS: HEPARIN NA (PORCINE) 5,000 UNITS/ML 1ML VIAL SQ SCH ×3 (06:02→21:49)
[2023-04-10 06:50] LABS: BASO % 0.6 % (0-2.0); EOS % 0.8 % (0-4.5); HEMATOCRIT 26.2 % (32.4-45.2); HEMOGLOBIN 8.2 GM/dL (10.7-15.3); LYMPH % 4.5 % (8-40); MCH 29.9 pg (25.7-33.7); MCHC 31.3 g/dl (32.0-36.0); MEAN CELL VOLUME 95.6 fl (80-96); MEAN PLT VOLUME 10.1 fl (7.5-11.1); MONO % 5.7 % (3.8-10.2); NEUT % 88.4 % (42.8-82.8); PLATELET COUNT 136 10^3/uL (134-434); RBC 2.74 M/mm3 (3.60-5.2); RDW 15.1 % (11.6-15.6); WHITE BLOOD COUNT 16.3 K/mm3 (4.0-10.0)
[2023-04-10 07:10] LABS: CHLORIDE 114 mmol/L (98-107); POTASSIUM 5.3 mmol/L (3.5-5.1); SODIUM 144 mmol/L (136-145)
[2023-04-10 07:11] LABS: CALCIUM 8.3 mg/dL (8.5-10.1)
[2023-04-10 07:12] LABS: ANION GAP 10 MMOL/L (8-16); CO2 20 mmol/L (21-32); GLUCOSE,RANDOM 109 mg/dL (74-106); MAGNESIUM 2.3 mg/dL (1.8-2.4)
[2023-04-10 07:14] LABS: SGPT/ALT 26 U/L (13-61)
[2023-04-10 07:15] LABS: CREATININE 3.6 mg/dL (0.55-1.3); PHOSPHOROUS 7.7 mg/dL (2.5-4.9); SGOT/AST 22 U/L (15-37)
[2023-04-10 07:16] LABS: BILIRUBIN,TOTAL 0.4 mg/dL (0.2-1)
[2023-04-10 07:17] LABS: ALK PHOS 91 U/L (45-117)
[2023-04-10 08:00] LABS: BLOOD UREA NITROGEN > 150.0 mg/dL (7-18)
[2023-04-10] MEDS: LEVALBUTEROL HCL 0.63 MG/3 ML VIAL.NEB. IH SCH ×3 (08:20→20:33)
[2023-04-10] MEDS: IPRATROPIUM BR 0.02% 0.5 MG/2.5 ML VIAL.NEB. NEB SCH ×4 (08:20→20:32)
[2023-04-10] MEDS: POLYETHYLENE GLYCOL (HEALTHYLAX) 3350 17 GM PACKET PO SCH ×2 (10:13→21:50)
[2023-04-10] MEDS: PANTOPRAZOLE SODIUM 40 MG VIAL IVPUSH SCH (10:13)
[2023-04-10] MEDS: THIAMINE HCL 200 MG/2 ML VIAL IVPB SCH (10:13)
[2023-04-10] MEDS: METOPROLOL TARTRATE 25 MG TABLET (FP) PO SCH ×3 (10:13→23:43)
[2023-04-10] MEDS: FOLIC ACID 1 MG TABLET (FP) PO SCH (10:13)
[2023-04-10] MEDS: amLODIPine BESYLATE 5 MG TABLET (FP) PO SCH (10:14)
[2023-04-10] MEDS: VORICONAZOLE 200 MG PO SCH ×2 (10:14→21:51)
[2023-04-10] MEDS: NICOTINE 14 MG/24 HOURS TOPICAL PATCH TD SCH (10:14)
[2023-04-10] MEDS: SODIUM ZIRCONIUM CYCLOSILICATE (LOKELMA) 5 GM PACKET PO SCH (13:47)
[2023-04-10] MEDS: PROPOFOL 1,000,000 MCG/100 ML VIAL IVPB SCH ×2 (14:14→22:14)
[2023-04-10] MEDS: DEXMEDETOMIDINE PREMIX 400 MCG/100 ML BAG IVPB SCH (16:32)
[2023-04-10 21:01] LABS: BASO % 0.4 % (0-2.0); EOS % 0.5 % (0-4.5); HEMATOCRIT 27.6 % (32.4-45.2); LYMPH % 2.5 % (8-40); MCH 30.4 pg (25.7-33.7); MCHC 32.5 g/dl (32.0-36.0); MEAN CELL VOLUME 93.6 fl (80-96); MEAN PLT VOLUME 10.3 fl (7.5-11.1); MONO % 5.2 % (3.8-10.2); NEUT % 91.4 % (42.8-82.8); PLATELET COUNT 138 10^3/uL (134-434); RBC 2.95 M/mm3 (3.60-5.2); RDW 15.5 % (11.6-15.6); WHITE BLOOD COUNT 17.9 K/mm3 (4.0-10.0)
[2023-04-10] MEDS: CHLORHEXIDINE GLUCONATE 4% CLEANSER FOR DECOLONIZATION TP SCH (21:46)
[2023-04-10] MEDS: SENNOSIDES 8.6MG TABLET (FP) PO SCH (21:50)
[2023-04-11] MEDS: HEPARIN NA (PORCINE) 5,000 UNITS/ML 1ML VIAL SQ SCH ×3 (06:14→21:10)
[2023-04-11 07:05] LABS: BASO % 0.9 % (0-2.0); EOS % 0.9 % (0-4.5); HEMOGLOBIN 9.5 GM/dL (10.7-15.3); LYMPH % 4.2 % (8-40); MCH 31.5 pg (25.7-33.7); MCHC 32.9 g/dl (32.0-36.0); MEAN CELL VOLUME 95.8 fl (80-96); MEAN PLT VOLUME 10.3 fl (7.5-11.1); MONO % 5.3 % (3.8-10.2); NEUT % 88.7 % (42.8-82.8); PLATELET COUNT 129 10^3/uL (134-434); RBC 3.03 M/mm3 (3.60-5.2); RDW 15.2 % (11.6-15.6); WHITE BLOOD COUNT 14.5 K/mm3 (4.0-10.0)
[2023-04-11 07:23] LABS: CHLORIDE 107 mmol/L (98-107); POTASSIUM 5.4 mmol/L (3.5-5.1); SODIUM 139 mmol/L (136-145)
[2023-04-11 07:27] LABS: ANION GAP 11 MMOL/L (8-16); CALCIUM 8.3 mg/dL (8.5-10.1); CO2 21 mmol/L (21-32); GLUCOSE,RANDOM 124 mg/dL (74-106); MAGNESIUM 2.3 mg/dL (1.8-2.4)
[2023-04-11 07:29] LABS: CREATININE 3.6 mg/dL (0.55-1.3)
[2023-04-11 07:31] LABS: BILIRUBIN,TOTAL 0.6 mg/dL (0.2-1)
[2023-04-11 07:32] LABS: ALK PHOS 90 U/L (45-117)
[2023-04-11 08:02] LABS: SGOT/AST 22 U/L (15-37); SGPT/ALT 30 U/L (13-61); TOT PROT 5.9 g/dl (6.4-8.2)
[2023-04-11] MEDS: LEVALBUTEROL HCL 0.63 MG/3 ML VIAL.NEB. IH SCH ×3 (08:36→20:35)
[2023-04-11] MEDS: IPRATROPIUM BR 0.02% 0.5 MG/2.5 ML VIAL.NEB. NEB SCH ×4 (08:36→20:36)
[2023-04-11] MEDS: METOPROLOL TARTRATE 25 MG TABLET (FP) PO SCH ×3 (09:46→23:16)
[2023-04-11] MEDS: amLODIPine BESYLATE 5 MG TABLET (FP) PO SCH (09:46)
[2023-04-11] MEDS: THIAMINE HCL 200 MG/2 ML VIAL IVPB SCH (09:46)
[2023-04-11] MEDS: FOLIC ACID 1 MG TABLET (FP) PO SCH (09:46)
[2023-04-11] MEDS: PANTOPRAZOLE SODIUM 40 MG VIAL IVPUSH SCH (09:47)
[2023-04-11] MEDS: SODIUM ZIRCONIUM CYCLOSILICATE (LOKELMA) 5 GM PACKET PO SCH (09:47)
[2023-04-11] MEDS: VORICONAZOLE 200 MG PO SCH ×2 (09:47→21:11)
[2023-04-11] MEDS: POLYETHYLENE GLYCOL (HEALTHYLAX) 3350 17 GM PACKET PO SCH ×2 (09:48→21:10)
[2023-04-11] MEDS: NICOTINE 14 MG/24 HOURS TOPICAL PATCH TD SCH (09:48)
[2023-04-11] MEDS: DEXMEDETOMIDINE PREMIX 400 MCG/100 ML BAG IVPB SCH ×2 (10:02→19:40)
[2023-04-11] MEDS: CHLORHEXIDINE GLUCONATE 4% CLEANSER FOR DECOLONIZATION TP SCH (21:10)
[2023-04-11] MEDS: SENNOSIDES 8.6MG TABLET (FP) PO SCH (21:10)
[2023-04-11] MEDS: PROPOFOL 1,000,000 MCG/100 ML VIAL IVPB SCH (22:25)
[2023-04-12] MEDS: PROPOFOL 1,000,000 MCG/100 ML VIAL IVPB SCH ×3 (02:55→17:15)
[2023-04-12] MEDS: DEXMEDETOMIDINE PREMIX 400 MCG/100 ML BAG IVPB SCH ×2 (05:14→17:15)
[2023-04-12] MEDS: HEPARIN NA (PORCINE) 5,000 UNITS/ML 1ML VIAL SQ SCH ×3 (05:15→21:47)
[2023-04-12 06:26] LABS: BASO % 1.5 % (0-2.0); EOS % 0.4 % (0-4.5); HEMATOCRIT 26.1 % (32.4-45.2); HEMOGLOBIN 8.1 GM/dL (10.7-15.3); LYMPH % 3.8 % (8-40); MCH 29.9 pg (25.7-33.7); MCHC 30.9 g/dl (32.0-36.0); MEAN CELL VOLUME 96.8 fl (80-96); MEAN PLT VOLUME 10.3 fl (7.5-11.1); MONO % 6.4 % (3.8-10.2); NEUT % 87.9 % (42.8-82.8); PLATELET COUNT 131 10^3/uL (134-434); RDW 15.6 % (11.6-15.6); WHITE BLOOD COUNT 13.8 K/mm3 (4.0-10.0)
[2023-04-12 06:51] LABS: CHLORIDE 108 mmol/L (98-107); SODIUM 140 mmol/L (136-145)
[2023-04-12 06:53] LABS: CALCIUM 8.5 mg/dL (8.5-10.1)
[2023-04-12 06:54] LABS: ALBUMIN 1.9 g/dl (3.4-5.0); CO2 20 mmol/L (21-32); GLUCOSE,RANDOM 99 mg/dL (74-106); MAGNESIUM 2.5 mg/dL (1.8-2.4)
[2023-04-12 06:57] LABS: CREATININE 4.2 mg/dL (0.55-1.3); SGOT/AST 21 U/L (15-37); SGPT/ALT 27 U/L (13-61)
[2023-04-12 06:58] LABS: TOT PROT 5.7 g/dl (6.4-8.2)
[2023-04-12 06:59] LABS: BILIRUBIN,TOTAL 0.3 mg/dL (0.2-1)
[2023-04-12 07:00] LABS: ALK PHOS 87 U/L (45-117)
[2023-04-12 07:35] LABS: ANION GAP 11 MMOL/L (8-16); BLOOD UREA NITROGEN 192.6 mg/dL (7-18); PHOSPHOROUS 8.9 mg/dL (2.5-4.9); POTASSIUM 6.7 mmol/L (3.5-5.1)
[2023-04-12] MEDS ORDERED: INSULIN REGULAR HUMAN 100 UNITS/ML *VIAL IVPUSH ONE ×2 (07:37→13:55)
[2023-04-12] MEDS ORDERED: ALBUTEROL SO4 HFA INHALER IH ONE (07:37)
[2023-04-12] MEDS ORDERED: DEXTROSE 50%-WATER 25 GM/50 ML DISP.SYRIN IVPUSH ONE (07:37)
[2023-04-12] MEDS ORDERED: CALCIUM GLUCONATE 10% - 1,000 MG/10 ML VIAL IVPUSH ONE ×2 (07:37→13:55)
[2023-04-12] MEDS: LEVALBUTEROL HCL 0.63 MG/3 ML VIAL.NEB. IH SCH ×3 (07:38→20:28)
[2023-04-12] MEDS: IPRATROPIUM BR 0.02% 0.5 MG/2.5 ML VIAL.NEB. NEB SCH ×4 (07:38→20:27)
[2023-04-12] MEDS ORDERED: ALBUTEROL SULFATE 0.021% (0.63 MG/3 ML) VIAL.NEB NEB ONE (07:41)
[2023-04-12] MEDS ORDERED: ALBUTEROL SO4 0.083% IH SOL 2.5 MG/3 ML VIAL.NEB. NEB ONE (07:53)
[2023-04-12] MEDS: METOPROLOL TARTRATE 25 MG TABLET (FP) PO SCH ×3 (08:03→23:29)
[2023-04-12] MEDS: SODIUM ZIRCONIUM CYCLOSILICATE (LOKELMA) 5 GM PACKET PO SCH ×2 (08:03→20:52)
[2023-04-12] MEDS: POLYETHYLENE GLYCOL (HEALTHYLAX) 3350 17 GM PACKET PO SCH ×2 (09:24→21:47)
[2023-04-12] MEDS: FOLIC ACID 1 MG TABLET (FP) PO SCH (09:24)
[2023-04-12] MEDS: amLODIPine BESYLATE 5 MG TABLET (FP) PO SCH (09:24)
[2023-04-12] MEDS: THIAMINE HCL 200 MG/2 ML VIAL IVPB SCH (09:25)
[2023-04-12] MEDS: PANTOPRAZOLE SODIUM 40 MG VIAL IVPUSH SCH (09:25)
[2023-04-12] MEDS: NICOTINE 14 MG/24 HOURS TOPICAL PATCH TD SCH (09:29)
[2023-04-12] MEDS: VORICONAZOLE 200 MG PO SCH ×2 (09:29→23:00)
[2023-04-12] MEDS ORDERED: SODIUM CHLORIDE 250 ML IV PRN ×2 (09:52→19:44)
[2023-04-12] MEDS ORDERED: SODIUM CHLORIDE 1,000 ML IV STA (10:38)
[2023-04-12 11:02] LABS: EPI CELLS 13 /uL (0-25.1); HYALINE CASTS 5 /uL (0-3.1); PH,URINE 5.5 (5.0-8.0); URINE APPEARANCE CLOUDY; URINE BACTERIA 219 /uL (0-1359); URINE BILIRUBIN NEGATIVE (NEGATIVE); URINE COLOR YELLOW; URINE GLUCOSE (UA) NEGATIVE (NEGATIVE); URINE KETONE NEGATIVE (NEGATIVE); URINE LEUK ESTERASE 2+ (NEGATIVE); URINE NITRITE NEGATIVE (NEGATIVE); URINE PROTEIN 2+ (NEGATIVE); URINE UROBILINOGEN 0.2 mg/dL (0.2-1.0); URINE WBC 424 /uL (0-25.8)
[2023-04-12 11:39] LABS: URINE RBC 829 /uL (0-23.9); YEAST PRESENT (NEGATIVE)
[2023-04-12] MEDS ORDERED: SODIUM CHLORIDE 500 ML IV STA (12:39)
[2023-04-12 13:40] LABS: CHLORIDE 108 mmol/L (98-107); SODIUM 139 mmol/L (136-145)
[2023-04-12 13:42] LABS: CALCIUM 8.6 mg/dL (8.5-10.1)
[2023-04-12 13:43] LABS: CO2 21 mmol/L (21-32); GLUCOSE,RANDOM 82 mg/dL (74-106)
[2023-04-12 13:46] LABS: CREATININE 4.3 mg/dL (0.55-1.3)
[2023-04-12 13:52] LABS: ANION GAP 10 MMOL/L (8-16); BLOOD UREA NITROGEN 193.1 mg/dL (7-18); POTASSIUM 6.9 mmol/L (3.5-5.1)
[2023-04-12] MEDS ORDERED: ALBUTEROL SO4 0.083% IH SOL 2.5 MG/3 ML VIAL.NEB. NEB PRN ×2 (13:55→13:59)
[2023-04-12] MEDS ORDERED: SODIUM ZIRCONIUM CYCLOSILICATE (LOKELMA) 5 GM PACKET PO SCH (14:00)
[2023-04-12] MEDS: DOCUSATE NA 100 MG/10 ML UNIT-DOSE CUPS PO SCH (21:47)
[2023-04-12] MEDS: SENNOSIDES 8.6MG TABLET (FP) PO SCH (21:49)
[2023-04-12] MEDS: CHLORHEXIDINE GLUCONATE 4% CLEANSER FOR DECOLONIZATION TP SCH (21:49)
[2023-04-12] MEDS ORDERED: DOCUSATE SODIUM 100 MG CAPSULE (FP) PO SCH (22:00)
[2023-04-13] MEDS: ACETAMINOPHEN 325 MG TABLET (FP) PO PRN ×2 (02:28→09:38)
[2023-04-13] MEDS: PROPOFOL 1,000,000 MCG/100 ML VIAL IVPB SCH ×3 (02:37→23:06)
[2023-04-13] MEDS: DEXMEDETOMIDINE PREMIX 400 MCG/100 ML BAG IVPB SCH ×4 (03:35→23:07)
[2023-04-13] MEDS: HEPARIN NA (PORCINE) 5,000 UNITS/ML 1ML VIAL SQ SCH ×2 (05:25→21:07)
[2023-04-13] MEDS: LEVALBUTEROL HCL 0.63 MG/3 ML VIAL.NEB. IH SCH ×3 (07:40→19:20)
[2023-04-13] MEDS: IPRATROPIUM BR 0.02% 0.5 MG/2.5 ML VIAL.NEB. NEB SCH ×4 (07:40→19:20)
[2023-04-13 07:44] LABS: BASO % 0.4 % (0-2.0); EOS % 0.3 % (0-4.5); HEMATOCRIT 21.5 % (32.4-45.2); LYMPH % 4.5 % (8-40); MCH 30.7 pg (25.7-33.7); MCHC 32.1 g/dl (32.0-36.0); MEAN CELL VOLUME 95.5 fl (80-96); NEUT % 86.8 % (42.8-82.8); PLATELET COUNT 109 10^3/uL (134-434); RBC 2.25 M/mm3 (3.60-5.2); RDW 15.1 % (11.6-15.6)
[2023-04-13 07:45] LABS: HEMOGLOBIN 6.9 GM/dL (10.7-15.3)
[2023-04-13 08:00] LABS: CHLORIDE 99 mmol/L (98-107); POTASSIUM 5.3 mmol/L (3.5-5.1); SODIUM 137 mmol/L (136-145)
[2023-04-13 08:10] LABS: CALCIUM 7.9 mg/dL (8.5-10.1)
[2023-04-13 08:11] LABS: ALBUMIN 1.8 g/dl (3.4-5.0); ANION GAP 12 MMOL/L (8-16); CO2 26 mmol/L (21-32); GLUCOSE,RANDOM 105 mg/dL (74-106); MAGNESIUM 2.2 mg/dL (1.8-2.4)
[2023-04-13 08:14] LABS: CREATININE 3.6 mg/dL (0.55-1.3); SGOT/AST 22 U/L (15-37); SGPT/ALT 24 U/L (13-61)
[2023-04-13 08:15] LABS: TOT PROT 5.2 g/dl (6.4-8.2)
[2023-04-13 08:16] LABS: BILIRUBIN,TOTAL 0.3 mg/dL (0.2-1)
[2023-04-13 08:17] LABS: ALK PHOS 77 U/L (45-117)
[2023-04-13 08:37] LABS: BLOOD UREA NITROGEN 128.4 mg/dL (7-18)
[2023-04-13] MEDS ORDERED: VANCOMYCIN/WATER 1250 MG 1,250 MG/250 ML BAG IVPB ONE (09:00)
[2023-04-13 09:01] LABS: PHOSPHOROUS 8.9 mg/dL (2.5-4.9)
[2023-04-13] MEDS: DOCUSATE NA 100 MG/10 ML UNIT-DOSE CUPS PO SCH (09:38)
[2023-04-13] MEDS: SODIUM ZIRCONIUM CYCLOSILICATE (LOKELMA) 5 GM PACKET PO SCH (09:38)
[2023-04-13] MEDS: PANTOPRAZOLE SODIUM 40 MG VIAL IVPUSH SCH (09:39)
[2023-04-13] MEDS: NICOTINE 14 MG/24 HOURS TOPICAL PATCH TD SCH (09:39)
[2023-04-13] MEDS: VORICONAZOLE 200 MG PO SCH ×2 (09:39→21:07)
[2023-04-13] MEDS: FOLIC ACID 1 MG TABLET (FP) PO SCH (09:39)
[2023-04-13] MEDS: amLODIPine BESYLATE 5 MG TABLET (FP) PO SCH (09:39)
[2023-04-13] MEDS: THIAMINE HCL 200 MG/2 ML VIAL IVPB SCH (09:40)
[2023-04-13] MEDS: METOPROLOL TARTRATE 25 MG TABLET (FP) PO SCH ×2 (09:40→15:00)
[2023-04-13] MEDS ORDERED: SENNOSIDES 8.6MG TABLET (FP) PO SCH (12:00)
[2023-04-13] MEDS ORDERED: BISACODYL 5 MG TABLET.DR (FP) PO ONE (12:00)
[2023-04-13 12:01] LABS: MCH 30.4 pg (25.7-33.7); MCHC 32.8 g/dl (32.0-36.0); MEAN CELL VOLUME 92.7 fl (80-96); MEAN PLT VOLUME 10.1 fl (7.5-11.1); PLATELET COUNT 111 10^3/uL (134-434); RBC 2.27 M/mm3 (3.60-5.2); RDW 14.8 % (11.6-15.6); WHITE BLOOD COUNT 10.3 K/mm3 (4.0-10.0)
[2023-04-13 12:03] LABS: HEMOGLOBIN 6.9 GM/dL (10.7-15.3)
[2023-04-13] MEDS ORDERED: POLYETHYLENE GLYCOL (HEALTHYLAX) 3350 17 GM PACKET PO SCH (14:00)
[2023-04-13] MEDS ORDERED: SEVELAMER CARBONATE 2.4 GM POWDER PACKET PO ONE (17:25)
[2023-04-13] MEDS ORDERED: SEVELAMER CARBONATE 2.4 GM POWDER PACKET GT ONE (17:25)
[2023-04-13] MEDS: CLINDAMYCIN 600MG PREMIX IVPB 600 MG/50 ML BAG IVPB SCH (17:46)
[2023-04-13] MEDS ORDERED: ACETAMINOPHEN 650 MG/20.3 ML ORAL SOLUTION (CUPS) PO PRN (18:04)
[2023-04-13] MEDS: SODIUM ZIRCONIUM CYCLOSILICATE (LOKELMA) 5 GM PACKET GT SCH (19:36)
[2023-04-13] MEDS: POLYETHYLENE GLYCOL (HEALTHYLAX) 3350 17 GM PACKET GT SCH (21:06)
[2023-04-13] MEDS: DOCUSATE NA 100 MG/10 ML UNIT-DOSE CUPS GT SCH (21:06)
[2023-04-13] MEDS: CHLORHEXIDINE GLUCONATE 4% CLEANSER FOR DECOLONIZATION TP SCH (21:07)
[2023-04-13] MEDS: SENNOSIDES 8.8 MG/5 ML SYRUP GT SCH (21:07)
[2023-04-13] MEDS: VORICONAZOLE 200 MG NR SCH (22:09)
[2023-04-13] MEDS: METOPROLOL TARTRATE 25 MG TABLET (FP) GT SCH (23:03)
[2023-04-13] MEDS: ACETAMINOPHEN 650 MG/20.3 ML ORAL SOLUTION (CUPS) GT PRN (23:18)
[2023-04-14] MEDS: CLINDAMYCIN 600MG PREMIX IVPB 600 MG/50 ML BAG IVPB SCH ×3 (01:42→18:23)
[2023-04-14] MEDS: POLYETHYLENE GLYCOL (HEALTHYLAX) 3350 17 GM PACKET GT SCH ×3 (05:07→21:19)
[2023-04-14 07:02] LABS: BASO % 0.4 % (0-2.0); EOS % 1.1 % (0-4.5); HEMATOCRIT 25.3 % (32.4-45.2); HEMOGLOBIN 8.4 GM/dL (10.7-15.3); LYMPH % 4.8 % (8-40); MCH 29.3 pg (25.7-33.7); MCHC 33.1 g/dl (32.0-36.0); MEAN CELL VOLUME 88.4 fl (80-96); MEAN PLT VOLUME 9.6 fl (7.5-11.1); MONO % 7.1 % (3.8-10.2); NEUT % 86.6 % (42.8-82.8); PLATELET COUNT 112 10^3/uL (134-434); RBC 2.87 M/mm3 (3.60-5.2); RDW 17.5 % (11.6-15.6); WHITE BLOOD COUNT 10.1 K/mm3 (4.0-10.0)
[2023-04-14 07:20] LABS: POTASSIUM 3.7 mmol/L (3.5-5.1)
[2023-04-14 07:23] LABS: ALBUMIN 1.8 g/dl (3.4-5.0); CALCIUM 7.6 mg/dL (8.5-10.1)
[2023-04-14 07:24] LABS: MAGNESIUM 1.8 mg/dL (1.8-2.4)
[2023-04-14 07:27] LABS: CREATININE 2.5 mg/dL (0.55-1.3); PHOSPHOROUS 5.2 mg/dL (2.5-4.9)
[2023-04-14 07:28] LABS: BILIRUBIN,TOTAL 0.4 mg/dL (0.2-1); TOT PROT 5.3 g/dl (6.4-8.2)
[2023-04-14 07:30] LABS: BLOOD UREA NITROGEN 77.2 mg/dL (7-18)
[2023-04-14] MEDS ORDERED: AMINO ACIDS/PROTEIN HYDROLYS 30 ML LIQUID.PKT PO SCH (08:00)
[2023-04-14] MEDS: IPRATROPIUM BR 0.02% 0.5 MG/2.5 ML VIAL.NEB. NEB SCH ×4 (08:25→20:58)
[2023-04-14] MEDS: LEVALBUTEROL HCL 0.63 MG/3 ML VIAL.NEB. IH SCH ×3 (08:25→20:59)
[2023-04-14] MEDS: SODIUM ZIRCONIUM CYCLOSILICATE (LOKELMA) 5 GM PACKET GT SCH (08:33)
[2023-04-14] MEDS: PROPOFOL 1,000,000 MCG/100 ML VIAL IVPB SCH (08:45)
[2023-04-14] MEDS: AMINO ACIDS/PROTEIN HYDROLYS 30 ML LIQUID.PKT GT SCH (08:48)
[2023-04-14] MEDS: METOPROLOL TARTRATE 25 MG TABLET (FP) GT SCH ×3 (08:48→23:23)
[2023-04-14] MEDS: FOLIC ACID 1 MG TABLET (FP) GT SCH (09:06)
[2023-04-14] MEDS: THIAMINE HCL 200 MG/2 ML VIAL IVPB SCH (09:07)
[2023-04-14] MEDS: PANTOPRAZOLE SODIUM 40 MG VIAL IVPUSH SCH (09:07)
[2023-04-14] MEDS: DOCUSATE NA 100 MG/10 ML UNIT-DOSE CUPS GT SCH ×2 (09:07→21:18)
[2023-04-14] MEDS: HEPARIN NA (PORCINE) 5,000 UNITS/ML 1ML VIAL SQ SCH ×2 (09:07→21:19)
[2023-04-14] MEDS: NICOTINE 14 MG/24 HOURS TOPICAL PATCH TD SCH (09:08)
[2023-04-14] MEDS: VORICONAZOLE 200 MG NR SCH ×2 (09:09→21:18)
[2023-04-14] MEDS: DEXMEDETOMIDINE PREMIX 400 MCG/100 ML BAG IVPB SCH ×2 (10:05→20:00)
[2023-04-14] MEDS: amLODIPine BESYLATE 5 MG TABLET (FP) GT SCH (11:59)
[2023-04-14] MEDS: ACETAMINOPHEN 650 MG/20.3 ML ORAL SOLUTION (CUPS) GT PRN ×2 (16:05→21:18)
[2023-04-14] MEDS: SENNOSIDES 8.8 MG/5 ML SYRUP GT SCH ×2 (16:05→21:18)
[2023-04-14] MEDS: CHLORHEXIDINE GLUCONATE 4% CLEANSER FOR DECOLONIZATION TP SCH (22:52)
[2023-04-15] MEDS: CLINDAMYCIN 600MG PREMIX IVPB 600 MG/50 ML BAG IVPB SCH ×3 (02:36→19:01)
[2023-04-15] MEDS: DEXMEDETOMIDINE PREMIX 400 MCG/100 ML BAG IVPB SCH ×3 (05:16→19:00)
[2023-04-15] MEDS: POLYETHYLENE GLYCOL (HEALTHYLAX) 3350 17 GM PACKET GT SCH ×3 (05:16→21:05)
[2023-04-15 06:58] LABS: BASO % 0.6 % (0-2.0); HEMATOCRIT 24.5 % (32.4-45.2); HEMOGLOBIN 8.4 GM/dL (10.7-15.3); LYMPH % 3.3 % (8-40); MCH 29.7 pg (25.7-33.7); MCHC 34.1 g/dl (32.0-36.0); MEAN CELL VOLUME 86.9 fl (80-96); MEAN PLT VOLUME 9.9 fl (7.5-11.1); MONO % 7.3 % (3.8-10.2); NEUT % 87.8 % (42.8-82.8); PLATELET COUNT 126 10^3/uL (134-434); RBC 2.82 M/mm3 (3.60-5.2); RDW 17.4 % (11.6-15.6); WHITE BLOOD COUNT 10.5 K/mm3 (4.0-10.0)
[2023-04-15 07:13] LABS: CHLORIDE 91 mmol/L (98-107); POTASSIUM 4.1 mmol/L (3.5-5.1); SODIUM 130 mmol/L (136-145)
[2023-04-15 07:15] LABS: CALCIUM 7.7 mg/dL (8.5-10.1)
[2023-04-15 07:16] LABS: ALBUMIN 1.8 g/dl (3.4-5.0); ANION GAP 13 MMOL/L (8-16); CO2 26 mmol/L (21-32); GLUCOSE,RANDOM 96 mg/dL (74-106); MAGNESIUM 2.1 mg/dL (1.8-2.4)
[2023-04-15 07:19] LABS: CREATININE 3.4 mg/dL (0.55-1.3); PHOSPHOROUS 8.2 mg/dL (2.5-4.9); SGOT/AST 27 U/L (15-37); SGPT/ALT 29 U/L (13-61)
[2023-04-15 07:21] LABS: BILIRUBIN,TOTAL 0.4 mg/dL (0.2-1); TOT PROT 5.3 g/dl (6.4-8.2)
[2023-04-15 07:22] LABS: ALK PHOS 82 U/L (45-117); BLOOD UREA NITROGEN 104.9 mg/dL (7-18)
[2023-04-15] MEDS: LEVALBUTEROL HCL 0.63 MG/3 ML VIAL.NEB. IH SCH ×3 (09:00→20:05)
[2023-04-15] MEDS: IPRATROPIUM BR 0.02% 0.5 MG/2.5 ML VIAL.NEB. NEB SCH ×4 (09:00→20:05)
[2023-04-15] MEDS ORDERED: BUMETANIDE INJECTION 1 MG/4 ML VIAL IVPUSH ONE (10:15)
[2023-04-15] MEDS ORDERED: SODIUM CHLORIDE 250 ML IV PRN (10:34)
[2023-04-15] MEDS: SENNOSIDES 8.8 MG/5 ML SYRUP GT SCH ×2 (10:45→21:07)
[2023-04-15] MEDS: FOLIC ACID 1 MG TABLET (FP) GT SCH (10:45)
[2023-04-15] MEDS: AMINO ACIDS/PROTEIN HYDROLYS 30 ML LIQUID.PKT GT SCH (10:45)
[2023-04-15] MEDS: VORICONAZOLE 200 MG NR SCH ×2 (10:45→22:28)
[2023-04-15] MEDS: THIAMINE HCL 200 MG/2 ML VIAL IVPB SCH (10:45)
[2023-04-15] MEDS: HEPARIN NA (PORCINE) 5,000 UNITS/ML 1ML VIAL SQ SCH ×2 (10:45→21:05)
[2023-04-15] MEDS: amLODIPine BESYLATE 5 MG TABLET (FP) GT SCH (10:45)
[2023-04-15] MEDS: DOCUSATE NA 100 MG/10 ML UNIT-DOSE CUPS GT SCH ×2 (10:45→21:05)
[2023-04-15] MEDS: NICOTINE 14 MG/24 HOURS TOPICAL PATCH TD SCH (10:45)
[2023-04-15] MEDS: PANTOPRAZOLE SODIUM 40 MG VIAL IVPUSH SCH (10:50)
[2023-04-15] MEDS: METOPROLOL TARTRATE 25 MG TABLET (FP) GT SCH ×3 (13:33→23:32)
[2023-04-15] MEDS: ACETAMINOPHEN 650 MG/20.3 ML ORAL SOLUTION (CUPS) GT PRN (13:40)
[2023-04-15] MEDS: PROPOFOL 1,000,000 MCG/100 ML VIAL IVPB SCH (14:21)
[2023-04-15] MEDS: CHLORHEXIDINE GLUCONATE 4% CLEANSER FOR DECOLONIZATION TP SCH (21:05)
[2023-04-16] MEDS: CLINDAMYCIN 600MG PREMIX IVPB 600 MG/50 ML BAG IVPB SCH ×3 (01:38→17:13)
[2023-04-16] MEDS: POLYETHYLENE GLYCOL (HEALTHYLAX) 3350 17 GM PACKET GT SCH ×3 (06:19→21:04)
[2023-04-16 07:26] LABS: HEMATOCRIT 24.5 % (32.4-45.2); HEMOGLOBIN 8.2 GM/dL (10.7-15.3); MCH 29.7 pg (25.7-33.7); MCHC 33.5 g/dl (32.0-36.0); MEAN CELL VOLUME 88.8 fl (80-96); MEAN PLT VOLUME 9.6 fl (7.5-11.1); PLATELET COUNT 141 10^3/uL (134-434); RBC 2.76 M/mm3 (3.60-5.2); RDW 16.9 % (11.6-15.6); WHITE BLOOD COUNT 11.3 K/mm3 (4.0-10.0)
[2023-04-16 07:41] LABS: CHLORIDE 88 mmol/L (98-107); SODIUM 128 mmol/L (136-145)
[2023-04-16 07:44] LABS: ANION GAP 17 MMOL/L (8-16); CALCIUM 7.9 mg/dL (8.5-10.1); CO2 23 mmol/L (21-32); GLUCOSE,RANDOM 90 mg/dL (74-106)
[2023-04-16 07:45] LABS: MAGNESIUM 2.1 mg/dL (1.8-2.4)
[2023-04-16 07:48] LABS: BLOOD UREA NITROGEN 128.1 mg/dL (7-18); CREATININE 4.3 mg/dL (0.55-1.3)
[2023-04-16] MEDS: LEVALBUTEROL HCL 0.63 MG/3 ML VIAL.NEB. IH SCH ×3 (08:01→20:05)
[2023-04-16] MEDS: IPRATROPIUM BR 0.02% 0.5 MG/2.5 ML VIAL.NEB. NEB SCH ×4 (08:01→20:05)
[2023-04-16 08:48] LABS: PHOSPHOROUS 9.6 mg/dL (2.5-4.9)
[2023-04-16] MEDS: AMINO ACIDS/PROTEIN HYDROLYS 30 ML LIQUID.PKT GT SCH (09:44)
[2023-04-16] MEDS: NICOTINE 14 MG/24 HOURS TOPICAL PATCH TD SCH (09:45)
[2023-04-16] MEDS: PANTOPRAZOLE SODIUM 40 MG VIAL IVPUSH SCH (09:45)
[2023-04-16] MEDS: amLODIPine BESYLATE 5 MG TABLET (FP) GT SCH (09:46)
[2023-04-16] MEDS: THIAMINE HCL 200 MG/2 ML VIAL IVPB SCH (09:46)
[2023-04-16] MEDS: FOLIC ACID 1 MG TABLET (FP) GT SCH (09:46)
[2023-04-16] MEDS: VORICONAZOLE 200 MG NR SCH ×2 (09:46→23:03)
[2023-04-16] MEDS: HEPARIN NA (PORCINE) 5,000 UNITS/ML 1ML VIAL SQ SCH ×2 (09:46→21:04)
[2023-04-16] MEDS: DOCUSATE NA 100 MG/10 ML UNIT-DOSE CUPS GT SCH ×2 (09:46→21:04)
[2023-04-16] MEDS: METOPROLOL TARTRATE 25 MG TABLET (FP) GT SCH ×3 (09:46→23:28)
[2023-04-16] MEDS: SENNOSIDES 8.8 MG/5 ML SYRUP GT SCH ×2 (09:46→23:03)
[2023-04-16] MEDS ORDERED: fentaNYL CITRATE 250 MCG/5 ML VIAL ONE (10:18)
[2023-04-16] MEDS ORDERED: fentaNYL CITRATE 250 MCG/5 ML VIAL IVPUSH ONE (10:45)
[2023-04-16] MEDS ORDERED: ROCURONIUM BROMIDE 50 MG/5 ML VIAL IVPUSH ONE (11:50)
[2023-04-16] MEDS ORDERED: FENTANYL CITRATE/PF 50 MCG/ML VIAL IVPUSH ONE (11:59)
[2023-04-16] MEDS: ACETAMINOPHEN 650 MG/20.3 ML ORAL SOLUTION (CUPS) GT PRN (15:05)
[2023-04-16] MEDS: PROPOFOL 1,000,000 MCG/100 ML VIAL IVPB SCH (15:07)
[2023-04-16] MEDS: DEXMEDETOMIDINE PREMIX 400 MCG/100 ML BAG IVPB SCH ×2 (15:08→17:13)
[2023-04-16] MEDS: CHLORHEXIDINE GLUCONATE 4% CLEANSER FOR DECOLONIZATION TP SCH (21:04)
[2023-04-17] MEDS: DEXMEDETOMIDINE PREMIX 400 MCG/100 ML BAG IVPB SCH ×2 (00:27→16:12)
[2023-04-17] MEDS: CLINDAMYCIN 600MG PREMIX IVPB 600 MG/50 ML BAG IVPB SCH ×3 (01:31→17:53)
[2023-04-17] MEDS: POLYETHYLENE GLYCOL (HEALTHYLAX) 3350 17 GM PACKET GT SCH ×3 (05:00→21:29)
[2023-04-17 07:06] LABS: HEMATOCRIT 24.4 % (32.4-45.2); HEMOGLOBIN 7.9 GM/dL (10.7-15.3); MCH 29.4 pg (25.7-33.7); MCHC 32.6 g/dl (32.0-36.0); MEAN PLT VOLUME 9.8 fl (7.5-11.1); PLATELET COUNT 156 10^3/uL (134-434); RBC 2.71 M/mm3 (3.60-5.2); RDW 16.8 % (11.6-15.6); WHITE BLOOD COUNT 15.5 K/mm3 (4.0-10.0)
[2023-04-17 07:27] LABS: POTASSIUM 3.6 mmol/L (3.5-5.1)
[2023-04-17 07:29] LABS: CALCIUM 7.9 mg/dL (8.5-10.1)
[2023-04-17 07:30] LABS: ALBUMIN 1.7 g/dl (3.4-5.0); MAGNESIUM 2.1 mg/dL (1.8-2.4)
[2023-04-17 07:33] LABS: CREATININE 2.7 mg/dL (0.55-1.3); PHOSPHOROUS 6.8 mg/dL (2.5-4.9)
[2023-04-17 07:34] LABS: BILIRUBIN,TOTAL 0.3 mg/dL (0.2-1)
[2023-04-17 07:35] LABS: TOT PROT 5.3 g/dl (6.4-8.2)
[2023-04-17 07:43] LABS: BLOOD UREA NITROGEN 67.4 mg/dL (7-18)
[2023-04-17] MEDS: LEVALBUTEROL HCL 0.63 MG/3 ML VIAL.NEB. IH SCH ×3 (08:20→20:11)
[2023-04-17] MEDS: IPRATROPIUM BR 0.02% 0.5 MG/2.5 ML VIAL.NEB. NEB SCH ×3 (08:20→20:11)
[2023-04-17 08:47] LABS: ANISOCYTOSIS 1+; MACROCYTOSIS 0; OVALOCYTE 1+
[2023-04-17] MEDS: ACETAMINOPHEN 650 MG/20.3 ML ORAL SOLUTION (CUPS) GT PRN ×2 (08:57→18:27)
[2023-04-17] MEDS: METOPROLOL TARTRATE 25 MG TABLET (FP) GT SCH ×2 (08:58→16:15)
[2023-04-17] MEDS: AMINO ACIDS/PROTEIN HYDROLYS 30 ML LIQUID.PKT GT SCH (08:58)
[2023-04-17] MEDS: DOCUSATE NA 100 MG/10 ML UNIT-DOSE CUPS GT SCH ×2 (09:00→21:29)
[2023-04-17] MEDS: HEPARIN NA (PORCINE) 5,000 UNITS/ML 1ML VIAL SQ SCH ×2 (09:01→21:29)
[2023-04-17] MEDS: FOLIC ACID 1 MG TABLET (FP) GT SCH (09:01)
[2023-04-17] MEDS: NICOTINE 14 MG/24 HOURS TOPICAL PATCH TD SCH (09:01)
[2023-04-17] MEDS: THIAMINE HCL 200 MG/2 ML VIAL IVPB SCH (09:02)
[2023-04-17] MEDS: PANTOPRAZOLE SODIUM 40 MG VIAL IVPUSH SCH (09:02)
[2023-04-17] MEDS: amLODIPine BESYLATE 5 MG TABLET (FP) GT SCH (09:02)
[2023-04-17] MEDS: VORICONAZOLE 200 MG NR SCH ×2 (09:02→21:32)
[2023-04-17] MEDS ORDERED: FUROSEMIDE 40 MG/4 ML INJECTABLE VIAL IVPUSH ONE (10:19)
[2023-04-17] MEDS: SENNOSIDES 8.8 MG/5 ML SYRUP GT SCH ×2 (13:15→21:27)
[2023-04-17] MEDS: PROPOFOL 1,000,000 MCG/100 ML VIAL IVPB SCH (14:37)
[2023-04-17] MEDS ORDERED: FENTANYL CITRATE/PF 50 MCG/ML VIAL IVPUSH PRN (14:52)
[2023-04-17] MEDS: FENTANYL CITRATE/PF 50 MCG/ML VIAL IVPUSH PRN (18:27)
[2023-04-17] MEDS ORDERED: CASPOFUNGIN ACETATE 70 MG in SODIUM CHLORIDE 250 ML IVPB ONE (21:00)
[2023-04-17] MEDS: CHLORHEXIDINE GLUCONATE 4% CLEANSER FOR DECOLONIZATION TP SCH (21:06)
[2023-04-18] MEDS: METOPROLOL TARTRATE 25 MG TABLET (FP) GT SCH ×3 (00:15→17:06)
[2023-04-18] MEDS: ACETAMINOPHEN 650 MG/20.3 ML ORAL SOLUTION (CUPS) GT PRN ×3 (01:02→18:45)
[2023-04-18] MEDS: CLINDAMYCIN 600MG PREMIX IVPB 600 MG/50 ML BAG IVPB SCH ×3 (01:02→17:00)
[2023-04-18] MEDS: POLYETHYLENE GLYCOL (HEALTHYLAX) 3350 17 GM PACKET GT SCH ×3 (06:02→21:22)
[2023-04-18 07:03] LABS: HEMATOCRIT 24.8 % (32.4-45.2); HEMOGLOBIN 8.1 GM/dL (10.7-15.3); MCH 29.2 pg (25.7-33.7); MCHC 32.7 g/dl (32.0-36.0); MEAN CELL VOLUME 89.2 fl (80-96); MEAN PLT VOLUME 9.2 fl (7.5-11.1); PLATELET COUNT 210 10^3/uL (134-434); RBC 2.78 M/mm3 (3.60-5.2); RDW 16.8 % (11.6-15.6); WHITE BLOOD COUNT 16.1 K/mm3 (4.0-10.0)
[2023-04-18 07:18] LABS: POTASSIUM 3.8 mmol/L (3.5-5.1)
[2023-04-18 07:23] LABS: ALBUMIN 1.8 g/dl (3.4-5.0); CALCIUM 8.8 mg/dL (8.5-10.1)
[2023-04-18 07:24] LABS: MAGNESIUM 2.4 mg/dL (1.8-2.4)
[2023-04-18 07:27] LABS: CREATININE 3.6 mg/dL (0.55-1.3); PHOSPHOROUS 8.8 mg/dL (2.5-4.9)
[2023-04-18 07:28] LABS: BILIRUBIN,TOTAL 0.4 mg/dL (0.2-1); TOT PROT 5.6 g/dl (6.4-8.2)
[2023-04-18 07:40] LABS: BLOOD UREA NITROGEN 98.5 mg/dL (7-18)
[2023-04-18] MEDS: IPRATROPIUM BR 0.02% 0.5 MG/2.5 ML VIAL.NEB. NEB SCH ×4 (07:59→20:05)
[2023-04-18] MEDS: LEVALBUTEROL HCL 0.63 MG/3 ML VIAL.NEB. IH SCH ×3 (07:59→20:05)
[2023-04-18] MEDS: FENTANYL CITRATE/PF 50 MCG/ML VIAL IVPUSH PRN ×2 (08:34→21:23)
[2023-04-18 08:43] LABS: ANISOCYTOSIS 0; HELMET CELLS 0; HOWELL-JOLLY BODIES 0; MACROCYTOSIS 0; OVALOCYTE 0; ROULEAU 0; SICKELED CELLS 0; TARGET CELLS 0; TEAR DROP CELLS 0; TOXIC GRANULATION 0
[2023-04-18] MEDS: AMINO ACIDS/PROTEIN HYDROLYS 30 ML LIQUID.PKT GT SCH (08:44)
[2023-04-18] MEDS: PANTOPRAZOLE SODIUM 40 MG VIAL IVPUSH SCH (09:02)
[2023-04-18] MEDS: THIAMINE HCL 200 MG/2 ML VIAL IVPB SCH (09:02)
[2023-04-18] MEDS: SENNOSIDES 8.8 MG/5 ML SYRUP GT SCH ×2 (09:02→21:23)
[2023-04-18] MEDS: amLODIPine BESYLATE 5 MG TABLET (FP) GT SCH (09:02)
[2023-04-18] MEDS: FOLIC ACID 1 MG TABLET (FP) GT SCH (09:02)
[2023-04-18] MEDS: HEPARIN NA (PORCINE) 5,000 UNITS/ML 1ML VIAL SQ SCH ×2 (09:02→21:22)
[2023-04-18] MEDS: VORICONAZOLE 200 MG NR SCH ×2 (09:03→21:23)
[2023-04-18] MEDS: NICOTINE 14 MG/24 HOURS TOPICAL PATCH TD SCH (09:03)
[2023-04-18] MEDS ORDERED: VANCOMYCIN 1,000 MG in DEXTROSE 5%-WATER - 250 ML IVPB ONE (11:25)
[2023-04-18] MEDS ORDERED: SODIUM CHLORIDE 250 ML IV PRN (13:16)
[2023-04-18] MEDS ORDERED: MIDAZOLAM HCL 2 MG/2 ML SINGLE DOSE VIAL ONE (13:29)
[2023-04-18] MEDS ORDERED: MIDAZOLAM HCL 2 MG/2 ML SINGLE DOSE VIAL IVPUSH ONE (13:39)
[2023-04-18] MEDS ORDERED: EPOETIN ALFA-EPBX 3,000 UNIT, EPOETIN ALFA-EPBX 2,000 UNIT IVPUSH ONE (14:00)
[2023-04-18] MEDS ORDERED: EPOETIN ALFA-EPBX 10,000 UNIT/ML VIAL SQ ONE (15:48)
[2023-04-18] MEDS ORDERED: VANCOMYCIN/WATER FOR INJ (PEG) 1,000 MG/200 ML BAG IVPB ONE (16:00)
[2023-04-18] MEDS: CHLORHEXIDINE GLUCONATE 4% CLEANSER FOR DECOLONIZATION TP SCH (21:20)
[2023-04-18] MEDS: CASPOFUNGIN ACETATE 50 MG in SODIUM CHLORIDE 250 ML IVPB SCH (21:23)
[2023-04-19] MEDS: METOPROLOL TARTRATE 25 MG TABLET (FP) GT SCH ×4 (00:02→17:02)
[2023-04-19] MEDS: CLINDAMYCIN 600MG PREMIX IVPB 600 MG/50 ML BAG IVPB SCH (01:06)
[2023-04-19] MEDS: POLYETHYLENE GLYCOL (HEALTHYLAX) 3350 17 GM PACKET GT SCH ×3 (05:22→22:01)
[2023-04-19 07:21] LABS: BASO % 0.5 % (0-2.0); HEMATOCRIT 21.6 % (32.4-45.2); HEMOGLOBIN 7.1 GM/dL (10.7-15.3); LYMPH % 3.2 % (8-40); MCH 29.5 pg (25.7-33.7); MCHC 32.7 g/dl (32.0-36.0); MEAN PLT VOLUME 9.4 fl (7.5-11.1); MONO % 8.2 % (3.8-10.2); NEUT % 87.1 % (42.8-82.8); PLATELET COUNT 200 10^3/uL (134-434); RDW 16.9 % (11.6-15.6); WHITE BLOOD COUNT 13.9 K/mm3 (4.0-10.0)
[2023-04-19] MEDS: LEVALBUTEROL HCL 0.63 MG/3 ML VIAL.NEB. IH SCH ×3 (07:51→20:40)
[2023-04-19] MEDS: IPRATROPIUM BR 0.02% 0.5 MG/2.5 ML VIAL.NEB. NEB SCH ×4 (07:51→20:40)
[2023-04-19 08:40] LABS: MAGNESIUM 2.2 mg/dL (1.8-2.4)
[2023-04-19 08:42] LABS: ALBUMIN 1.7 g/dl (3.4-5.0); BLOOD UREA NITROGEN 80.6 mg/dL (7-18); CALCIUM 8.3 mg/dL (8.5-10.1)
[2023-04-19 08:44] LABS: PHOSPHOROUS 7.6 mg/dL (2.5-4.9)
[2023-04-19 08:45] LABS: CREATININE 3.1 mg/dL (0.55-1.3)
[2023-04-19 08:46] LABS: BILIRUBIN,TOTAL 0.3 mg/dL (0.2-1); TOT PROT 5.3 g/dl (6.4-8.2)
[2023-04-19] MEDS: AMINO ACIDS/PROTEIN HYDROLYS 30 ML LIQUID.PKT GT SCH ×2 (08:58→12:44)
[2023-04-19] MEDS: PROPOFOL 1,000,000 MCG/100 ML VIAL IVPB SCH ×2 (08:59→18:28)
[2023-04-19] MEDS: DEXMEDETOMIDINE PREMIX 400 MCG/100 ML BAG IVPB SCH ×2 (08:59→18:28)
[2023-04-19] MEDS: THIAMINE HCL 200 MG/2 ML VIAL IVPB SCH (09:00)
[2023-04-19] MEDS: PANTOPRAZOLE SODIUM 40 MG VIAL IVPUSH SCH (09:01)
[2023-04-19] MEDS: NICOTINE 14 MG/24 HOURS TOPICAL PATCH TD SCH (09:01)
[2023-04-19] MEDS ORDERED: methylPREDNISolone NA SUCC 40 MG/1 ML VIAL IVPUSH ONE (10:24)
[2023-04-19 10:55] LABS: INR 1.17 (0.83-1.09); PROTHROMBIN TIME (PATIENT) 13.5 SEC (9.7-13.0)
[2023-04-19 10:58] LABS: ACTIVATED PTT 24.5 SECONDS (25.2-36.5)
[2023-04-19] MEDS: HEPARIN NA (PORCINE) 5,000 UNITS/ML 1ML VIAL SQ SCH (12:00)
[2023-04-19] MEDS: FOLIC ACID 1 MG TABLET (FP) GT SCH (12:44)
[2023-04-19] MEDS: SENNOSIDES 8.8 MG/5 ML SYRUP GT SCH ×2 (12:45→22:01)
[2023-04-19] MEDS: amLODIPine BESYLATE 5 MG TABLET (FP) GT SCH (12:45)
[2023-04-19] MEDS ORDERED: GLUCAGON 1 MG KIT ONE (14:21)
[2023-04-19] MEDS ORDERED: FENTANYL CITRATE/PF 50 MCG/ML VIAL ONE (15:02)
[2023-04-19] MEDS ORDERED: GLUCAGON 1 MG KIT IVPUSH ONE (15:05)
[2023-04-19] MEDS ORDERED: FENTANYL CITRATE/PF 50 MCG/ML VIAL IVPUSH ONE (15:08)
[2023-04-19] MEDS: VORICONAZOLE 200 MG NR SCH ×2 (17:01→22:07)
[2023-04-19] MEDS: CASPOFUNGIN ACETATE 50 MG in SODIUM CHLORIDE 250 ML IVPB SCH (22:01)
[2023-04-19] MEDS: CHLORHEXIDINE GLUCONATE 4% CLEANSER FOR DECOLONIZATION TP SCH (22:01)
[2023-04-20] MEDS: METOPROLOL TARTRATE 25 MG TABLET (FP) GT SCH ×4 (00:40→23:28)
[2023-04-20] MEDS: POLYETHYLENE GLYCOL (HEALTHYLAX) 3350 17 GM PACKET GT SCH ×4 (05:58→21:26)
[2023-04-20 07:47] LABS: HEMATOCRIT 23.8 % (32.4-45.2); HEMOGLOBIN 7.8 GM/dL (10.7-15.3); MCH 29.5 pg (25.7-33.7); MCHC 32.7 g/dl (32.0-36.0); MEAN PLT VOLUME 9.2 fl (7.5-11.1); PLATELET COUNT 311 10^3/uL (134-434); RBC 2.64 M/mm3 (3.60-5.2); RDW 16.6 % (11.6-15.6); WHITE BLOOD COUNT 13.7 K/mm3 (4.0-10.0)
[2023-04-20 08:06] LABS: ALBUMIN 1.9 g/dl (3.4-5.0); ANION GAP 19 MMOL/L (8-16); CALCIUM 8.8 mg/dL (8.5-10.1); CHLORIDE 90 mmol/L (98-107); CO2 22 mmol/L (21-32); GLUCOSE,RANDOM 80 mg/dL (74-106); MAGNESIUM 2.5 mg/dL (1.8-2.4); POTASSIUM 4.8 mmol/L (3.5-5.1); SODIUM 132 mmol/L (136-145)
[2023-04-20 08:09] LABS: SGOT/AST 15 U/L (15-37); SGPT/ALT 32 U/L (13-61)
[2023-04-20 08:10] LABS: BILIRUBIN,TOTAL 0.4 mg/dL (0.2-1); CREATININE 4.1 mg/dL (0.55-1.3); TOT PROT 5.9 g/dl (6.4-8.2)
[2023-04-20 08:12] LABS: ALK PHOS 97 U/L (45-117)
[2023-04-20 08:22] LABS: BLOOD UREA NITROGEN 110.7 mg/dL (7-18)
[2023-04-20 08:43] LABS: PHOSPHOROUS 10.1 mg/dL (2.5-4.9)
[2023-04-20] MEDS: LEVALBUTEROL HCL 0.63 MG/3 ML VIAL.NEB. IH SCH ×3 (09:00→20:38)
[2023-04-20] MEDS: IPRATROPIUM BR 0.02% 0.5 MG/2.5 ML VIAL.NEB. NEB SCH ×4 (09:00→20:37)
[2023-04-20] MEDS: VORICONAZOLE 200 MG NR SCH ×2 (09:29→21:32)
[2023-04-20] MEDS: amLODIPine BESYLATE 5 MG TABLET (FP) GT SCH (09:29)
[2023-04-20] MEDS: PANTOPRAZOLE SODIUM 40 MG VIAL IVPUSH SCH (09:29)
[2023-04-20] MEDS: THIAMINE HCL 200 MG/2 ML VIAL IVPB SCH (09:29)
[2023-04-20] MEDS: FOLIC ACID 1 MG TABLET (FP) GT SCH (09:29)
[2023-04-20] MEDS: AMINO ACIDS/PROTEIN HYDROLYS 30 ML LIQUID.PKT GT SCH (09:29)
[2023-04-20] MEDS: SENNOSIDES 8.8 MG/5 ML SYRUP GT SCH ×2 (09:29→21:26)
[2023-04-20 10:05] LABS: ANISOCYTOSIS 2+; MACROCYTOSIS 0; TEAR DROP CELLS 2+; TOXIC GRANULATION 2+
[2023-04-20] MEDS ORDERED: SODIUM CHLORIDE 250 ML IV PRN (10:56)
[2023-04-20] MEDS: NICOTINE 14 MG/24 HOURS TOPICAL PATCH TD SCH (11:32)
[2023-04-20] MEDS ORDERED: ESCITALOPRAM OXALATE 10 MG TABLET PO SCH (15:00)
[2023-04-20] MEDS: ACETAMINOPHEN 650 MG/20.3 ML ORAL SOLUTION (CUPS) GT PRN (21:31)
[2023-04-20] MEDS: CASPOFUNGIN ACETATE 50 MG in SODIUM CHLORIDE 250 ML IVPB SCH (21:31)
[2023-04-20] MEDS: CHLORHEXIDINE GLUCONATE 4% CLEANSER FOR DECOLONIZATION TP SCH (21:32)
[2023-04-20] MEDS ORDERED: diazePAM 2 MG TABLET PO SCH (22:00)
[2023-04-21] MEDS: POLYETHYLENE GLYCOL (HEALTHYLAX) 3350 17 GM PACKET GT SCH ×3 (05:10→21:43)
[2023-04-21] MEDS: ACETAMINOPHEN 650 MG/20.3 ML ORAL SOLUTION (CUPS) GT PRN ×2 (06:29→12:01)
[2023-04-21 07:24] LABS: BASO % 0.2 % (0-2.0); EOS % 1.7 % (0-4.5); HEMATOCRIT 23.1 % (32.4-45.2); HEMOGLOBIN 7.6 GM/dL (10.7-15.3); LYMPH % 2.3 % (8-40); MCH 29.9 pg (25.7-33.7); MEAN CELL VOLUME 90.5 fl (80-96); MEAN PLT VOLUME 9.3 fl (7.5-11.1); MONO % 11.2 % (3.8-10.2); NEUT % 84.6 % (42.8-82.8); PLATELET COUNT 275 10^3/uL (134-434); RBC 2.55 M/mm3 (3.60-5.2)
[2023-04-21 07:29] LABS: POTASSIUM 3.1 mmol/L (3.5-5.1)
[2023-04-21 07:32] LABS: ALBUMIN 1.8 g/dl (3.4-5.0); CALCIUM 8.4 mg/dL (8.5-10.1)
[2023-04-21 07:34] LABS: CREATININE 2.3 mg/dL (0.55-1.3)
[2023-04-21 07:37] LABS: BILIRUBIN,TOTAL 0.3 mg/dL (0.2-1); TOT PROT 5.6 g/dl (6.4-8.2)
[2023-04-21 07:42] LABS: BLOOD UREA NITROGEN 49.6 mg/dL (7-18)
[2023-04-21] MEDS: LEVALBUTEROL HCL 0.63 MG/3 ML VIAL.NEB. IH SCH ×3 (08:47→20:33)
[2023-04-21] MEDS: IPRATROPIUM BR 0.02% 0.5 MG/2.5 ML VIAL.NEB. NEB SCH ×4 (08:47→20:33)
[2023-04-21] MEDS: AMINO ACIDS/PROTEIN HYDROLYS 30 ML LIQUID.PKT GT SCH (08:49)
[2023-04-21] MEDS: METOPROLOL TARTRATE 25 MG TABLET (FP) GT SCH ×3 (08:49→23:42)
[2023-04-21] MEDS: KCL 10 MEQ IVPB 10 MEQ/100 ML INFUS.BAG IVPB SCH ×2 (09:35→10:41)
[2023-04-21] MEDS ORDERED: VANCOMYCIN/WATER FOR INJ (PEG) 1,000 MG/200 ML BAG IVPB ONE (09:52)
[2023-04-21] MEDS: NICOTINE 14 MG/24 HOURS TOPICAL PATCH TD SCH (10:19)
[2023-04-21] MEDS: VORICONAZOLE 200 MG PO SCH ×3 (10:20→23:42)
[2023-04-21] MEDS: FOLIC ACID 1 MG TABLET (FP) GT SCH (10:21)
[2023-04-21] MEDS: amLODIPine BESYLATE 5 MG TABLET (FP) GT SCH (10:21)
[2023-04-21] MEDS: SENNOSIDES 8.8 MG/5 ML SYRUP GT SCH ×2 (10:21→21:43)
[2023-04-21] MEDS: THIAMINE HCL 200 MG/2 ML VIAL IVPB SCH (10:21)
[2023-04-21] MEDS: PANTOPRAZOLE SODIUM 40 MG VIAL IVPUSH SCH (10:42)
[2023-04-21] MEDS: CASPOFUNGIN ACETATE 50 MG in SODIUM CHLORIDE 250 ML IVPB SCH (21:43)
[2023-04-21] MEDS: CHLORHEXIDINE GLUCONATE 4% CLEANSER FOR DECOLONIZATION TP SCH (21:43)
[2023-04-22] MEDS: HYDROmorphone HCl 2 MG/ML VIAL IVPUSH PRN ×3 (01:00→19:33)
[2023-04-22] MEDS: POLYETHYLENE GLYCOL (HEALTHYLAX) 3350 17 GM PACKET GT SCH ×3 (06:47→22:33)
[2023-04-22 07:48] LABS: BASO % 0.3 % (0-2.0); EOS % 2.7 % (0-4.5); LYMPH % 2.6 % (8-40); MCH 29.6 pg (25.7-33.7); MCHC 32.5 g/dl (32.0-36.0); MEAN CELL VOLUME 91.2 fl (80-96); MEAN PLT VOLUME 8.7 fl (7.5-11.1); MONO % 9.2 % (3.8-10.2); NEUT % 85.2 % (42.8-82.8); PLATELET COUNT 250 10^3/uL (134-434); RBC 2.31 M/mm3 (3.60-5.2); RDW 16.6 % (11.6-15.6); WHITE BLOOD COUNT 13.4 K/mm3 (4.0-10.0)
[2023-04-22 07:54] LABS: POTASSIUM 3.6 mmol/L (3.5-5.1)
[2023-04-22 07:59] LABS: ALBUMIN 1.7 g/dl (3.4-5.0); BLOOD UREA NITROGEN 71.5 mg/dL (7-18); MAGNESIUM 2.1 mg/dL (1.8-2.4)
[2023-04-22 08:00] LABS: CALCIUM 7.7 mg/dL (8.5-10.1); HEMOGLOBIN 6.8 GM/dL (10.7-15.3)
[2023-04-22 08:02] LABS: CREATININE 2.9 mg/dL (0.55-1.3)
[2023-04-22 08:04] LABS: BILIRUBIN,TOTAL 0.3 mg/dL (0.2-1); TOT PROT 5.2 g/dl (6.4-8.2)
[2023-04-22] MEDS: IPRATROPIUM BR 0.02% 0.5 MG/2.5 ML VIAL.NEB. NEB SCH ×4 (08:15→20:18)
[2023-04-22] MEDS: LEVALBUTEROL HCL 0.63 MG/3 ML VIAL.NEB. IH SCH ×3 (08:15→20:18)
[2023-04-22] MEDS: METOPROLOL TARTRATE 25 MG TABLET (FP) GT SCH ×2 (08:43→16:35)
[2023-04-22] MEDS: AMINO ACIDS/PROTEIN HYDROLYS 30 ML LIQUID.PKT GT SCH (08:43)
[2023-04-22] MEDS: SENNOSIDES 8.8 MG/5 ML SYRUP GT SCH ×2 (10:28→22:33)
[2023-04-22] MEDS: VORICONAZOLE PO SCH ×2 (10:29→22:34)
[2023-04-22] MEDS: FOLIC ACID 1 MG TABLET (FP) GT SCH (10:32)
[2023-04-22] MEDS: PANTOPRAZOLE SODIUM 40 MG VIAL IVPUSH SCH (10:32)
[2023-04-22] MEDS: NICOTINE 14 MG/24 HOURS TOPICAL PATCH TD SCH (10:32)
[2023-04-22] MEDS: amLODIPine BESYLATE 5 MG TABLET (FP) GT SCH (10:32)
[2023-04-22] MEDS: THIAMINE HCL 200 MG/2 ML VIAL IVPB SCH (10:33)
[2023-04-22] MEDS: CASPOFUNGIN ACETATE 50 MG in SODIUM CHLORIDE 250 ML IVPB SCH (22:32)
[2023-04-22] MEDS: CHLORHEXIDINE GLUCONATE 4% CLEANSER FOR DECOLONIZATION TP SCH (22:33)
[2023-04-23] MEDS: METOPROLOL TARTRATE 25 MG TABLET (FP) GT SCH ×3 (00:15→16:52)
[2023-04-23] MEDS: POLYETHYLENE GLYCOL (HEALTHYLAX) 3350 17 GM PACKET GT SCH ×3 (04:59→21:19)
[2023-04-23] MEDS: LEVALBUTEROL HCL 0.63 MG/3 ML VIAL.NEB. IH SCH ×3 (07:15→20:00)
[2023-04-23] MEDS: IPRATROPIUM BR 0.02% 0.5 MG/2.5 ML VIAL.NEB. NEB SCH (07:15)
[2023-04-23 08:03] LABS: BASO % 0.3 % (0-2.0); EOS % 2.4 % (0-4.5); HEMATOCRIT 24.9 % (32.4-45.2); HEMOGLOBIN 8.2 GM/dL (10.7-15.3); LYMPH % 3.3 % (8-40); MCH 29.7 pg (25.7-33.7); MCHC 32.9 g/dl (32.0-36.0); MEAN CELL VOLUME 90.3 fl (80-96); MEAN PLT VOLUME 8.8 fl (7.5-11.1); PLATELET COUNT 233 10^3/uL (134-434); RBC 2.75 M/mm3 (3.60-5.2); RDW 16.9 % (11.6-15.6); WHITE BLOOD COUNT 12.9 K/mm3 (4.0-10.0)
[2023-04-23 08:17] LABS: POTASSIUM 4.1 mmol/L (3.5-5.1)
[2023-04-23 08:27] LABS: ALBUMIN 1.7 g/dl (3.4-5.0); BLOOD UREA NITROGEN 94.2 mg/dL (7-18); CALCIUM 8.2 mg/dL (8.5-10.1); MAGNESIUM 2.3 mg/dL (1.8-2.4)
[2023-04-23 08:30] LABS: CREATININE 3.4 mg/dL (0.55-1.3); PHOSPHOROUS 6.8 mg/dL (2.5-4.9)
[2023-04-23 08:31] LABS: BILIRUBIN,TOTAL 0.3 mg/dL (0.2-1); TOT PROT 5.3 g/dl (6.4-8.2)
[2023-04-23] MEDS ORDERED: SODIUM CHLORIDE 250 ML IV PRN (08:41)
[2023-04-23] MEDS ORDERED: EPOETIN ALFA-EPBX 10,000 UNIT/ML VIAL SQ ONE (10:00)
[2023-04-23] MEDS: DEXMEDETOMIDINE PREMIX 400 MCG/100 ML BAG IVPB SCH (11:54)
[2023-04-23] MEDS: VORICONAZOLE PO SCH ×2 (11:55→21:22)
[2023-04-23] MEDS: AMINO ACIDS/PROTEIN HYDROLYS 30 ML LIQUID.PKT GT SCH (11:55)
[2023-04-23] MEDS: PANTOPRAZOLE SODIUM 40 MG VIAL IVPUSH SCH (11:55)
[2023-04-23] MEDS: SENNOSIDES 8.8 MG/5 ML SYRUP GT SCH ×2 (11:56→21:19)
[2023-04-23] MEDS: amLODIPine BESYLATE 5 MG TABLET (FP) GT SCH (11:56)
[2023-04-23] MEDS: THIAMINE HCL 200 MG/2 ML VIAL IVPB SCH (11:57)
[2023-04-23] MEDS: NICOTINE 14 MG/24 HOURS TOPICAL PATCH TD SCH (11:57)
[2023-04-23] MEDS: FOLIC ACID 1 MG TABLET (FP) GT SCH (11:57)
[2023-04-23] MEDS: ACETAMINOPHEN 650 MG/20.3 ML ORAL SOLUTION (CUPS) GT PRN (16:52)
[2023-04-23] MEDS: ESCITALOPRAM OXALATE 5 MG/5 ML GT SCH (21:19)
[2023-04-23] MEDS: CHLORHEXIDINE GLUCONATE 4% CLEANSER FOR DECOLONIZATION TP SCH (21:19)
[2023-04-23] MEDS: CASPOFUNGIN ACETATE 50 MG in SODIUM CHLORIDE 250 ML IVPB SCH (21:19)
[2023-04-24] MEDS: METOPROLOL TARTRATE 25 MG TABLET (FP) GT SCH ×3 (02:06→17:00)
[2023-04-24] MEDS: POLYETHYLENE GLYCOL (HEALTHYLAX) 3350 17 GM PACKET GT SCH ×2 (06:09→13:12)
[2023-04-24] MEDS: DEXMEDETOMIDINE PREMIX 400 MCG/100 ML BAG IVPB SCH ×2 (06:17→13:20)
[2023-04-24 07:42] LABS: INR 1.11 (0.83-1.09); PROTHROMBIN TIME (PATIENT) 12.9 SEC (9.7-13.0)
[2023-04-24 07:45] LABS: ACTIVATED PTT 20.8 SECONDS (25.2-36.5)
[2023-04-24 07:46] LABS: BASO % 0.4 % (0-2.0); EOS % 1.8 % (0-4.5); HEMATOCRIT 22.9 % (32.4-45.2); HEMOGLOBIN 7.4 GM/dL (10.7-15.3); MCH 29.6 pg (25.7-33.7); MCHC 32.1 g/dl (32.0-36.0); MEAN PLT VOLUME 8.6 fl (7.5-11.1); MONO % 7.3 % (3.8-10.2); NEUT % 87.5 % (42.8-82.8); PLATELET COUNT 196 10^3/uL (134-434); RBC 2.49 M/mm3 (3.60-5.2); RDW 16.7 % (11.6-15.6); WHITE BLOOD COUNT 12.6 K/mm3 (4.0-10.0)
[2023-04-24] MEDS: LEVALBUTEROL HCL 0.63 MG/3 ML VIAL.NEB. IH SCH ×3 (08:35→20:48)
[2023-04-24 08:45] LABS: POTASSIUM 4.1 mmol/L (3.5-5.1)
[2023-04-24 08:49] LABS: CALCIUM 8.3 mg/dL (8.5-10.1)
[2023-04-24 08:50] LABS: ALBUMIN 1.6 g/dl (3.4-5.0); MAGNESIUM 2.1 mg/dL (1.8-2.4)
[2023-04-24 08:53] LABS: CREATININE 2.1 mg/dL (0.55-1.3)
[2023-04-24 08:54] LABS: BILIRUBIN,TOTAL 0.2 mg/dL (0.2-1)
[2023-04-24 08:58] LABS: BLOOD UREA NITROGEN 57.9 mg/dL (7-18)
[2023-04-24] MEDS: THIAMINE HCL 200 MG/2 ML VIAL IVPB SCH (10:07)
[2023-04-24] MEDS: AMINO ACIDS/PROTEIN HYDROLYS 30 ML LIQUID.PKT GT SCH (10:07)
[2023-04-24] MEDS: FOLIC ACID 1 MG TABLET (FP) GT SCH (10:07)
[2023-04-24] MEDS: amLODIPine BESYLATE 5 MG TABLET (FP) GT SCH (10:07)
[2023-04-24] MEDS: NICOTINE 14 MG/24 HOURS TOPICAL PATCH TD SCH (10:07)
[2023-04-24] MEDS: PANTOPRAZOLE SODIUM 40 MG VIAL IVPUSH SCH (10:07)
[2023-04-24] MEDS: SENNOSIDES 8.8 MG/5 ML SYRUP GT SCH (10:12)
[2023-04-24] MEDS: VORICONAZOLE PO SCH ×2 (10:12→22:27)
[2023-04-24] MEDS: BANATROL PLUS POWDER PACKET GT SCH ×2 (13:16→21:04)
[2023-04-24] MEDS: SCOPOLAMINE HYDROBROMIDE 1 PATCH PATCH.TD72 TD SCH (17:20)
[2023-04-24] MEDS: ESCITALOPRAM OXALATE 5 MG/5 ML GT SCH (21:03)
[2023-04-24] MEDS: CASPOFUNGIN ACETATE 50 MG in SODIUM CHLORIDE 250 ML IVPB SCH (21:03)
[2023-04-24] MEDS: CHLORHEXIDINE GLUCONATE 4% CLEANSER FOR DECOLONIZATION TP SCH (21:04)
[2023-04-25] MEDS: METOPROLOL TARTRATE 25 MG TABLET (FP) GT SCH ×4 (02:34→23:37)
[2023-04-25] MEDS: BANATROL PLUS POWDER PACKET GT SCH ×3 (06:09→21:05)
[2023-04-25 08:11] LABS: HEMOGLOBIN 7.3 GM/dL (10.7-15.3); MCH 30.3 pg (25.7-33.7); MCHC 33.4 g/dl (32.0-36.0); MEAN CELL VOLUME 90.5 fl (80-96); MEAN PLT VOLUME 8.9 fl (7.5-11.1); PLATELET COUNT 193 10^3/uL (134-434); RBC 2.43 M/mm3 (3.60-5.2); RDW 16.6 % (11.6-15.6); WHITE BLOOD COUNT 12.3 K/mm3 (4.0-10.0)
[2023-04-25] MEDS: LEVALBUTEROL HCL 0.63 MG/3 ML VIAL.NEB. IH SCH ×3 (08:40→20:57)
[2023-04-25 08:43] LABS: POTASSIUM 4.6 mmol/L (3.5-5.1)
[2023-04-25 08:45] LABS: CALCIUM 8.2 mg/dL (8.5-10.1); MAGNESIUM 2.2 mg/dL (1.8-2.4)
[2023-04-25 08:46] LABS: ALBUMIN 1.6 g/dl (3.4-5.0); BLOOD UREA NITROGEN 76.6 mg/dL (7-18)
[2023-04-25 08:49] LABS: CREATININE 2.8 mg/dL (0.55-1.3); PHOSPHOROUS 5.8 mg/dL (2.5-4.9)
[2023-04-25 08:50] LABS: BILIRUBIN,TOTAL 0.4 mg/dL (0.2-1)
[2023-04-25] MEDS ORDERED: EPOETIN ALFA-EPBX 10,000 UNIT/ML VIAL IVPUSH ONE (09:00)
[2023-04-25] MEDS ORDERED: SODIUM CHLORIDE 250 ML IV PRN (09:00)
[2023-04-25] MEDS: PANTOPRAZOLE SODIUM 40 MG VIAL IVPUSH SCH (12:39)
[2023-04-25] MEDS: NICOTINE 14 MG/24 HOURS TOPICAL PATCH TD SCH (12:39)
[2023-04-25] MEDS: AMINO ACIDS/PROTEIN HYDROLYS 30 ML LIQUID.PKT GT SCH ×2 (12:40→17:46)
[2023-04-25] MEDS: amLODIPine BESYLATE 5 MG TABLET (FP) GT SCH (12:40)
[2023-04-25] MEDS: FOLIC ACID 1 MG TABLET (FP) GT SCH (12:40)
[2023-04-25] MEDS: THIAMINE HCL 200 MG/2 ML VIAL IVPB SCH (12:40)
[2023-04-25] MEDS: DEXMEDETOMIDINE PREMIX 400 MCG/100 ML BAG IVPB SCH ×2 (12:41→19:05)
[2023-04-25] MEDS: VORICONAZOLE PO SCH ×2 (12:41→21:05)
[2023-04-25] MEDS: CHLORHEXIDINE GLUCONATE 4% CLEANSER FOR DECOLONIZATION TP SCH (21:05)
[2023-04-25] MEDS: CASPOFUNGIN ACETATE 50 MG in SODIUM CHLORIDE 250 ML IVPB SCH (21:05)
[2023-04-25] MEDS: ESCITALOPRAM OXALATE 5 MG/5 ML GT SCH (21:05)
[2023-04-26] MEDS: DEXMEDETOMIDINE PREMIX 400 MCG/100 ML BAG IVPB SCH ×2 (05:35→16:15)
[2023-04-26] MEDS: BANATROL PLUS POWDER PACKET GT SCH ×3 (05:35→21:35)
[2023-04-26 07:31] LABS: HEMATOCRIT 23.8 % (32.4-45.2); HEMOGLOBIN 7.6 GM/dL (10.7-15.3); MCH 29.8 pg (25.7-33.7); MCHC 32.1 g/dl (32.0-36.0); MEAN CELL VOLUME 92.9 fl (80-96); MEAN PLT VOLUME 8.9 fl (7.5-11.1); PLATELET COUNT 224 10^3/uL (134-434); RBC 2.56 M/mm3 (3.60-5.2); RDW 17.1 % (11.6-15.6); WHITE BLOOD COUNT 14.8 K/mm3 (4.0-10.0)
[2023-04-26 07:51] LABS: POTASSIUM 3.7 mmol/L (3.5-5.1)
[2023-04-26 07:55] LABS: ALBUMIN 1.7 g/dl (3.4-5.0); MAGNESIUM 1.8 mg/dL (1.8-2.4)
[2023-04-26 07:58] LABS: CREATININE 1.8 mg/dL (0.55-1.3); PHOSPHOROUS 3.8 mg/dL (2.5-4.9)
[2023-04-26 08:00] LABS: BILIRUBIN,TOTAL 0.3 mg/dL (0.2-1); TOT PROT 5.3 g/dl (6.4-8.2)
[2023-04-26 08:06] LABS: BLOOD UREA NITROGEN 44.2 mg/dL (7-18)
[2023-04-26] MEDS: LEVALBUTEROL HCL 0.63 MG/3 ML VIAL.NEB. IH SCH ×3 (08:08→20:46)
[2023-04-26] MEDS: METOPROLOL TARTRATE 25 MG TABLET (FP) GT SCH ×3 (08:57→23:41)
[2023-04-26 09:03] LABS: ANISOCYTOSIS 0; HELMET CELLS 0; HOWELL-JOLLY BODIES 0; MACROCYTOSIS 0; OVALOCYTE 0; ROULEAU 0; SICKELED CELLS 0; TARGET CELLS 0; TEAR DROP CELLS 0; TOXIC GRANULATION 0
[2023-04-26] MEDS: PANTOPRAZOLE SODIUM 40 MG VIAL IVPUSH SCH (09:17)
[2023-04-26] MEDS: NICOTINE 14 MG/24 HOURS TOPICAL PATCH TD SCH (09:18)
[2023-04-26] MEDS: FOLIC ACID 1 MG TABLET (FP) GT SCH (09:18)
[2023-04-26] MEDS: VITAMIN B COMP W-C 1 EA TABLET (NEPHRO-VITE) GT SCH (09:18)
[2023-04-26] MEDS: amLODIPine BESYLATE 5 MG TABLET (FP) GT SCH (09:18)
[2023-04-26] MEDS: VORICONAZOLE PO SCH ×2 (09:18→22:56)
[2023-04-26] MEDS: AMINO ACIDS/PROTEIN HYDROLYS 30 ML LIQUID.PKT GT SCH ×2 (09:18→17:14)
[2023-04-26] MEDS: THIAMINE HCL 200 MG/2 ML VIAL IVPB SCH (09:19)
[2023-04-26] MEDS ORDERED: VANCOMYCIN/WATER FOR INJ (PEG) 1,000 MG/200 ML BAG IVPB ONE (10:28)
[2023-04-26] MEDS: CHLORHEXIDINE GLUCONATE 4% CLEANSER FOR DECOLONIZATION TP SCH (21:35)
[2023-04-26] MEDS: CASPOFUNGIN ACETATE 50 MG in SODIUM CHLORIDE 250 ML IVPB SCH (21:35)
[2023-04-26] MEDS: ESCITALOPRAM OXALATE 5 MG/5 ML GT SCH (22:36)
[2023-04-27] MEDS: DEXMEDETOMIDINE PREMIX 400 MCG/100 ML BAG IVPB SCH ×2 (04:27→14:36)
[2023-04-27] MEDS: BANATROL PLUS POWDER PACKET GT SCH ×2 (06:07→14:28)
[2023-04-27] MEDS: LEVALBUTEROL HCL 0.63 MG/3 ML VIAL.NEB. IH SCH ×3 (07:35→20:08)
[2023-04-27 07:50] LABS: MCH 29.6 pg (25.7-33.7); MCHC 31.9 g/dl (32.0-36.0); MEAN PLT VOLUME 8.8 fl (7.5-11.1); PLATELET COUNT 197 10^3/uL (134-434); RBC 2.37 M/mm3 (3.60-5.2); RDW 16.7 % (11.6-15.6); WHITE BLOOD COUNT 13.4 K/mm3 (4.0-10.0)
[2023-04-27 08:09] LABS: POTASSIUM 3.9 mmol/L (3.5-5.1)
[2023-04-27 08:14] LABS: CALCIUM 7.8 mg/dL (8.5-10.1)
[2023-04-27 08:16] LABS: ALBUMIN 1.6 g/dl (3.4-5.0); MAGNESIUM 1.9 mg/dL (1.8-2.4)
[2023-04-27 08:18] LABS: CREATININE 2.6 mg/dL (0.55-1.3); PHOSPHOROUS 4.8 mg/dL (2.5-4.9)
[2023-04-27 08:19] LABS: BILIRUBIN,TOTAL 0.3 mg/dL (0.2-1); TOT PROT 4.9 g/dl (6.4-8.2)
[2023-04-27 08:21] LABS: BLOOD UREA NITROGEN 73.5 mg/dL (7-18)
[2023-04-27] MEDS ORDERED: SODIUM CHLORIDE 250 ML IV PRN (08:21)
[2023-04-27 08:38] LABS: ANISOCYTOSIS 1+; MACROCYTOSIS 0
[2023-04-27] MEDS ORDERED: EPOETIN ALFA-EPBX 10,000 UNIT/ML VIAL SQ ONE (09:30)
[2023-04-27] MEDS: AMINO ACIDS/PROTEIN HYDROLYS 30 ML LIQUID.PKT GT SCH ×2 (11:39→17:40)
[2023-04-27] MEDS: NICOTINE 7 MG/24 HOURS TOPICAL PATCH TD SCH (11:39)
[2023-04-27] MEDS: VORICONAZOLE PO SCH ×2 (11:40→21:17)
[2023-04-27] MEDS: PANTOPRAZOLE SODIUM 40 MG VIAL IVPUSH SCH (11:41)
[2023-04-27] MEDS: METOPROLOL TARTRATE 25 MG TABLET (FP) GT SCH ×3 (11:42→23:52)
[2023-04-27] MEDS: VITAMIN B COMP W-C 1 EA TABLET (NEPHRO-VITE) GT SCH (11:42)
[2023-04-27] MEDS: FOLIC ACID 1 MG TABLET (FP) GT SCH (11:42)
[2023-04-27] MEDS: THIAMINE HCL 200 MG/2 ML VIAL IVPB SCH (11:42)
[2023-04-27] MEDS: PROPOFOL 1,000,000 MCG/100 ML VIAL IVPB SCH (12:45)
[2023-04-27] MEDS: POLYETHYLENE GLYCOL (HEALTHYLAX) 3350 17 GM PACKET PO SCH ×2 (14:34→21:18)
[2023-04-27] MEDS: SCOPOLAMINE HYDROBROMIDE 1 PATCH PATCH.TD72 TD SCH (17:40)
[2023-04-27] MEDS: ESCITALOPRAM OXALATE 5 MG/5 ML GT SCH (21:17)
[2023-04-27] MEDS: CASPOFUNGIN ACETATE 50 MG in SODIUM CHLORIDE 250 ML IVPB SCH (21:17)
[2023-04-27] MEDS: CHLORHEXIDINE GLUCONATE 4% CLEANSER FOR DECOLONIZATION TP SCH (21:18)
[2023-04-28 07:42] LABS: BASO % 0.1 % (0-2.0); EOS % 0.9 % (0-4.5); HEMATOCRIT 21.5 % (32.4-45.2); LYMPH % 3.1 % (8-40); MCH 29.8 pg (25.7-33.7); MCHC 31.8 g/dl (32.0-36.0); MEAN CELL VOLUME 93.8 fl (80-96); MONO % 9.5 % (3.8-10.2); NEUT % 86.4 % (42.8-82.8); PLATELET COUNT 180 10^3/uL (134-434); RBC 2.29 M/mm3 (3.60-5.2); RDW 16.7 % (11.6-15.6); WHITE BLOOD COUNT 14.7 K/mm3 (4.0-10.0)
[2023-04-28 07:46] LABS: HEMOGLOBIN 6.8 GM/dL (10.7-15.3)
[2023-04-28 07:54] LABS: POTASSIUM 3.9 mmol/L (3.5-5.1)
[2023-04-28] MEDS: LEVALBUTEROL HCL 0.63 MG/3 ML VIAL.NEB. IH SCH ×3 (07:57→20:13)
[2023-04-28 07:58] LABS: ALBUMIN 1.5 g/dl (3.4-5.0); BLOOD UREA NITROGEN 52.7 mg/dL (7-18); MAGNESIUM 1.8 mg/dL (1.8-2.4)
[2023-04-28 08:01] LABS: CREATININE 1.7 mg/dL (0.55-1.3)
[2023-04-28 08:02] LABS: BILIRUBIN,TOTAL 0.2 mg/dL (0.2-1)
[2023-04-28] MEDS: THIAMINE HCL 200 MG/2 ML VIAL IVPB SCH (09:09)
[2023-04-28] MEDS: PANTOPRAZOLE SODIUM 40 MG VIAL IVPUSH SCH (09:09)
[2023-04-28] MEDS: VORICONAZOLE PO SCH ×2 (09:10→21:30)
[2023-04-28] MEDS: POLYETHYLENE GLYCOL (HEALTHYLAX) 3350 17 GM PACKET PO SCH ×2 (09:10→21:22)
[2023-04-28] MEDS: METOPROLOL TARTRATE 25 MG TABLET (FP) GT SCH ×2 (09:10→16:19)
[2023-04-28] MEDS: AMINO ACIDS/PROTEIN HYDROLYS 30 ML LIQUID.PKT GT SCH (09:10)
[2023-04-28] MEDS: VITAMIN B COMP W-C 1 EA TABLET (NEPHRO-VITE) GT SCH (09:10)
[2023-04-28] MEDS: NICOTINE 7 MG/24 HOURS TOPICAL PATCH TD SCH (09:10)
[2023-04-28] MEDS: FOLIC ACID 1 MG TABLET (FP) GT SCH (09:10)
[2023-04-28] MEDS ORDERED: ACETAMINOPHEN 650 MG/20.3 ML ORAL SOLUTION (CUPS) PEG ONE (09:15)
[2023-04-28] MEDS: PROPOFOL 1,000,000 MCG/100 ML VIAL IVPB SCH (15:43)
[2023-04-28] MEDS: DEXMEDETOMIDINE PREMIX 400 MCG/100 ML BAG IVPB SCH (15:43)
[2023-04-28] MEDS: CHLORHEXIDINE GLUCONATE 4% CLEANSER FOR DECOLONIZATION TP SCH (21:22)
[2023-04-28] MEDS: ESCITALOPRAM OXALATE 5 MG/5 ML GT SCH (21:22)
[2023-04-28] MEDS: CASPOFUNGIN ACETATE 50 MG in SODIUM CHLORIDE 250 ML IVPB SCH (21:26)
[2023-04-29] MEDS: DEXMEDETOMIDINE PREMIX 400 MCG/100 ML BAG IVPB SCH ×2 (00:10→14:22)
[2023-04-29] MEDS: ACETAMINOPHEN 650 MG/20.3 ML ORAL SOLUTION (CUPS) PO PRN (00:24)
[2023-04-29] MEDS: METOPROLOL TARTRATE 25 MG TABLET (FP) GT SCH (00:25)
[2023-04-29] MEDS ORDERED: NOREPINEPHRINE BITARTRATE 4,000 MCG in DEXTROSE 5%-WATER - 496 ML IV SCH (02:45)
[2023-04-29] MEDS: NOREPINEPHRINE BITARTRATE/D5W 8 MG/250 ML BAG IVPB SCH ×2 (02:47→22:49)
[2023-04-29 09:01] LABS: POTASSIUM 4.3 mmol/L (3.5-5.1)
[2023-04-29 09:04] LABS: CALCIUM 8.4 mg/dL (8.5-10.1)
[2023-04-29 09:05] LABS: ALBUMIN 1.7 g/dl (3.4-5.0); BLOOD UREA NITROGEN 76.7 mg/dL (7-18); HEMOGLOBIN 9.3 GM/dL (10.7-15.3); MAGNESIUM 2.1 mg/dL (1.8-2.4); MCH 29.5 pg (25.7-33.7); MCHC 33.2 g/dl (32.0-36.0); MEAN PLT VOLUME 9.1 fl (7.5-11.1); PLATELET COUNT 228 10^3/uL (134-434); RBC 3.15 M/mm3 (3.60-5.2); RDW 21.2 % (11.6-15.6); WHITE BLOOD COUNT 19.4 K/mm3 (4.0-10.0)
[2023-04-29 09:08] LABS: CREATININE 2.4 mg/dL (0.55-1.3)
[2023-04-29 09:11] LABS: PHOSPHOROUS 5.8 mg/dL (2.5-4.9)
[2023-04-29 09:12] LABS: BILIRUBIN,TOTAL 0.4 mg/dL (0.2-1); TOT PROT 5.5 g/dl (6.4-8.2)
[2023-04-29] MEDS: VORICONAZOLE PO SCH ×2 (09:14→21:41)
[2023-04-29] MEDS: POLYETHYLENE GLYCOL (HEALTHYLAX) 3350 17 GM PACKET PO SCH ×2 (09:14→21:37)
[2023-04-29] MEDS: VITAMIN B COMP W-C 1 EA TABLET (NEPHRO-VITE) GT SCH (09:14)
[2023-04-29] MEDS: NICOTINE 7 MG/24 HOURS TOPICAL PATCH TD SCH (09:14)
[2023-04-29] MEDS: FOLIC ACID 1 MG TABLET (FP) GT SCH (09:14)
[2023-04-29] MEDS: AMINO ACIDS/PROTEIN HYDROLYS 30 ML LIQUID.PKT GT SCH (09:14)
[2023-04-29] MEDS: PANTOPRAZOLE SODIUM 40 MG VIAL IVPUSH SCH (09:14)
[2023-04-29] MEDS: THIAMINE HCL 200 MG/2 ML VIAL IVPB SCH (09:15)
[2023-04-29] MEDS ORDERED: SODIUM CHLORIDE 250 ML IV PRN (10:18)
[2023-04-29 11:07] LABS: ARTERIAL BLD GAS O2 SATURATION 95.5 % (95-98); ARTERIAL BLOOD GAS BASE EXCESS -2.5 mmol/L (-2-2); ARTERIAL BLOOD GAS PO2 87.3 mmHg (80-100); ARTERIAL BLOOD GAS pH 7.285 (7.350-7.450)
[2023-04-29 11:09] LABS: ALLENS TEST POSITIVE
[2023-04-29 11:10] LABS: VENT MODE A/C; VENT RATE 16
[2023-04-29] MEDS: CHLORHEXIDINE GLUCONATE 4% CLEANSER FOR DECOLONIZATION TP SCH (21:37)
[2023-04-29] MEDS: CASPOFUNGIN ACETATE 50 MG in SODIUM CHLORIDE 250 ML IVPB SCH (21:40)
[2023-04-29] MEDS: ESCITALOPRAM OXALATE 5 MG/5 ML GT SCH (21:40)
[2023-04-30] MEDS: DEXMEDETOMIDINE PREMIX 400 MCG/100 ML BAG IVPB SCH (04:17)
[2023-04-30] MEDS: NOREPINEPHRINE BITARTRATE/D5W 8 MG/250 ML BAG IVPB SCH (04:17)
[2023-04-30 08:22] LABS: BASO % 0.6 % (0-2.0); EOS % 0.3 % (0-4.5); HEMATOCRIT 25.2 % (32.4-45.2); HEMOGLOBIN 8.2 GM/dL (10.7-15.3); LYMPH % 1.9 % (8-40); MCHC 32.6 g/dl (32.0-36.0); MEAN CELL VOLUME 88.9 fl (80-96); MEAN PLT VOLUME 8.8 fl (7.5-11.1); MONO % 7.3 % (3.8-10.2); NEUT % 89.9 % (42.8-82.8); PLATELET COUNT 210 10^3/uL (134-434); RBC 2.84 M/mm3 (3.60-5.2); RDW 20.6 % (11.6-15.6); WHITE BLOOD COUNT 17.6 K/mm3 (4.0-10.0)
[2023-04-30 08:47] LABS: POTASSIUM 4.5 mmol/L (3.5-5.1)
[2023-04-30 08:49] LABS: CALCIUM 8.1 mg/dL (8.5-10.1)
[2023-04-30 08:50] LABS: ALBUMIN 1.5 g/dl (3.4-5.0); BLOOD UREA NITROGEN 95.3 mg/dL (7-18)
[2023-04-30 08:53] LABS: CREATININE 2.8 mg/dL (0.55-1.3)
[2023-04-30 08:55] LABS: BILIRUBIN,TOTAL 0.3 mg/dL (0.2-1); TOT PROT 5.1 g/dl (6.4-8.2)
[2023-04-30 09:24] LABS: ANISOCYTOSIS 2+; MACROCYTOSIS 1+; OVALOCYTE 1+
[2023-04-30] MEDS ORDERED: morphine SULFATE 4 MG/ML VIAL ONE (09:24)
[2023-04-30] MEDS ORDERED: FENTANYL IVPB 500 MCG/100 ML BAG IVPB SCH (09:45)
[2023-04-30] MEDS ORDERED: morphine SULFATE 4 MG/ML VIAL IVPUSH ONE (09:45)
[2023-04-30] MEDS: PROPOFOL 1,000,000 MCG/100 ML VIAL IVPB SCH (09:58)
[2023-04-30] MEDS: AMINO ACIDS/PROTEIN HYDROLYS 30 ML LIQUID.PKT GT SCH (10:51)
[2023-04-30] MEDS: VITAMIN B COMP W-C 1 EA TABLET (NEPHRO-VITE) GT SCH (10:52)
[2023-04-30] MEDS: VORICONAZOLE PO SCH ×2 (10:52→22:18)
[2023-04-30] MEDS: NICOTINE 7 MG/24 HOURS TOPICAL PATCH TD SCH (10:52)
[2023-04-30] MEDS: POLYETHYLENE GLYCOL (HEALTHYLAX) 3350 17 GM PACKET PO SCH ×2 (10:52→21:26)
[2023-04-30] MEDS: THIAMINE HCL 200 MG/2 ML VIAL IVPB SCH (10:52)
[2023-04-30] MEDS: FOLIC ACID 1 MG TABLET (FP) GT SCH (10:52)
[2023-04-30] MEDS ORDERED: VANCOMYCIN/WATER FOR INJ (PEG) 1,000 MG/200 ML BAG IVPB ONE (13:45)
[2023-04-30] MEDS: FENTANYL NS IVPB 500 MCG/100 ML BAG IVPB SCH (18:07)
[2023-04-30] MEDS: CASPOFUNGIN ACETATE 50 MG in SODIUM CHLORIDE 250 ML IVPB SCH (21:26)
[2023-04-30] MEDS: CHLORHEXIDINE GLUCONATE 4% CLEANSER FOR DECOLONIZATION TP SCH (21:26)
[2023-04-30] MEDS: PANTOPRAZOLE SODIUM 40 MG VIAL IVPUSH SCH (21:31)
[2023-04-30] MEDS: ESCITALOPRAM OXALATE 5 MG/5 ML GT SCH (22:18)
[2023-05-01] MEDS: NOREPINEPHRINE BITARTRATE/D5W 8 MG/250 ML BAG IVPB SCH ×5 (01:13→21:20)
[2023-05-01] MEDS: PROPOFOL 1,000,000 MCG/100 ML VIAL IVPB SCH ×2 (02:42→17:05)
[2023-05-01] MEDS: DEXMEDETOMIDINE PREMIX 400 MCG/100 ML BAG IVPB SCH (06:03)
[2023-05-01] MEDS: ACETAMINOPHEN 650 MG/20.3 ML ORAL SOLUTION (CUPS) PO PRN (06:03)
[2023-05-01 06:28] LABS: BASO % 0.5 % (0-2.0); EOS % 0.1 % (0-4.5); HEMATOCRIT 26.4 % (32.4-45.2); HEMOGLOBIN 8.3 GM/dL (10.7-15.3); LYMPH % 1.5 % (8-40); MCH 28.9 pg (25.7-33.7); MCHC 31.6 g/dl (32.0-36.0); MEAN CELL VOLUME 91.5 fl (80-96); MEAN PLT VOLUME 8.7 fl (7.5-11.1); MONO % 9.9 % (3.8-10.2); PLATELET COUNT 262 10^3/uL (134-434); RBC 2.89 M/mm3 (3.60-5.2); RDW 20.8 % (11.6-15.6); WHITE BLOOD COUNT 19.6 K/mm3 (4.0-10.0)
[2023-05-01] MEDS: VASOPRESSIN 40 UNITS/100 ML BAG IV SCH ×2 (06:35→21:19)
[2023-05-01 06:48] LABS: POTASSIUM 4.1 mmol/L (3.5-5.1)
[2023-05-01 06:50] LABS: ALBUMIN 1.4 g/dl (3.4-5.0); BLOOD UREA NITROGEN 81.8 mg/dL (7-18)
[2023-05-01 06:53] LABS: CREATININE 2.6 mg/dL (0.55-1.3); PHOSPHOROUS 6.9 mg/dL (2.5-4.9)
[2023-05-01 06:55] LABS: BILIRUBIN,TOTAL 0.5 mg/dL (0.2-1)
[2023-05-01] MEDS: THIAMINE HCL 200 MG/2 ML VIAL IVPB SCH (09:28)
[2023-05-01] MEDS: AMINO ACIDS/PROTEIN HYDROLYS 30 ML LIQUID.PKT GT SCH (09:28)
[2023-05-01] MEDS: PANTOPRAZOLE SODIUM 40 MG VIAL IVPUSH SCH ×2 (09:28→21:17)
[2023-05-01] MEDS: VITAMIN B COMP W-C 1 EA TABLET (NEPHRO-VITE) GT SCH (09:29)
[2023-05-01] MEDS: POLYETHYLENE GLYCOL (HEALTHYLAX) 3350 17 GM PACKET PO SCH ×2 (09:29→21:17)
[2023-05-01] MEDS: VORICONAZOLE PO SCH ×2 (09:29→21:21)
[2023-05-01] MEDS: NICOTINE 7 MG/24 HOURS TOPICAL PATCH TD SCH (09:31)
[2023-05-01] MEDS: FOLIC ACID 1 MG TABLET (FP) GT SCH (09:31)
[2023-05-01 10:57] LABS: ARTERIAL BLD GAS O2 SATURATION 78.6 % (95-98); ARTERIAL BLOOD GAS BASE EXCESS -11.1 mmol/L (-2-2)
[2023-05-01 10:58] LABS: ALLENS TEST POSITIVE; VENT MODE AC; VENT RATE 24
[2023-05-01 11:01] LABS: ARTERIAL BLOOD GAS pH 6.912 (7.350-7.450)
[2023-05-01] MEDS: HYDROCORTISONE SOD SUCCINATE 100 MG/2 ML VIAL IVPUSH SCH ×2 (11:38→18:28)
[2023-05-01] MEDS: SODIUM BICARBONATE 8.4% 50 MEQ/50 ML DISP.SYRIN IVPUSH SCH ×4 (11:46→23:06)
[2023-05-01 12:58] LABS: ARTERIAL BLOOD GAS BASE EXCESS -7.2 mmol/L (-2-2); ARTERIAL BLOOD GAS PO2 62.5 mmHg (80-100)
[2023-05-01 13:00] LABS: VENT MODE A/L; VENT RATE 30
[2023-05-01 13:02] LABS: ARTERIAL BLOOD GAS pH 6.928 (7.350-7.450)
[2023-05-01] MEDS ORDERED: SODIUM BICARBONATE 8.4% 50 MEQ/50 ML DISP.SYRIN IVPUSH ONE (13:07)
[2023-05-01] MEDS ORDERED: VECURONIUM BROMIDE 20 MG/20 ML VIAL ONE (13:22)
[2023-05-01] MEDS ORDERED: VECURONIUM BROMIDE 50 MG/50 ML VIAL IVPUSH ONE (13:27)
[2023-05-01] MEDS ORDERED: MEROPENEM 1 GM in DEXTROSE 5%-WATER 100 ML IVPB ONE (13:36)
[2023-05-01] MEDS: VECURONIUM BROMIDE 100 MG/100 ML BAG IVPB SCH (13:45)
[2023-05-01] MEDS ORDERED: MINERAL OIL/PETROLATUM,WHITE 3.5 GM TUBE OU PRN (15:00)
[2023-05-01 16:23] LABS: ARTERIAL BLD GAS O2 SATURATION 85.4 % (95-98); ARTERIAL BLOOD GAS BASE EXCESS -9.2 mmol/L (-2-2)
[2023-05-01] MEDS: FENTANYL NS IVPB 500 MCG/100 ML BAG IVPB SCH (16:23)
[2023-05-01 16:39] LABS: VENT MODE A/C; VENT RATE 34
[2023-05-01 16:49] LABS: ARTERIAL BLOOD GAS pH 6.971 (7.350-7.450)
[2023-05-01] MEDS: ESCITALOPRAM OXALATE 5 MG/5 ML GT SCH (21:18)
[2023-05-01] MEDS: CASPOFUNGIN ACETATE 50 MG in SODIUM CHLORIDE 250 ML IVPB SCH (21:18)
[2023-05-01] MEDS: CHLORHEXIDINE GLUCONATE 4% CLEANSER FOR DECOLONIZATION TP SCH (21:18)
[2023-05-02] MEDS: HYDROCORTISONE SOD SUCCINATE 100 MG/2 ML VIAL IVPUSH SCH ×2 (01:27→09:49)
[2023-05-02] MEDS: NOREPINEPHRINE BITARTRATE/D5W 8 MG/250 ML BAG IVPB SCH ×2 (01:28→02:15)
[2023-05-02] MEDS: SODIUM BICARBONATE 8.4% 50 MEQ/50 ML DISP.SYRIN IVPUSH SCH ×4 (02:12→11:31)
[2023-05-02] MEDS: DEXMEDETOMIDINE PREMIX 400 MCG/100 ML BAG IVPB SCH (02:12)
[2023-05-02] MEDS ORDERED: POLYETHYLENE GLYCOL (HEALTHYLAX) 3350 17 GM PACKET GT SCH (04:13)
[2023-05-02] MEDS ORDERED: ACETAMINOPHEN 650 MG/20.3 ML ORAL SOLUTION (CUPS) GT PRN (04:13)
[2023-05-02] MEDS ORDERED: VORICONAZOLE NR SCH (04:14)
[2023-05-02] MEDS: FENTANYL NS IVPB 500 MCG/100 ML BAG IVPB SCH ×2 (06:15→11:31)
[2023-05-02] MEDS: PROPOFOL 1,000,000 MCG/100 ML VIAL IVPB SCH ×2 (06:32→09:46)
[2023-05-02] MEDS: VASOPRESSIN 40 UNITS/100 ML BAG IV SCH (06:34)
[2023-05-02] MEDS: VECURONIUM BROMIDE 100 MG/100 ML BAG IVPB SCH (09:00)
[2023-05-02] MEDS: PANTOPRAZOLE SODIUM 40 MG VIAL IVPUSH SCH ×2 (09:40→10:05)
[2023-05-02] MEDS: NICOTINE 7 MG/24 HOURS TOPICAL PATCH TD SCH (09:41)
[2023-05-02] MEDS: AMINO ACIDS/PROTEIN HYDROLYS 30 ML LIQUID.PKT GT SCH (09:43)
[2023-05-02] MEDS: VITAMIN B COMP W-C 1 EA TABLET (NEPHRO-VITE) GT SCH (09:45)
[2023-05-02] MEDS: THIAMINE HCL 200 MG/2 ML VIAL IVPB SCH (09:46)
[2023-05-02] MEDS: FOLIC ACID 1 MG TABLET (FP) GT SCH (09:50)
[2023-05-02 10:09] VITALS: TEMP 96.3
[2023-05-02] MEDS ORDERED: MORPHINE SULFATE/0.9% NACL/PF 100 MG/100 ML BAG IVPB SCH (10:30)
[2023-05-02 11:52] VITALS: RESP 30
[2023-05-02 12:13] VITALS: BP 88/38; PULSE 61
== END 2023-05-02 12:57 | disposition expired | DRG 4 ==
LOC: JER 21:37 → JERBED 03-29 03:51 → JICU 03-29 05:19
PROVIDERS: ADMIT Internal Medicine; ATTEND Internal Medicine Pulmonary Disease
PROC: 0BH17EZ Insertion of Endotracheal Airway into Trachea, Via Natural or Artificial Opening (ICD-10-PCS; principal; 2023-03-29)
PROC: 5A1955Z Respiratory Ventilation, Greater than 96 Consecutive Hours (ICD-10-PCS; 2023-03-29)
PROC: 4A133B1 Monitoring of Arterial Pressure, Peripheral, Percutaneous Approach (ICD-10-PCS; 2023-03-29)
PROC: 4A133J1 Monitoring of Arterial Pulse, Peripheral, Percutaneous Approach (ICD-10-PCS; 2023-03-29)
PROC: 05HN33Z Insertion of Infusion Device into Left Internal Jugular Vein, Percutaneous Approach (ICD-10-PCS; 2023-03-30)
PROC: B544ZZA Ultrasonography of Left Jugular Veins, Guidance (ICD-10-PCS; 2023-03-30)
PROC: 0B9J8ZX Drainage of Left Lower Lung Lobe, Via Natural or Artificial Opening Endoscopic, Diagnostic (ICD-10-PCS; 2023-04-07)
PROC: 0B113Z4 Bypass Trachea to Cutaneous, Percutaneous Approach (ICD-10-PCS; 2023-04-12)
PROC: 05HM33Z Insertion of Infusion Device into Right Internal Jugular Vein, Percutaneous Approach (ICD-10-PCS; 2023-04-12)
PROC: B543ZZA Ultrasonography of Right Jugular Veins, Guidance (ICD-10-PCS; 2023-04-12)
PROC: 0BJ08ZZ Inspection of Tracheobronchial Tree, Via Natural or Artificial Opening Endoscopic (ICD-10-PCS; 2023-04-12)
PROC: 0DH63UZ Insertion of Feeding Device into Stomach, Percutaneous Approach (ICD-10-PCS; 2023-04-19)
DX: J96.21 Acute and chronic respiratory failure with hypoxia (principal); A41.89 Other specified sepsis; G93.41 Metabolic encephalopathy; J15.8 Pneumonia due to other specified bacteria; N18.6 End stage renal disease; J44.1 Chronic obstructive pulmonary disease with (acute) exacerbation; K62.5 Hemorrhage of anus and rectum; N13.0 Hydronephrosis with ureteropelvic junction obstruction; E87.4 Mixed disorder of acid-base balance; F11.20 Opioid dependence, uncomplicated; G62.81 Critical illness polyneuropathy; E87.29 Other acidosis; J90 Pleural effusion, not elsewhere classified; N17.9 Acute kidney failure, unspecified; I12.0 Hypertensive chronic kidney disease with stage 5 chronic kidney disease or end stage renal disease; I47.10 Supraventricular tachycardia, unspecified; N39.0 Urinary tract infection, site not specified; B44.1 Other pulmonary aspergillosis; M54.50 Low back pain, unspecified; J96.22 Acute and chronic respiratory failure with hypercapnia; K80.20 Calculus of gallbladder without cholecystitis without obstruction; K59.00 Constipation, unspecified; E87.5 Hyperkalemia; N20.0 Calculus of kidney; D69.6 Thrombocytopenia, unspecified; J44.9 Chronic obstructive pulmonary disease, unspecified; H91.8X3 Other specified hearing loss, bilateral; D64.9 Anemia, unspecified; F41.8 Other specified anxiety disorders; Z90.13 Acquired absence of bilateral breasts and nipples; Z85.42 Personal history of malignant neoplasm of other parts of uterus; Z85.3 Personal history of malignant neoplasm of breast; Z88.0 Allergy status to penicillin
CPT/HCPCS: 0241U-QW; 31500; 36415; 36430; 36600; 49440; 70450-TC; 71045-TC-FY; 71250-TC; 74018-TC-FY; 74176-TC; 76705-TC; 76775-TC; 80048; 80053; 80299; 80307; 81003; 82140; 82150; 82272; 82436; 82550; 82553; 82570; 82607; 82803; 82962; 82977; 83605; 83690; 83735; 83880; 84100; 84133; 84156; 84300; 84439; 84443; 84484; 84540; 85025; 85027; 85610; 85730; 86705; 86708; 86803; 86850; 86900; 86901; 86922; 87040; 87070; 87077; 87086; 87102; 87106; 87107; 87116; 87186; 87205; 87206; 87210; 87305; 87340; 87449; 87522; 87556; 88108; 88305-TC; 93005; 93010; 93306-TC; 93970-TC; 94002; 94640; 94660; 97163-GP; 99285-25; G0480; J0637; J1644; J3465; J3490; P9058; Q5106